=== PATIENT | male | born 1950 | race Caucasian/White ===

== ENCOUNTER 2019-10-22 13:43 | Emergency (ER) | payer OTHER ==
[2019-10-22] MEDS ORDERED: GLUCAGON 1 MG/VIAL ONE (14:46)
[2019-10-22 14:51] LABS: Basophils % 0.9 % (0-1.3); Lymphocytes % 25.3 % (15.3-44.8); MPV 7.8 fL (7.6-11.3); RBC Red Blood Cell Count 4.04 M/uL (4.33-5.43)
[2019-10-22 15:07] LABS: Potassium 3.7 mmol/L (3.5-5.1)
--- NOTE | 2019-10-22 15:36 | EDPHYS ---
Physician Documentation [facility] Name: Cristóbal aPlm Age: 69 yrs Sex: Male : 1950 Arrival Date: 10/22/2019 Time: 13:49 Bed 13 Private MD: Farrukh Lawton HPI: 14:15 This 69 yrs old Male presents to ER via Ambulatory with complaints of la1 Abdominal Pain, Difficulty Swallowing. 14:15 The patient presents with abdominal pain in the epigastric area. Onset: The la1 symptoms/episode began/occurred last night. The symptoms do not radiate. Associated signs and symptoms: none. The symptoms are described as sharp. Modifying factors: The symptoms are alleviated by nothing, the symptoms are aggravated by drinking, food. Severity of pain: At its worst the pain was moderate. The patient has experienced similar episodes in the past. 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 Every time after he eats it feels like food is getting stuck but he is usually able to get it down. Last night he ate a piece of steak and now feels like it is stuck, unable to eat food or drink water without vomiting. Historical: - Allergies: 14:08 No Known Allergies; iw 14:09 No Known Allergies; ca1 - Home Meds: 14:09 carvedilol oral oral 2 times per day [Active]; Lisinopril Oral twice a day [Active]; ca1 Metformin Oral once daily [Active]; Trazodone Oral [Active]; atorvastatin 40 mg Oral tab 1 tab once daily [Active]; loratadine oral oral [Active]; - PMHx: 14:09 High Cholesterol; Hypertension; Prostate Cancer; ca1 - PSHx: 14:09 Hernia repair; shoulder surgery; Knee surgery; ca1 - Immunization history:: Adult Immunizations up to date. - Social history:: Smoking status: Patient denies any tobacco usage or history of. ROS: 14:17 Constitutional: Negative for fever, chills, and weight loss, Eyes: Negative for injury, la1 pain, redness, and discharge, ENT: Negative for injury, pain, and discharge, Neck: Negative for injury, pain, and swelling, Cardiovascular: Negative for chest pain, palpitations, and edema, Respiratory: Negative for shortness of breath, cough, wheezing, and pleuritic chest pain. 14:17 Back: Negative for injury and pain, : Negative for injury, bleeding, discharge, and swelling, MS/Extremity: Negative for injury and deformity, Skin: Negative for injury, rash, and discoloration, Neuro: Negative for headache, weakness, numbness, tingling, and seizure. 14:17 Abdomen/GI: Positive for abdominal pain, nausea and vomiting. Exam: 14:18 Constitutional: This is a well developed, well nourished patient who is awake, alert, la1 and in no acute distress. Head/Face: Normocephalic, atraumatic. Eyes: Pupils equal round and reactive to light, extra-ocular motions intact. ENT: Mucous membranes moist. Neck: Trachea midline Chest/axilla: Normal chest wall appearance and motion. Cardiovascular: Regular rate and rhythm with a normal S1 and S2. Respiratory: Lungs have equal breath sounds bilaterally, clear to auscultation 14:18 Abdomen/GI: Inspection: obese Bowel sounds: normal, Palpation: abdomen is soft and non-tender, in all quadrants. Vital Signs: 14:05 BP 143 / 87; Pulse 73; Resp 16; Temp 98.0; Pulse Ox 97% on R/A; iw 14:55 BP 125 / 74; Pulse 74; Resp 16 S; Pulse Ox 96% on R/A; ca1 15:53 BP 136 / 75; Pulse 69; Resp 17 S; Pulse Ox 99% on R/A; ca1 16:35 BP 149 / 86; Pulse 76; Resp 17 S; Pulse Ox 99% on R/A; ca1 MDM: 14:00 Patient medically screened. la1 15:22 ED course: pt attempted to swallow fluids after glucagon IV but vomited about 30 la1 seconds after ingestion. Still feels like it is stuck there.. 14:14 Order name: CBC with Diff; Complete Time: 15:04 14:14 Order name: BMP; Complete Time: 15:08 la1 14:14 Order name: IV; Complete Time: 14:39 la1 Administered Medications: 14:46 Drug: Glucagon 1 mg Route: IVP; Site: right antecubital; ca1 16:03 Follow up: Response: No adverse reaction ca1 Disposition: 10/22/19 15:35 Transfer ordered to [facility]. Diagnosis is Esophageal obstruction. - Reason for transfer: Higher level of care. - Accepting physician is Dr. Bustos. - Condition is Stable. - Problem is new. - Symptoms have improved. Addendum: 10/23/2019 18:02 Co-signature as Attending Physician, Farrukh Cunningham MD I agree with the assessment and c diaz plan of care. Signatures: Dispatcher [employer] EDFarrukh Parada MD MD cha Williams, Irene, RN RN iw Milan Lafleur, SUPERVISOR [employer]-C SUPERVISOR [employer]-Cla1 Tika Wagner Cheryl RN RN ca1 Corrections: (The following items were deleted from the chart) 15:56 15:35 10/22/2019 15:35 Transfer ordered to [facility]. Diagnosis is eb Esophageal obstruction. Reason for transfer: Higher level of care. [facility] Condition is Stable. Problem is new. Symptoms have improved. [facility] 17:01 15:56 10/22/2019 15:35 Transfer ordered to [facility]. Diagnosis is ca1 Esophageal obstruction. Reason for transfer: Higher level of care. Accepting physician is Dr. Bustos. Condition is Stable. Problem is new. Symptoms have improved. eb
--- NOTE | 2019-10-22 15:36 | ER ---
Nurse's Notes [facility] Name: Cristóbal Palm Age: 69 yrs Sex: Male : 1950 Arrival Date: 10/22/2019 Time: 13:49 Bed 13 Private MD: Diagnosis: Esophageal obstruction Presentation: 14:05 Chief complaint: Patient states: opening to his stomach has been getting smaller, has iw had to have it stretched out in the past, is due to see GI this month, last night was eating steak and it won't pass into his stomach, has tried drinking water and ends up vomiting water back up. Coronavirus screen: The patient has NOT traveled to [place] in the past 14 days. Proceed with normal triage procedures. Ebola Screen: Patient negative for fever greater than or equal to 101.5 degrees Fahrenheit, and additional compatible Ebola Virus Disease symptoms Patient denies exposure to infectious person. Patient denies travel to an Ebola-affected area in the 21 days before illness onset. No symptoms or risks identified at this time. Initial Sepsis Screen: Does the patient meet any 2 criteria? No. Patient's initial sepsis screen is negative. Does the patient have a suspected source of infection? No. Patient's initial sepsis screen is negative. Risk Assessment: Do you want to hurt yourself or someone else? Patient reports no desire to harm self or others. Note pt sees Dr. Callum Stovall at [facility] for GI. 14:05 Method Of Arrival: Ambulatory iw 14:05 Acuity: LINDA 3 iw 14:10 Onset of symptoms was October 22, 2019. ca1 Historical: - Allergies: 14:08 No Known Allergies; iw 14:09 No Known Allergies; ca1 - Home Meds: 14:09 carvedilol oral oral 2 times per day [Active]; Lisinopril Oral twice a day [Active]; ca1 Metformin Oral once daily [Active]; Trazodone Oral [Active]; atorvastatin 40 mg Oral tab 1 tab once daily [Active]; loratadine oral oral [Active]; - PMHx: 14:09 High Cholesterol; Hypertension; Prostate Cancer; ca1 - PSHx: 14:09 Hernia repair; shoulder surgery; Knee surgery; ca1 - Immunization history:: Adult Immunizations up to date. - Social history:: Smoking status: Patient denies any tobacco usage or history of. Screenin:10 Abuse screen: Denies threats or abuse. Denies injuries from another. Nutritional ca1 screening: No deficits noted. Tuberculosis screening: No symptoms or risk factors identified. Fall Risk IV access (20 points). Assessment: 14:10 General: Appears in no apparent distress. comfortable, Behavior is calm, cooperative, ca1 appropriate for age. Pain: Complains of pain in epigastric area. Neuro: Level of Consciousness is awake, alert, obeys commands, Oriented to person, place, time, situation, Appropriate for age. Cardiovascular: Heart tones S1 S2 present Capillary refill < 3 seconds Patient's skin is warm and dry. Respiratory: Airway is patent Respiratory effort is even, unlabored, Respiratory pattern is regular, symmetrical, Breath sounds are clear bilaterally. GI: Abdomen is round non-distended, Bowel sounds present X 4 quads. Abd is soft and non tender X 4 quads. Reports vomiting. : No signs and/or symptoms were reported regarding the genitourinary system. EENT: Throat is clear. Derm: Skin is intact, is healthy with good turgor, Skin is pink, warm \T\ dry. Musculoskeletal: Circulation, motion, and sensation intact. Capillary refill < 3 seconds, Range of motion: intact in all extremities. 15:15 Reassessment: Patient appears in no apparent distress at this time. Patient and/or ca1 family updated on plan of care and expected duration. Pain level reassessed. Patient is alert, oriented x 3, equal unlabored respirations, skin warm/dry/pink. 16:00 Reassessment: Patient appears in no apparent distress at this time. Patient is alert, ca1 oriented x 3, equal unlabored respirations, skin warm/dry/pink. 16:12 Reassessment: Called report to Gume Leonardo RN at [facility] [place], [place]. ca1 16:28 Reassessment: Called for report to KARLA Rogers at [facility]. ca1 16:35 Reassessment: Patient appears in no apparent distress at this time. Patient is alert, ca1 oriented x 3, equal unlabored respirations, skin warm/dry/pink. Vital Signs: 14:05 BP 143 / 87; Pulse 73; Resp 16; Temp 98.0; Pulse Ox 97% on R/A; iw 14:55 BP 125 / 74; Pulse 74; Resp 16 S; Pulse Ox 96% on R/A; ca1 15:53 BP 136 / 75; Pulse 69; Resp 17 S; Pulse Ox 99% on R/A; ca1 16:35 BP 149 / 86; Pulse 76; Resp 17 S; Pulse Ox 99% on R/A; ca1 ED Course: 13:49 Patient arrived in ED. am2 13:57 Patricia Palmer, KARLA is Primary Nurse. ca1 14:00 Milan Lafleur FNP-C is PHCP. la1 14:00 Farrukh Cunningham MD is Attending Physician. la1 14:08 Triage completed. iw 14:08 Arm band placed on. iw 14:10 Patient has correct armband on for positive identification. Placed in gown. Bed in low ca1 position. Call light in reach. Side rails up X 1. Pulse ox on. NIBP on. Warm blanket given. 14:10 No provider procedures requiring assistance completed. ca1 14:39 Initial lab(s) drawn, by ms, sent to lab. Inserted saline lock: 20 gauge in right ca1 antecubital area, using aseptic technique. Blood collected. 14:59 Called [facility] to initiate transfer of patient to [facility]. replaced by [facility] Spoke with Ian Metcalf. 15:06 [facility] called to indicate their beds we at capacity, transfer denied. Spoke with replaced by [facility] Ian Metcalf. 15:11 Called [facility] in order to initiate transfer \T\ [address] 15:[address] Bustos the hospitalist supervisor air conditioning installer for [facility] [place] [place] with Dr. Octavio christianson for patient transfer consultation. 15:35 administrative approval given by Juana Gunn Rn / patient has been accepted to [facility] medicine floor/ report to be called to [phone]/ Dr. Bustos has accepted the patient in transfer. 16:55 Patient transferred, IV remains in place. ca1 Administered Medications: 14:46 Drug: Glucagon 1 mg Route: IVP; Site: right antecubital; ca1 16:03 Follow up: Response: No adverse reaction ca1 Outcome: 15:35 ER care complete, transfer ordered by . [place] 16:55 Transferred by ground EMS to [facility] [place], [place], Transfer form completed. X-rays sent ca1 w/ patient. 16:55 Condition: good ca1 16:55 Instructed on the need for transfer. 17:01 Patient left the ED. ca1 Signatures: Farrukh Cunningham MD MD cha Williams, Irene, RN RN iw Milan Lafleur, ASSISTANT [employer]CH [employer]PERATIONS MANAGER-C ASSISTANT [employer]ANCH OPERATIONS MANAGER-Cla1 Chika Bernard am2 Tika Wagner Cheryl, RN RN ca1 Diego Prieto 4 Corrections: (The following items were deleted from the chart) 15:12 14:10 GI: Abdomen is round non-distended, Bowel sounds present X 4 quads. Abd is soft ca1 and non tender X 4 quads. ca1 17:00 16:55 Reassessment: Patient appears in no apparent distress at this time. Patient is ca1 alert, oriented x 3, equal unlabored respirations, skin warm/dry/pink. ca1
[2019-10-22 17:12] VITALS: TEMP 98
[2019-10-22 17:15] VITALS: O2SAT 99
[2019-10-22 17:16] VITALS: BP 149/86
== END 2019-10-22 17:01 | disposition short-term general hospital (02) ==
LOC: ER 13:43
DX: K22.2 Esophageal obstruction (principal); I10 Essential (primary) hypertension; E78.00 Pure hypercholesterolemia, unspecified; Z85.46 Personal history of malignant neoplasm of prostate
CPT/HCPCS: 85025; 80048; 36415; 96374; 99285; J1610

== ENCOUNTER 2022-01-09 13:27 | Emergency (ER) | payer OTHER ==
--- OUTSIDE RECORDS SUMMARY | 2022-01-09 13:32 | XMS REPORT | Continuity of Care Document ---
:1950 Author Organization [facility] t Address [address] [place] [address] Care Team Providers Name Role Phone OHIA, OFFIONG Primary Care Physician Unavailable Robert VAUGHN Attending Clinician Unavailable KATRIN Attending Clinician Unavailable RADHA Attending Clinician Unavailable 39 Attending Clinician Unavailable Manoj YUSUF Attending Clinician Unavailable SREEKANTH Attending Clinician Unavailable RADHA Attending Clinician Unavailable MASSLUCRECIA Attending Clinician Unavailable SWAB, COVID SELF Attending Clinician Unavailable [id number] Attending Clinician Unavailable LAB47 Attending Clinician Unavailable MYKELSEYONLINE Attending Clinician Unavailable LAB61 Attending Clinician Unavailable RADIOLOGY Attending Clinician Unavailable VERÓNICA Attending Clinician Unavailable COVID-PFIZER BOOSTER Attending Clinician Unavailable LAB59 Attending Clinician Unavailable [id number] Attending Clinician Unavailable Katrin SHEARER Attending Clinician Jennifer Barba DO Attending Clinician Jennifer BARBA Attending Clinician Unavailable Sherie HASSAN Attending Clinician Unavailable RADHA Admitting Clinician Unavailable Payers Payer Name Policy Type Policy Number Effective Date Expiration Date Manoj monsivaismitali JARED [facility]ER [facility] 7 [id number] 2020 00:00:00 [employer] [id number] 2020 ADV 00:00:00 [facility] [id number] 2012 HMO 00:00:00 Problems Condition Condition Condition Status Onset Resolution Last Treating Co mments Source Name Details Category Date Date Treatment Clinician Date Coronary Coronary Disease Active Milose y artery artery 3-17 Seybold disease disease 00:00: involving involving 00 [place] coronary coronary artery of artery of [place] heart with heart with angina angina pectoris pectoris SCA SCA Disease Active Sara 10/28/21: 10/28/21: 3-17 Seybold IFR+ IFR+ 00:00: (0.85) LAD (0.85) LAD 00 lesion s/p lesion s/p PCI with PCI with PEG PEG (Synergy (Synergy XD XD 3.5x38mm), 3.5x38mm), moderate moderate Lcx dz Lcx dz (IFR 0.95) (IFR 0.95) Obesity Obesity Disease Active Sara (BMI (BMI 5-07 Seybold 30.0-34.9) 30.0-34.9) 00:00: 00 Bifascicul Bifascicul Disease Active Priyanka dove ar block ar block 6-16 Seybol d 00:00: 00 Abnormal Abnormal Disease Active Eric y EKG EKG 6-16 Seybold 00:00: 00 PVC PVC Disease Active Sara (premature (premature 6-16 Se ybold ventricula ventricula 00:00: r r 00 contractio contractio n) n) Chronic Chronic Disease Active Sara diastolic diastolic 4-09 Seyb old heart heart 00:00: failure failure 00 Essential Essential Disease Active Milo tan hypertensi hypertensi 4-09 Se ybold on, benign on, benign 00:00: 00 Anemia Anemia Disease Active Sara 5-29 Seybold 00:00: 00 CKD CKD Disease Active Sara (chronic (chronic 5-11 Seybol d kidney kidney 00:00: disease), disease), 00 stage II stage II Insomnia Insomnia Disease Active Eric y 6-05 Seybold 00:00: 00 History of History of Disease Active 2014-08 Priyanka elsey prostate prostate 0-22 Seybol d cancer cancer 00:00: 00 History of History of Disease Active Overview : Sara basal cell basal cell 1-01 Formattin Seybold cancer cancer 00:00: g of this 00 note might be different from the original. R malar cheek Mixed Mixed Disease Active Sara hyperlipid hyperlipid 2-07 Se ybold emia emia 00:00: 00 Hypertensi Hypertensi Disease Active K kirky ve heart ve heart 2-07 Seybol d and renal and renal 00:00: disease disease 00 with heart with heart failure failure GERD GERD Disease Active Sara (gastroeso (gastroeso 09-30 Se ybold phageal phageal 00:00: reflux reflux 00 disease) disease) Hearing Hearing Disease Active Sara loss loss 09-30 Seybold 00:00: 00 Allergic Allergic Disease Active Overview: Ezequiel connorey rhinitis, rhinitis, 09-30 Tktin S eybold cause cause 00:00: g of this unspecifie unspecifie 00 note d d might be different from the original. 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 multiple sites Allergies, Adverse Reactions, Alerts Allergy Allergy Status Severity Reaction(s) Onset Inactive Treating Comm ents Source Name Type Date Date Clinician NO KNOWN Allergy Active [facility] ALLERGIE S NO KNOWN Drug Active Univers ALLERGIE Class ity of S [facility] Social History Social Habit Start Date Stop Date Quantity Comments Source History SDOH Sara Thornton ld Alcohol Binge Alcohol intake 2021-11-09 2021-11-09 1 /d Sara child 00:00:00 00:00:00 Exposure to 2021-09-20 2021-10-20 Not sure Sara Seybol d SARS-CoV-2 00:00:00 13:19:00 (event) Tobacco use and 2020-09-03 2020-09-03 Never used Universit y of exposure 00:00:00 00:00:00 [facility] History SDWI 2020-02-07 2020-02-07 4 Sara Seybo ld Alcohol Frequency 00:00:00 00:00:00 History SDOH 2020-02-07 2020-02-07 1 Sara Kerryo ld Alcohol Std 00:00:00 00:00:00 Drinks Alcohol Comment 2017-10-20 2017-10-20 wine or bourbon Hien ey Seybold 00:00:00 00:00:00 and coke every evening Sex [birth year] Sara Nielson ybold 00:00:00 00:00:00 Smoking Status Start Date Stop Date Source Never smoked tobacco Sara guerrero Medications Ordered Filled Start Stop Current Ordering Indication Dosage Frequency Signature Comments Components Source Medication Medication Date Date Medication? Clinician (SIG) Name Name Multiple Yes Take by Sara Vitamins-Mi 3-19 mouth Seybold nerals 08:55: (MULTIVITAM 38 IN OR) Omeprazole Yes 20mg Take 20 mg K elsey 20 MG oral 3-19 by mouth Seybo ld Tablet 08:55: daily Delayed 38 Response Benzonatate Yes [id number] 200mg Q.[id number] Take 1 Sara 200 MG oral 3-16 [id number] capsule Seybold Capsule 00:00: 3D (200 mg 00 total) by mouth 3 times daily as needed for cough Lisinopril Yes [id number] TAKE 1 K elsey 5 MG oral 3-10 TABLET BY Seybo ld Tablet 00:00: MOUTH 00 EVERY DAY Clopidogrel 2021-0 Yes 75mg Take 75 mg Sara Bisulfate 3-07 by mouth Seybol d (Plavix) 75 00:00: daily MG oral 00 Tablet Trazodone 2020- Yes [id number] TAKE 1 K elsey HCl 50 MG 2-30 TABLET BY Seybo ld oral Tablet 00:00: MOUTH 00 EVERY EVENING Atorvastati 2020-08 Yes [id number] TAKE 1 Sara n Calcium 2-30 TABLET(40 Seybo ld 40 MG oral 00:00: MG) BY Tablet 00 MOUTH DAILY FOR CHOLESTERO L Carvedilol 2020-08 Yes [id number] TAKE 1 K elsey 6.25 MG 2-30 TABLET BY Seybold oral Tablet 00:00: MOUTH 00 TWICE DAILY Tamsulosin 2020-08 Yes [id number] TAKE 1 Sara HCl 0.4 MG 2-13 CAPSULE(0. Sey bold oral 00:00: 4 MG) BY Capsule 00 MOUTH DAILY Metformin 2020-08 Yes [id number] TAKE 1 K elsey HCl ER 500 2-07 TABLET BY Seyb old MG oral 00:00: MOUTH TABLET SR 00 EVERY DAY 24 HR WITH BREAKFAST Multiple 2020-08 Yes Take by Sara Vitamins-Mi 1-09 mouth Seybold nerals 08:58: (MULTIVITAM 05 IN OR) Omeprazole 2020-08 Yes 20mg Take 20 mg K elsey 20 MG oral 1-09 by mouth Seybo ld Tablet 08:58: daily Delayed 05 Response Tamsulosin 2020-08 Yes [id number] .4mg Take 1 Sara HCl 0.4 MG 1-09 capsule Seybol d oral 00:00: (0.4 mg Capsule 00 total) by mouth daily Trazodone 2020-08 Yes [id number] TAKE 1 K elsey HCl 50 MG 0-13 TABLET BY Seybo ld oral Tablet 00:00: MOUTH 00 EVERY EVENING Carvedilol 2020-08 Yes [id number] TAKE 1 K elsey 6.25 MG 0-12 TABLET BY Seybold oral Tablet 00:00: MOUTH 00 TWICE DAILY Multiple 2020-08 Yes Take by Sara Vitamins-Mi 0-07 mouth Seybold nerals 14:14: (MULTIVITAM 18 IN OR) Omeprazole 2020-08 Yes 20mg Take 20 mg K elsey 20 MG oral 0-07 by mouth Seybo ld Tablet 14:14: daily Delayed 18 Response Amoxicillin 2020-08 Yes [id number] 1{tbl} Take 1 Sara -Pot 0-07 tablet by Seybold Clavulanate 00:00: mouth 2 (Augmentin) 00 times 875-125 MG daily oral Tablet Benzonatate 2020-08 Yes [id number] 200mg Q.[id number] Take 1 Sara 200 MG oral 0-07 [id number] capsule Seybold Capsule 00:00: 3D (200 mg 00 total) by mouth 3 times daily as needed for cough Benzonatate 2020-08 Yes [id number] 200mg Q.[id number] Take 1 Sara 200 MG oral 0-07 [id number] capsule Seybold Capsule 00:00: 3D (200 mg 00 total) by mouth 3 times daily as needed for cough Atorvastati 2020-08 Yes [id number] TAKE 1 Sara n Calcium 0-07 TABLET(40 Seybo ld 40 MG oral 00:00: MG) BY Tablet 00 MOUTH DAILY FOR CHOLESTERO L Amoxicillin 2020-08- No [id number] 1{tbl} Take 1 Sara -Pot 0-07 11-09 tablet by Seybold Clavulanate 00:00: 00:00 mouth 2 (Augmentin) 00 :00 times 875-125 MG daily oral Tablet Lisinopril 0 Yes [id number] TAKE 1 K elsey 5 MG oral 8-25 TABLET BY Seybo ld Tablet 00:00: MOUTH 00 EVERY DAY Lisinopril 2020-0 Yes [id number] TAKE 1 K elsey 5 MG oral 8-25 TABLET BY Seybo ld Tablet 00:00: MOUTH 00 EVERY DAY Oxybutynin 0 Yes [id number] TAKE 1 Sara Chloride 10 7-26 TABLET(10 Sey bold MG oral 00:00: MG) BY TABLET SR 00 MOUTH 24 HR DAILY Trazodone 0 Yes [id number] TAKE 1 K elsey HCl 50 MG 7-26 TABLET BY Seybo ld oral Tablet 00:00: MOUTH 00 EVERY EVENING Oxybutynin 2020-0 Yes [id number] TAKE 1 Sara Chloride 10 7-26 TABLET(10 Sey bold MG oral 00:00: MG) BY TABLET SR 00 MOUTH 24 HR DAILY Carvedilol Yes [id number] TAKE 1 K elsey 6.25 MG 7-26 TABLET BY Seybold oral Tablet 00:00: MOUTH 00 TWICE DAILY Oxybutynin 0 Yes [id number] TAKE 1 Sara Chloride 10 7-26 TABLET(10 Sey bold MG oral 00:00: MG) BY TABLET SR 00 MOUTH 24 HR DAILY Atorvastati 2020- No [id number] TAKE 1 Sara n Calcium 7-16 10-07 TABLET(40 Seyb old 40 MG oral 00:00: 00:00 MG) BY Tablet 00 :00 MOUTH DAILY FOR CHOLESTERO L Metformin Yes [id number] TAKE 1 K elsey HCl ER 500 5-24 TABLET BY Seyb old MG oral 00:00: MOUTH TABLET SR 00 EVERY DAY 24 HR WITH BREAKFAST Metformin Yes [id number] TAKE 1 K elsey HCl ER 500 5-24 TABLET BY Seyb old MG oral 00:00: MOUTH TABLET SR 00 EVERY DAY 24 HR WITH BREAKFAST NaCl 0.9% 2020- No 1000mL at 999 Uni vers (NS) bolus 09-03 mL/hr, ity of infusion 11:30: 12:44 1,000 mL, Jasson as 1,000 mL 00 :00 IV Medical Infusion, Branch ONCE, [facility] 09/03/20 at 0530, FRACISCO famotidine No 20mg 20 mg, Univ ers (PEPCID 09-03 Slow IV ity of (PF)) 11:15: 10:01 Push, [place] injection 00 :00 ONCE, 1 Medical 20 mg dose, [facility] 09/03/20 at 0515, FRACISCO methylpredn No 125mg 125 mg, IV Univers isolone sod 09-03 Piggyback, i ty of succ 10:30: 09:25 ONCE, 1 [place] (SOLU-MEDRO 00 :00 dose, [facility] Med ical L) 09/03/20 at Branch injection 0430, STAT 125 mg NaCl 0.9% 2020- No 1000mL at 999 Uni vers (NS) bolus 09-03 mL/hr, ity of infusion 09:30: 11:27 1,000 mL, Jasson as 1,000 mL 00 :00 IV Medical Infusion, [place] ONCE, 1 dose, [facility] 09/03/20 at 0330, FRACISCO ondansetron Yes [id number] 4mg Take 1 Univers (ZOFRAN 1-11 tablet by ity of ODT) 4 mg 00:00: mouth [place] disintegrat 00 every 8 Medic al ing tablet (eight) Branch hours as needed for Nausea and Vomiting (N/V). predniSONE 2020- No [id number] 50mg Take 5 Univers 10 mg 09-0316 tablets by ity of tablet 00:00: 05:59 mouth [place] 00 :00 daily for Medical 4 days. Branch Trimix 2019-0 Yes [id number] .05mL Inject Milo sey Regular 7-16 0.05 mL in Seybol d Strength 00:00: the penis (Papaverine 00 as 30 directed mg/Phentola mine 1 mg/Prostagl andin 10 mcg per 1 mL) Tamsulosin Yes [id number] .4mg Take 1 Sara HCl 0.4 MG 03-08 capsule Seybol d oral Cap 00:00: (0.4 mg 00 total) by mouth daily Trimix 2019-0 Yes [id number] .05mL Inject Milo sey Regular 7-16 0.05 mL in Seybol d Strength 00:00: the penis (Papaverine 00 as 30 directed mg/Phentola mine 1 mg/Prostagl andin 10 mcg per 1 mL) Trimix 2019-0 Yes [id number] .05mL Inject Milo sey Regular 7-16 0.05 mL in Seybol d Strength 00:00: the penis (Papaverine 00 as 30 directed mg/Phentola mine 1 mg/Prostagl andin 10 mcg per 1 mL) Tamsulosin 2020- No [id number] .4mg Take 1 Sara HCl 0.4 MG 03-08 capsule Seybo ld oral Cap 00:00: 00:00 (0.4 mg 00 :00 total) by mouth daily Blood 2020-0 Yes Measure BP Sara Pressure 6-16 twice Seybold Monitoring 00:00: daily 7 AM (SPHYGMOMAN 00 and 7 PM. OMETER) does not apply Misc Blood 2020-0 Yes Measure BP Sara Pressure 6-16 twice Seybold Monitoring 00:00: daily 7 AM (SPHYGMOMAN 00 and 7 PM. OMETER) does not apply Misc Blood 2020-0 Yes Measure BP Sara Pressure 6-16 twice Seybold Monitoring 00:00: daily 7 AM (SPHYGMOMAN 00 and 7 PM. OMETER) does not apply Misc FLUTICASONE 2018-0 Yes 2 sprays Ke lsey PROPIONATE, 8-05 to each Seybo ld NASAL, 50 00:00: nostril MCG/ACT 00 daily nasal Suspension FLUTICASONE 2018- Yes 2 sprays Ke lsey PROPIONATE, 8-05 to each Seybo ld NASAL, 50 00:00: nostril MCG/ACT 00 daily nasal Suspension FLUTICASONE 2018- Yes 2 sprays Ke lsey PROPIONATE, 8-05 to each Seybo ld NASAL, 50 00:00: nostril MCG/ACT 00 daily nasal Suspension Loratadine Yes [id number] 1 tablet Sara (CLARITIN) 5-29 daily for Seyb old 10 MG oral 00:00: allergies tablet 00 Loratadine Yes [id number] 1 tablet Sara (CLARITIN) 5-29 daily for Seyb old 10 MG oral 00:00: allergies tablet 00 Loratadine Yes [id number] 1 tablet Sara (CLARITIN) 5-29 daily for Seyb old 10 MG oral 00:00: allergies tablet 00 Desoximetas Yes [id number] Apply Sara one 0.25 % 8-06 sparingly Seyb old apply 00:00: BID to externally 00 rash of Ointment arms/legs PRN flares only. Not for use on face, armpits or groin. Desoximetas Yes [id number] Apply Sara one 0.25 % 8-06 sparingly Seyb old apply 00:00: BID to externally 00 rash of Ointment arms/legs PRN flares only. Not for use on face, armpits or groin. Desoximetas Yes [id number] Apply Sara one 0.25 % 8-06 sparingly Seyb old apply 00:00: BID to externally 00 rash of Ointment arms/legs PRN flares only. Not for use on face, armpits or groin. metoprolol Yes 25mg Take 25 mg U nivers tartrate 6-21 by mouth 2 ity o f (LOPRESSOR) 13:50: (two) [place] 25 mg 10 times Medical tablet daily. Branch meloxicam Yes 15mg Take 15 mg Un anna (MOBIC) 15 6-21 by mouth ity o f mg tablet 13:43: daily. [place] [address] Medical Branch lovastatin Yes 20mg Take 20 mg U nivers (MEVACOR) 6-21 by mouth ity of 20 mg 13:43: at [place] [address] bedtime. Medical Branch MULTIVITAMI Yes Take by Un anna N 6-21 mouth. ity of W-MINERALS/ 13:43: [place] [address] Medical (CENTRUM Branch SILVER ORAL) aspirin 81 Yes 81mg Take 81 mg U nivers mg tablet 6-21 by mouth ity of 13:43: daily. [address] Branch Immunizations Ordered Immunization Filled Immunization Date Status Commen ts Source Name Name Influenza Virus 2021-07-02 Completed Sara Nielson ybold Vaccine, Quadrivalent, 00:00:00 High Dose, Age 65 And Up Covid-19 Vaccine 2021-07-02 Completed Sara noland ([employer]), Mrna-lnp, 00:00:00 Lei Protein, Pf, 30mcg/0.3ml,IM Influenza Virus 2021-07-02 Completed Sara Nielson ybold Vaccine, Quadrivalent, 00:00:00 High Dose, Age 65 And Up Covid-19 Vaccine 2021-07-02 Completed Sara noland ([employer]), Mrna-lnp, 00:00:00 Lei Protein, Pf, 30mcg/0.3ml,IM Influenza Virus 2020-05-10 Completed Sara Se ybold Vaccine, High Dose, 00:00:00 Age 65 And Up Influenza Virus 2020-05-10 Completed Sara Se ybold Vaccine, High Dose, 00:00:00 Age 65 And Up Influenza Virus 2020-05-10 Completed Sara Se ybold Vaccine, High Dose, 00:00:00 Age 65 And Up Influenza Virus 2019-05-21 Completed Sara Se ybold Vaccine, High Dose, 00:00:00 Age 65 And Up Influenza Virus 2019-05-21 Completed Sara Se ybold Vaccine, High Dose, 00:00:00 Age 65 And Up Influenza Virus 2019-05-21 Completed Sara Se ybold Vaccine, High Dose, 00:00:00 Age 65 And Up Shingles IM (Shingrix) 2019-04-02 Completed Ezequiel miller Seybold 00:00:00 Shingles IM (Shingrix) 2019-04-02 Completed Ezequiel connorey Seybold 00:00:00 Shingles IM (Shingrix) 2019-04-02 Completed Ke lsey Seybold 00:00:00 Shingles IM (Shingrix) 2019-01-19 Completed Ke lsey Seybold 00:00:00 Shingles IM (Shingrix) 2019-01-19 Completed Ke lsey Seybold 00:00:00 Shingles IM (Shingrix) 2019-01-19 Completed Ke lsey Seybold 00:00:00 Influenza Virus 2017-07-09 Completed Sara Se ybold Vaccine, High Dose, 00:00:00 Age 65 And Up Influenza Virus 2017-07-09 Completed Sara Se ybold Vaccine, High Dose, 00:00:00 Age 65 And Up Influenza Virus 2017-07-09 Completed Sara Se ybold Vaccine, High Dose, 00:00:00 Age 65 And Up Pneumococcal Vaccine, 2016-01-11 Completed Milo sey Seybold Conjugate 13 00:00:00 Tdap- (Boostrix, 2016-01-11 Completed Sara S eybold Adacel) 00:00:00 Pneumococcal Vaccine, 2016-01-11 Completed Milo sey Seybold Conjugate 13 00:00:00 Tdap- (Boostrix, 2016-01-11 Completed Sara S eybold Adacel) 00:00:00 Pneumococcal Vaccine, 2016-01-11 Completed Milo sey Seybold Conjugate 13 00:00:00 Tdap- (Boostrix, 2016-01-11 Completed Sara S eybold Adacel) 00:00:00 Pneumococcal Vaccine, 2015-01-19 Completed Milo sey Seybold Polysaccharide 00:00:00 Pneumococcal Vaccine, 2015-01-19 Completed Milo sey Seybold Polysaccharide 00:00:00 Pneumococcal Vaccine, 2015-01-19 Completed Milo sey Seybold Polysaccharide 00:00:00 Td- Tetanus & 2013-09-30 Completed Sara Seyb old Diphtheria Vaccine 00:00:00 (age 7+ years) Shingles SQ (Zostavax) 2013-09-30 Completed Ke lsey Seybold 00:00:00 Td- Tetanus & 2013-09-30 Completed Sara Seyb old Diphtheria Vaccine 00:00:00 (age 7+ years) Shingles SQ (Zostavax) 2013-09-30 Completed Ke lsey Seybold 00:00:00 Td- Tetanus & 2013-09-30 Completed Sara Payne old Diphtheria Vaccine 00:00:00 (age 7+ years) Shingles SQ (Zostavax) 2013-09-30 Completed Ezequiel connormalissa Nielsonybold 00:00:00 Vital Signs Vital Name Observation Time Observation Value Comments Source HEIGHT 2021-10-28 07:57:00 167.6 cm WEIGHT 2021-10-28 07:57:00 99.338 kg HEIGHT 2021-10-28 07:57:00 167.6 cm WEIGHT 2021-10-28 07:57:00 99.338 kg Systolic blood 2021-07-02 14:13:00 114 mm[Hg] Sara Seybold pressure Diastolic blood 2021-07-02 14:13:00 66 mm[Hg] Kelse y Seybold pressure Heart rate 2021-07-02 14:13:00 68 /min Sara leonardobold Body temperature 2021-07-02 14:13:00 36.67 Clarita Hien ey Seybold Respiratory rate 2021-07-02 14:13:00 16 /min Hien ey Seybold Body height 2021-07-02 14:13:00 167.6 cm Sara S eybold Body weight 2021-07-02 14:13:00 99.338 kg Sara Aranda eybold BMI 2021-07-02 14:13:00 35.35 kg/m2 Sara S malissabold Systolic blood 2020-09-03 12:45:00 119 mm[Hg] Univer sity of pressure [facility] Diastolic blood 2020-09-03 12:45:00 74 mm[Hg] Unive rsity of [facility] Heart rate 2020-09-03 12:45:00 70 /min [facility] Respiratory rate 2020-09-03 12:45:00 18 /min [facility] Oxygen saturation in 2020-09-03 12:45:00 98 /min [facility] Arterial blood by [facility] Pulse oximetry Branch Body temperature 2020-09-03 09:21:00 36.11 Clarita [facility] Body height 2020-09-03 09:21:[address] [facility] Body weight 2020-09-03 09:21:[address] [facility] BMI 2020-09-03 09:21:00 34.61 kg/m2 [facility] Procedures Procedure Date / Time Performed Performing Clinician Sourc e URINALYSIS NONAUTO W/O 2021-07-02 14:45:00 Ayah Wilkes SCOPE URINALYSIS 2020-09-03 09:49:00 Lilly Barba [facility] NOTICE OF PRIVACY 2020-09-03 09:39:35 Doctor Unassigned, No [facility] PRACTICES Name [facility] CONSENT/REFUSAL FOR 2020-09-03 09:39:13 Doctor Unassigned, No [facility] DIAGNOSIS AND Name [facility] TREATMENT LIPASE 2020-09-03 09:25:00 Lilly Barba [facility] TROPONIN I 2020-09-03 09:25:00 Lilly Barba [facility] HEPATIC FUNCTION PANEL 2020-09-03 09:25:00 Lilly Barba [facility] ([id number]) [facility] (ALB,T.PRO,BILI T,BU/BC,ALT,AST,ALK PHOS) BASIC METABOLIC PANEL 2020-09-03 09:25:00 Lilly Barba [facility] (NA, K, CL, CO2, Medical Branch GLUCOSE, BUN, CREATININE, CA) CBC WITH DIFF 2020-09-03 09:25:00 Lilly Barba [facility] Encounters Start End Encounter Admission Attending Care Care Encounter Source Date/Time Date/Time Type Type Clinicians Facility Department ID 2022-01-23 2022-01-23 Outpatient SARA VAUGHN [id number] Sara 09:45:00 09:45:00 YANCY butler 2022-01-23 2022-01-23 Outpatient SARA WILKES [id number] Sara 08:00:00 08:00:00 AYAH butler 2021-11-25 2021-11-25 Outpatient SARA GARCIA [id number] Sara 10:40:00 10:40:00 ALEJANDRO acevedo 2021-11-25 2021-11-25 Outpatient 39, HOLTER SARA DAVILA [id number] Sara 10:30:00 10:30:00 Seybol d 2021-11-09 2021-11-09 Telemedici LUCY YSUUF [id number] Sara 10:30:00 10:30:00 ne HINES [id number] Se ybold [id number] 2021-11-09 2021-11-09 Outpatient SARA STACK [id number] Sara 00:00:00 00:00:00 DEMARCUS Seybol d 2021-11-06 2021-11-06 Outpatient SARA WILKES [id number] Sara 00:00:00 00:00:00 AYAH Seybol d 2021-10-30 2021-10-30 Outpatient SARA WILKES [id number] Sara 00:00:00 00:00:00 AYAH Seybol d 2021-10-28 2021-10-28 Outpatient JEANETTE GARCIA, [facility] [id number] [facility] 07:44:00 18:25:00 ALEJANDRO 2021-10-28 2021-10-28 Outpatient SARA PADGETT [id number] Sara 00:00:00 00:00:00 CHRISTIN Seybol d 2021-10-24 2021-10-24 Outpatient SWAB, [facility] SARA DAVILA [id number] Sara 09:20:00 09:20:00 Seybol d 2021-10-24 2021-10-24 Outpatient [id number]-[id number] SARA DAVILA [id number] Sara 09:20:00 09:20:00 Seybol d 2021-10-18 2021-10-18 Outpatient SARA DAVILA [id number] Sara 08:00:00 08:00:00 Seybol d 2021-10-18 2021-10-18 Outpatient LAB47 SARA DAVILA [id number] Sara 07:35:00 07:35:00 Seybol d 2021-10-17 2021-10-17 Outpatient SARA DAVILA [id number] Sara 00:00:00 00:00:00 Seybol d 2021-10-16 2021-10-16 Outpatient SARA GARCIA [id number] Sara 00:00:00 00:00:00 ALEJANDRO acevedo 2021-10-15 2021-10-15 Outpatient HUONG DAVILA [id number] Sara 00:00:00 00:00:00 MD GEOVANNY Seybol d 2021-10-11 2021-10-11 Outpatient SARA DAVILA [id number] Sara 14:00:00 14:00:00 Seybol d 2021-10-11 2021-10-11 Outpatient SARA DAVILA [id number] Sara 10:00:00 10:00:00 Seybol d 2021-10-11 2021-10-11 Outpatient JAMABELENSherie DAVILA [id number] Sara 00:00:00 00:00:00 MD GEOVANNY Seybol d 2021-10-09 2021-10-09 Outpatient LAB61 SARA DAVILA [id number] Sara 07:50:00 07:50:00 Seybol d 2021-09-30 2021-09-30 Outpatient SARA GARCIA [id number] Sara 11:00:00 11:00:00 ALEJANDRO acevedo 2021-09-30 2021-09-30 Outpatient 39, HOLTER SARA DAVILA [id number] Sara 11:00:00 11:00:00 Seybol d 2021-09-30 2021-09-30 Outpatient RADIOLOGY, SARA DAVILA [id number] Sara 00:00:00 00:00:00 DEPT Seybol d 2021-09-20 2021-09-20 Outpatient VERÓNICASARA Mathew [id number] Sara 00:00:00 00:00:00 ATASU Seybol d 2021-08-21 2021-08-21 Outpatient SARA WILKES [id number] Sara 00:00:00 00:00:00 AYAH Seybol d 2021-08-03 2021-08-03 Outpatient SARA WILKES [id number] Sara 00:00:00 00:00:00 AYAH Seybol d 2021-07-30 2021-07-30 Outpatient KATRIN SARA DAVILA [id number] Sara 00:00:00 00:00:00 AYAH Seybol d 2021-07-02 2021-07-02 Outpatient COVID-PFIZE SARA DAVILA [id number] Sara 11:30:00 11:30:00 R Dominick PEOPLESNNA 2021-07-02 2021-07-02 Outpatient LAB59 SARA DAVILA [id number] Sara 09:20:00 09:20:00 Seybol d 2021-07-02 2021-07-02 Outpatient VRI91-VGG SARA DAVILA [id number] Sara 09:15:00 09:15:00 Seybol d 2021-07-02 2021-07-02 Office KatrinMELECIO parkerNNA [id number] Sara 07:33:48 07:48:48 Visit Ayah [id number] Se ybold [id number] 2021-05-30 2021-05-30 Telemedici Katrin PARAMJIT [id number] Sara 14:13:45 14:23:16 ne Ayah [id number] Se ybold [id number] 2021-05-13 2021-05-13 Outpatient HUONG DAVILA [id number] Sara 00:00:00 00:00:00 MD GEOVANNY Seybol d 2020-09-03 2020-09-03 Emergency Jameson KYROCIO [id number] Univers 03:23:00 06:47:00 Lilly Fernandez [id number] jessica [facility] [id number] [facility] [id number] [place] [address] [place] 2020-09-03 2020-09-03 Emergency X [facility] ERT [id number] [employer] 03:23:00 03:23:00 LILLY lopez [facility] 2019-10-22 2019-10-23 Emergency E SONYA, [facility] 00[facility] 19:46:00 00:35:00 LISBETH Results Test Description Test Time Test Comments Results Result Comments Source POCT-GLUCOSE METER 2021-10-28 14:10:44 Test Item Value Reference Range Interpretation Comme nts POC-GLUCOSE METER (BEAKER) 84 mg/dL 70-110 : TESTED AT [address] (test code = 1538) [facility], [address]: Poiser/Techni keshia ID = [id number] for BARBARA MOORE [id number] 13:37:51 Test Item Value Reference Range Interpretation Comments ACTIVATED CLOTTING TIME 249 sec : 74 -137 seconds, (BEAKER) (test code = Baseli ne: TESTED AT 441) [address], [facility]: Poiser/Techni keshia ID = [id number] for Do geo, Kumar [id number] 12:56:14 Test Item Value Reference Range Interpretation Comments ACTIVATED CLOTTING TIME 279 sec : 74 -137 seconds, (BEAKER) (test code = Baseli ne: TESTED AT 441) [address], [facility] 30: Poiser/Techni keshia ID = [id number] for Do geo, Kumar URINALYSIS NONAUTO W/O [id number] 14:45:00 Test Item Value Reference Range Interpretation Comments UD KETONES (test code neg 5-160 = 027066) UD GLUCOSE (test code neg 100-2000 = 373076) UD PROTEIN (test code neg Trace - 2000 mg/dL = 468279) UD LEUKOCYTES (test neg Trace - Large @ 2 code = 127419) min. UD NITRITE (test code neg Neg. - Pos. @ 60 = 328725) sec. UD UROBILINOGEN (test 0.2 mg/dL 0.2-8 code = 823704) UD PH (test code = See_Comment [Automat ed message] 846515) The system [employer] generated this result transmit natalie reference range : 5.0 - 8.5 @ 60 sec. . The reference range was not used to interpret this result as normal/abnormal . UD BLOOD (test code = neg Neg. - Large @ 60 243803) sec. UD SPECIFIC GRAVITY See_Comment [Automa natalie message] (test code = 841391) The sys tem which generated this result transmit natalie reference range : 1.000 - 1.030 @ 45 sec.. The refer ence range was not u sed to interpret th is result as normal/abnormal . UD BILIRUBIN (test neg Neg. - Large @ 45 code = 275408) sec. Sara [id number] 10:20:00 Test Item Value Reference Range Interpretation Comments APPEARANCE (test code = Clear Clear 8802170528) COLOR (test code = Yellow Yellow 0183331606) PH (test code = 4.8-8.0 0798260350) SP GRAVITY (test code = 1.003-1.030 5789014922) GLU U QUAL (test code = Normal Normal 0145765871) BLOOD (test code = Negative Negative INTERFERE NCE FROM 0849326207) ASCORBIC ACID M AY CAUSE FALSE NEG ATIVE RESULT KETONES (test code = 5 mg/dL Negative A 1539586665) PROTEIN (test code = Negative Negative 2887-8) UROBILIN (test code = Normal Normal 2453592365) BILIRUBIN (test code = Negative Negative 7643737839) NITRITE (test code = Negative Negative 5463609908) LEUK HUGO (test code = Negative Negative 6298866105) RBC/HPF (test code = See_Comment [Autom ated message] 4468660789) The system [employer] generated this result transmitted ref erence range: 0 - 3 HP F. The reference range was not used to int erpret this result as normal/abnormal . WBC/HPF (test code = See_Comment [Autom ated message] 0124749825) The system [employer] generated this result transmitted ref erence range: 0 - 5 HP F. The reference range was not used to int erpret this result as normal/abnormal . BACTERIA (test code = Few Negative A 5988764804) MUCOUS (test code = Slight Negative LPF A 9257776003) Lab Interpretation (test Abnormal code = 59434-3) [facility] [id number] 09:57:00 Test Item Value Reference Range Interpretation Comments TROPONIN I (test <0.012 See_Comment [Automated code = 4105357518) message] The system which generated this result transmitted reference range : <=0.034 ng/mL. The reference range was not used to interpr et this result as normal/abnormal . BE (test code = Equal or Less than BE) 0.034 ng/ml---Normal ?Note: Cardiac troponin begins to rise 3-4 hours after the onset of ischemia. Repeat in 4-6 hours if the sample was drawn within 3-4 hours of the onset of the symptom and found normal. Between 0.035 and 0.120 ng/mL--- Borderline. Questionable myocardial injury or necrosis ? ?Note: Serial measurement may be necessary to confirm or exclude the diagnosis of myocardial injury or necrosis; Clinical correlation (symptoms, EKGs, imaging studies, and others) required; Repeat in 4-6 hours if clinically indicated. ? Equal or Higher than 0.121 ng/mL---Abnormal. Myocardial Injury or Necrosis Likely ? Biotin has been reported to cause a negative bias, interpret results relative to patient's use of biotin. ? Lab Interpretation Normal (test code = 37918-4) [facility] (NA, K, CL, CO2, GLUCOSE, BUN, CREATININE, CA)2020-09-03 09:45:00 Test Item Value Reference Range Interpretation Comments NA (test code = 141 mmol/L 135-145 3394397843) K (test code = 4.5 mmol/L 3.5-5 2948447536) CL (test code = 112 mmol/L 98-108 H 8585062804) CO2 TOTAL (test code = 18 mmol/L 23-31 L 2930361373) AGAP (test code = 2-16 0670131499) BUN (test code = 29 mg/dL 7-23 H 1027020629) GLUCOSE (test code = 167 mg/dL 70-110 H 9934380179) CREATININE (test code = 1.10 mg/dL 0.6-1.25 3061845070) CALCIUM (test code = 8.8 mg/dL 8.6-10.6 3118948866) eGFR Calculation mL/min/1.73m2 (Non-) (test code = 5428147865) eGFR Calculation mL/min/1.73m2 () (test code = 0417441069) BE (test code = BE) Association of Glomerular Filtration Rate (GFR) and Staging of Kidney Disease* + --+ --+ ------+| GFR (mL/min/1.73 m2) ?| With Kidney Damage ?| ?Without Kidney Damage+ --------+ --------+ +| ?>90 ?| ?Stage one ?| ? Normal ?+ ---+ ---+ -------+| ?60-89 ?| ?Stage two ?| ? Decreased GFR ? + --+ --+ ------+| ?30-59 ?| ?Stage three ?| ? Stage three ? + --+ --+ ------+| ?15-29 ?| ?Stage four ? | ? Stage four ?+ ---+ ---+ -------+| ?<15 (or dialysis) ? ?| ?Stage five ? | ? Stage five ?+ ---+ ---+ -------+ *Each stage assumes the associated GFR level has been in effect for at least three months. ?Stages 1 to 5, with or without kidney disease, indicate chronic kidney disease. Notes: Determination of stages one and two (with eGFR >59mL/min/1.73 m2) requires estimation of kidney damage for at least three months as defined by structural or functional abnormalities of the kidney, manifested by either:Pathological abnormalities or Markers of kidney damage (including abnormalities in the composition of the blood or urine or abnormalities in imaging tests). Lab Interpretation Abnormal (test code = 83644-5) [facility] (ALB, T.PRO, BILI T, BU/BC, ALT, AST, ALK PHOS)2020-09-03 09:45:00 Test Item Value Reference Range Interpretation Comments TOTAL BILI (test code = 2746806753) 1.0 mg/dL 0.1-1.1 BILI UNCON (test code = 9287257760) 0.8 mg/dL 0.1-1.1 BILI CONJ (test code = 2542975923) 0.0 mg/dL 0-0.3 T PROTEIN (test code = 9630650434) 7.3 g/dL 6.3-8.2 ALBUMIN (test code = 1881071383) 4.2 g/dL 3.5-5 ALK PHOS (test code = 4793390817) 82 U/L 34-122 ALTv (test code = 1742-6) 29 U/L 5-50 AST(SGOT) (test code = 6997822799) 45 U/L 13-40 H Lab Interpretation (test code = Abnormal 67797-5) [facility] Hospital[facility] [id number] 09:45:00 Test Item Value Reference Range Interpretation Comments LIPASE (test code = 1432459472) 14 U/L 0-220 Lab Interpretation (test code = Normal 42809-8) [facility] with [id number] 09:32:00 Test Item Value Reference Range Interpretation Comments WBC (test code = See_Comment [Automated 9578-2) message] The sy stem which generated this result transmitted reference range : 4.20 - 10.70 10*3/?L. The reference range was not used to interpret this result as normal/abnormal . RBC (test code = See_Comment [Automated 243-8) message] The sy stem which generated this result transmitted reference range : 4.26 - 5.52 10*6/?L. The reference range was not used to interpret this result as normal/abnormal . HGB (test code = 14.8 g/dL 12.2-16.4 718-7) HCT (test code = 45.0 % 38.4-49.3 4544-3) MCV (test code = 93.9 fL 81.7-95.6 787-2) MCH (test code = 30.9 pg 26.1-32.7 785-6) MCHC (test code = 32.9 g/dL 31.2-35 786-4) RDW-SD (test code = 50.6 fL 38.5-51.6 39804-9) RDW-CV (test code = 14.4 % 12.1-15.4 788-0) PLT (test code = See_Comment [Automated 407-3) message] The sy stem which generated this result transmitted reference range : 150 - 328 10*3/ ?L. The reference r tran was not used to interpret this result as normal/abnormal . MPV (test code = 9.6 fL 9.8-13 L 73447-1) NRBC/100 WBC (test See_Comment [Automat ed code = 2709614995) message] The system which generated this result transmitted reference range : 0.0 - 10.0 /100 WBCs. The refer ence range was not u sed to interpret th is result as normal/abnormal . NRBC x10^3 (test code <0.01 See_Comment [Auto mated = 1730900197) message] The s ystem which generated this result transmitted reference range : 10*3/?L. The reference range was not used to interpret this result as normal/abnormal . GRAN MAT (NEUT) % 84.4 % (test code = 770-8) IMM GRAN % (test code 0.50 % = 6948405728) LYMPH % (test code = 9.9 % 736-9) MONO % (test code = 4.4 % 5905-5) EOS % (test code = 0.6 % 713-8) BASO % (test code = 0.2 % 706-2) GRAN MAT x10^3(ANC) 7.36 10*3/uL 1.99-6.95 H (test code = 2153508853) IMM GRAN x10^3 (test 0.04 10*3/uL 0-0.06 code = 4298738337) LYMPH x10^3 (test code 0.86 10*3/uL 1.09-3.23 L = 731-0) MONO x10^3 (test code 0.38 10*3/uL 0.36-1.02 = 742-7) EOS x10^3 (test code = 0.05 10*3/uL 0.06-0.53 L 711-2) BASO x10^3 (test code <0.03 0.01-0.09 = 704-7) Lab Interpretation Abnormal (test code = 99509-4) [facility]"
[2022-01-09 14:29] LABS: Urine Appearance TURBID (Clear); Urine Bilirubin Negative (Negative); Urine Blood 3+ (Negative); Urine Glucose Negative (Negative); Urine Protein 2+ (Negative); Urine Specific Gravity 1.025 (1.005-1.030)
[2022-01-09 14:36] LABS: Urine Bacteria <20 /HPF (NONE SEEN); Urine Color Dark Yellow (Yellow); Urine Microscopic Reflex ORDER UMIC; Urine RBC TNTC /HPF (NONE SEEN)
[2022-01-09 15:13] LABS: Absolute Lymphocytes (CBC) 0.9 K/uL (0.7-4.9); Lymphocytes % 20.2 % (15.3-44.8); MPV 6.8 fL (7.6-11.3); RBC Red Blood Cell Count 3.95 M/uL (4.33-5.43)
[2022-01-09 15:47] LABS: Albumin 3.5 g/dL (3.4-5.0); Bilirubin Total 0.6 mg/dL (0.2-1.0); Potassium 3.8 mmol/L (3.5-5.1); Protein, Total 7.3 g/dL (6.4-8.2)
--- NOTE | 2022-01-09 16:40 | RAD REPORT ---
EXAM DESCRIPTION: CTAbdomen Pelvis W Contrast - 01/09/2022 4:30 pm CLINICAL HISTORY: Abdominal pain. flank pain, hematuria COMPARISON: No comparisons TECHNIQUE: Biphasic CT imaging of the abdomen and pelvis was performed with 100 ml non-ionic IV cont rast. All CT scans are performed using dose optimization technique as appropriate and may include automated exposure control or mA/KV adjustment according to patient size. FINDINGS: The lung bases are clear.Moderate axial hiatal hernia. The liver, spleen, pancreas, adrenal glands and right kidney are within normal limits. 6 mm stone is present at the left UVJ resulting in moderate left hydroureter and severe left hydronephrosis. No bowel obstruction, free air, free fluid or abscess. Sigmoid diverticulosis coli is present without diverticulitis. Moderate stool retained throughout the colon. Nonvisualized appendix. No evidence o f significant lymphadenopathy. Moderate lumbosacral degenerative changes. IMPRESSION: 6 mm stone left UVJ resulting in [id number] left-sided hydronephrosis.
[2022-01-09] MEDS ORDERED: MAGNESIUM SULFATE 1 gm IVPB 1 GM/100 ML BAG IV ONE (17:38)
[2022-01-09] MEDS ORDERED: TAMSULOSIN 0.4 MG SR CAP ONE (17:38)
[2022-01-09] MEDS ORDERED: TETRACAINE HCL 0.5% 4ML OPTH ONE (17:46)
[2022-01-09] MEDS ORDERED: NA CHLORIDE 0.9% 500 ML ONE (17:49)
--- NOTE | 2022-01-09 19:04 | ER ---
Nurse's Notes [facility] Name: Cristóbal Palm Age: 71 yrs Sex: Male : 1950 Arrival Date: 01/09/2022 Time: 13:29 Bed 12 Private MD: Diagnosis: Calculus of ureter Presentation: 01/09 13:43 Chief complaint: Patient states: I woke up this morning, had no problem. At 0700 I went ld1 to the bathroom and had a stream of blood, occurred twice more after. Coronavirus screen: At this time, the client does not indicate any symptoms associated with coronavirus-19. Ebola Screen: No symptoms or risks identified at this time. Initial Sepsis Screen: Does the patient meet any 2 criteria? No. Patient's initial sepsis screen is negative. Does the patient have a suspected source of infection? No. Patient's initial sepsis screen is negative. Risk Assessment: Do you want to hurt yourself or someone else? Patient reports no desire to harm self or others. Onset of symptoms was January 09, 2022. 13:43 Method Of Arrival: Ambulatory ld1 13:43 Acuity: LINDA 3 ld1 Triage Assessment: 13:43 General: Appears in no apparent distress. comfortable, Behavior is calm, cooperative, ld1 appropriate for age. Pain: Denies pain. EENT: No signs and/or symptoms were reported regarding the EENT system. Neuro: Level of Consciousness is awake, alert, obeys commands, Oriented to person, place, time, situation. Respiratory: Airway is patent Respiratory effort is even, unlabored. : Urine is janina blood, Reports burning with urination. Historical: - Allergies: 13:43 No Known Allergies; ld1 - PMHx: 13:43 High Cholesterol; Hypertension; Prostate Cancer; ld1 - PSHx: 13:43 None; ld1 - Immunization history:: Adult Immunizations up to date, Client reports receiving the 2nd dose of the Covid vaccine. - Social history:: Smoking status: Patient denies any tobacco usage or history of. Patient/guardian denies using alcohol. Screenin:39 Abuse screen: Denies threats or abuse. Denies injuries from another. Nutritional ld1 screening: No deficits noted. Tuberculosis screening: No symptoms or risk factors identified. Fall Risk None identified. Assessment: 15:39 Reassessment: See triage assessment. ld1 18:57 Reassessment: Patient appears in no apparent distress at this time. Patient and/or iw family updated on plan of care and expected duration. Pain level reassessed. Patient is alert, oriented x 3, equal unlabored respirations, skin warm/dry/pink. Patient states feeling better. Patient states symptoms have improved. Vital Signs: 13:43 BP 127 / 87; Pulse 75; Resp 18; Temp 98.7(TE); Pulse Ox 98% on R/A; Weight 95.25 kg; ld1 Height 5 ft. 6 in. (167.64 cm); Pain 0/10; 13:43 Body Mass Index 33.89 (95.25 kg, 167.64 cm) ld1 ED Course: 13:29 Patient arrived in ED. am2 13:34 Patrick Braun PA is PHCP. dima 13:35 Farrukh Cunningham MD is Attending Physician. [facility] 13:43 Arm band placed on right wrist. ld1 13:45 Triage completed. ld1 14:27 Nessa Briones, RN is Primary Nurse. iw 15:39 Patient has correct armband on for positive identification. Placed in gown. Bed in low ld1 position. Call light in reach. Side rails up X2. Pulse ox on. NIBP on. Door closed. Noise minimized. Warm blanket given. 15:39 No provider procedures requiring assistance completed. ld1 16:32 CT Abd/Pelvis - IV Contrast Only In Process Unspecified. EDMS 18:57 IV discontinued, intact, bleeding controlled, No redness/swelling at site. Pressure iw dressing applied. 19:03 Devonte Arvizu MD is Referral Physician. [facility] Administered Medications: 17:45 Drug: Magnesium Sulfate 1 grams Route: IVPB; Infused Over: 1 hrs; Site: right iw antecubital; 18:45 Follow up: IV Status: Completed infusion iw 17:46 Drug: Flomax (tamsulosin) 0.4 mg Route: PO; iw 18:04 Follow up: Response: No adverse reaction iw 17:46 Drug: Tetracaine Drops 0.5 % 1 drops Route: Ophthalmic; Site: left eye; iw 17:49 Drug: NS 0.9% 500 ml Route: IV; Rate: bolus; Site: right antecubital; iw 18:20 Follow up: IV Status: Completed infusion iw Medication: 15:39 VIS not applicable for this client. ld1 Outcome: 19:03 Discharge ordered by . dima 19:10 Discharged to home ambulatory, with family. iw 19:10 Condition: good 19:10 Discharge instructions given to patient, Instructed on discharge instructions, follow up and referral plans. medication usage, Demonstrated understanding of instructions, follow-up care, medications, Prescriptions given X 2. 19:10 Patient left the ED. iw Signatures: Dispatcher [employer] EDMS Patrick Braun PA PA Nessa Urbano, RN RN iw Chika Bernard am2 Mahnaz Jimenez RN RN ld1
--- NOTE | 2022-01-09 19:05 | EDPHYS ---
Physician Documentation [facility] Name: Cristóbal Palm Age: 71 yrs Sex: Male : 1950 Arrival Date: 01/09/2022 Time: 13:29 Bed 12 Private MD: ED Physician Farrukh Cunningham HPI: 01/09 13:57 This 71 yrs old Male presents to ER via Ambulatory with complaints of blood in urine. jmm 13:57 The patient presents with urinary symptoms. Onset: The symptoms/episode began/occurred jmm acutely, this morning. This is a 71-year-old male with history of hyperlipidemia, hypertension, prostate cancer the presents emerged department with gross hematuria beginning earlier today. Patient states he had a couple episodes of dysuria approximately 2 days ago which had resolved. Denies vomiting, abdominal pain, flank pain.. Historical: - Allergies: 13:43 No Known Allergies; ld1 - PMHx: 13:43 High Cholesterol; Hypertension; Prostate Cancer; ld1 - PSHx: 13:43 None; ld1 - Immunization history:: Adult Immunizations up to date, Client reports receiving the 2nd dose of the Covid vaccine. - Social history:: Smoking status: Patient denies any tobacco usage or history of. Patient/guardian denies using alcohol. ROS: 13:57 Constitutional: Negative for fever, chills, and weight loss, Cardiovascular: Negative jmm for chest pain, palpitations, and edema, Respiratory: Negative for shortness of breath, cough, wheezing, and pleuritic chest pain. 13:57 : Positive for urinary symptoms. 13:57 All other systems are negative. Exam: 13:57 Constitutional: This is a well developed, well nourished patient who is awake, alert, jmm and in no acute distress. Head/Face: atraumatic. Eyes: EOMI, no conjunctival erythema appreciated ENT: Moist Mucus Membranes Neck: Trachea midline, Supple Chest/axilla: Normal chest wall appearance and motion. Cardiovascular: Regular rate and rhythm. No edema appreciated Respiratory: Normal respirations, no respiratory distress appreciated Abdomen/GI: Non distended, soft Back: Normal ROM Skin: General appearance color normal MS/ Extremity: Moves all extremities, no obvious deformities appreciated, no edema noted to the lower extremities Neuro: Awake and alert Psych: Behavior is normal, Mood is normal, Patient is cooperative and pleasant Vital Signs: 13:43 BP 127 / 87; Pulse 75; Resp 18; Temp 98.7(TE); Pulse Ox 98% on R/A; Weight 95.25 kg; ld1 Height 5 ft. 6 in. (167.64 cm); Pain 0/10; 13:43 Body Mass Index 33.89 (95.25 kg, 167.64 cm) ld1 MDM: 13:57 Patient medically screened. [facility] 19:03 Data reviewed: vital signs, nurses notes. Counseling: I had a detailed discussion with [facility] the patient and/or guardian regarding: the historical points, exam findings, and any diagnostic results supporting the discharge/admit diagnosis, lab results, radiology results, the need for outpatient follow up, to return to the emergency department if symptoms worsen or persist or if there are any questions or concerns that arise at home. 01/09 14:00 Order name: Urine Culture [facility] 01/09 14:29 Order name: Urinalysis; Complete Time: 14:53 [facility] 01/09 14:37 Order name: Urine Microscopic Only; Complete Time: 14:53 [facility] 01/09 14:54 Order name: CBC with Diff; Complete Time: 15:14 [facility] 01/09 14:00 Order name: Urine Dipstick-Ancillary (obtain specimen); Complete Time: 15:39 [facility] 01/09 14:54 Order name: CMP; Complete Time: 15:48 [facility] 01/09 14:54 Order name: Lipase; Complete Time: 15:48 [facility] 01/09 15:07 Order name: CT Abd/Pelvis - IV Contrast Only; Complete Time: 16:44 [facility] 01/09 14:54 Order name: IV Saline Lock; Complete Time: 15:06 [facility] 01/09 14:54 Order name: Labs collected and sent; Complete Time: 15:06 [facility] Administered Medications: 17:45 Drug: Magnesium Sulfate 1 grams Route: IVPB; Infused Over: 1 hrs; Site: right iw antecubital; 18:45 Follow up: IV Status: Completed infusion iw 17:46 Drug: Flomax (tamsulosin) 0.4 mg Route: PO; iw 18:04 Follow up: Response: No adverse reaction iw 17:46 Drug: Tetracaine Drops 0.5 % 1 drops Route: Ophthalmic; Site: left eye; iw 17:49 Drug: NS 0.9% 500 ml Route: IV; Rate: bolus; Site: right antecubital; iw 18:20 Follow up: IV Status: Completed infusion iw Disposition Summary: 01/09/22 19:03 Discharge Ordered Location: Home [facility] Condition: Stable [facility] Diagnosis - Calculus of ureter [facility] Followup: [facility] - With: Devonte Arvizu MD - When: 2 - 3 days - Reason: Recheck today's complaints, Continuance of care, Re-evaluation by your physician Discharge Instructions: - Discharge Summary Sheet [facility] - Kidney Stones [facility] - Dietary Guidelines to Help Prevent Kidney Stones [facility] Forms: - Medication Reconciliation Form [facility] - Thank You Letter [facility] - Antibiotic Education [facility] - Prescription Opioid Use [facility] Prescriptions: - tamsulosin 0.4 mg Oral capsule - take 1 capsule by ORAL route once daily 1/2 hour following the same meal each [facility] day; 20 capsule; Refills: 0, Product Selection Permitted - ondansetron 4 mg Oral tablet,disintegrating - take 1 tablet by ORAL route every 4-6 hours As needed; 20 tablet; Refills: 0, [facility] Product Selection Permitted Signatures: Dispatcher [employer] EDMS Patrick Braun PA PA [facility] Nessa Briones, KARLA RN iw Mahnaz Jimenez RN RN ld1 Corrections: (The following items were deleted from the chart) 14:25 14:00 UA MICROSCOPIC+U.LAB.BRZ ordered. EDMS EDMS 14:39 14:19 Urinalysis W/Microscopic ordered. EDMS EDMS
[2022-01-09 19:32] VITALS: BP 127/87; TEMP 98.7; O2SAT 98
== END 2022-01-09 19:10 | disposition home or self-care (01) ==
LOC: ER 13:27
DX: N20.1 Calculus of ureter (principal); I10 Essential (primary) hypertension; Z85.46 Personal history of malignant neoplasm of prostate
CPT/HCPCS: 96365; 87088; 85025; 87086; 36415; 83690; 80053; 74177; 99284; Q9967; J3475; J7040; 81003; 81015

== ENCOUNTER 2022-02-13 18:00 | Emergency (ER) | payer OTHER ==
--- OUTSIDE RECORDS SUMMARY | 2022-02-13 18:03 | XMS REPORT | Continuity of Care Document ---
:1950 Author Organization [facility] t Address [address] [place] [address] Care Team Providers Name Role Phone ELICIA HERRERA Primary Care Physician Unavailable KATRIN Attending Clinician Unavailable LAB45 Attending Clinician Unavailable Daniel SILVA Attending Clinician Robert Cortez MD Attending Clinician RADHA Attending Clinician Unavailable 39 Attending Clinician Unavailable Manoj YUSUF Attending Clinician Unavailable SREEKANTH Attending Clinician Unavailable RADHA Attending Clinician Unavailable MASSUMI Attending Clinician Unavailable SWAB, COVID SELF Attending Clinician Unavailable [id number] Attending Clinician Unavailable LAB47 Attending Clinician Unavailable MYKELSEYONLINE Attending Clinician Unavailable LAB61 Attending Clinician Unavailable RADIOLOGY Attending Clinician Unavailable VERÓINCA Attending Clinician Unavailable COVID-PFIZER BOOSTER Attending Clinician Unavailable LAB59 Attending Clinician Unavailable [id number] Attending Clinician Unavailable Katrin SHEARER Attending Clinician Jennifer Barba DO Attending Clinician Jennifer BARBA Attending Clinician Unavailable Sherie HASSAN Attending Clinician Unavailable RADHA Admitting Clinician Unavailable Payers Payer Name Policy Type Policy Number Effective Date Expiration Date [facility] 7 [id number] 2020 00:00:00 [employer] [id number] 2020 ADV 00:00:[address] [facility] [id number] 2012 HMO 00:00:00 Problems Condition Condition Condition Status Onset Resolution Last Treating Co mments Source Name Details Category Date Date Treatment Clinician Date Coronary Coronary Disease Active Jamey Milo y artery artery 3-17 Assessmen Seybold disease disease 00:00: t & Plan: involving involving 00 Formattin samish samish g of this coronary coronary note artery of artery of might be samish samish different heart with heart with from the angina angina original. pectoris pectoris Controlle d Continue good bp control.C ontinue medicatio ns. Followed by cardiolog y SCA SCA Disease Active Sara 10/28/21: 10/28/21: 3 Seybold IFR+ IFR+ 00:00: (0.85) LAD (0.85) LAD 00 lesion s/p lesion s/p PCI with PCI with PEG PEG (Synergy (Synergy XD XD 3.5x38mm), 3.5x38mm), moderate moderate Lcx dz Lcx dz (IFR 0.95) (IFR 0.95) Obesity Obesity Disease Active Jamey Ruiz (BMI (BMI 5-07 Assessmen Seybold 30.0-34.9) 30.0-34.9) 00:00: t & Plan: 00 Formattin g of this note might be different from the original. Controlle d. 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 Controlle d Continue medicatio ns. Followed by cardiolog y Essential Essential Disease Active Jamey tan hypertensi hypertensi 4-09 Assessmen Seybold on, benign on, benign 00:00: t & Plan: 00 Formattin g of this note might be different from the original. Controlle d Continue good bp control.C ontinue medicatio ns. Followed by cardiolog y Anemia Anemia Disease Active Jamey Ruiz 5-29 Assessmen ybold 00:00: t & Plan: 00 Formattin g of this note might be different from the original. Controlle d Continue to monitor CBC CKD CKD Disease Active Sara (chronic (chronic 01-01 Seybol d kidney kidney 00:00: disease), disease), 00 stage II stage II Insomnia Insomnia Disease Active Jamey Pedraza y 6 Assessmen Seybold 00:00: t & Plan: 00 Formattin g of this note might be different from the original. Controlle d Continue medicatio n.Do not drive, drink alcohol, or operate heavy machinery while using this medicatio n. History of History of Disease Active 2014-08 Priyanka dove prostate prostate 0- Seybol d cancer cancer 00:00: 00 History of History of Disease Active Overview : Sara basal cell basal cell 1- Formattin Seybold cancer cancer 00:00: g of this 00 note might be different from the original. R malar cheek Mixed Mixed Disease Active Jamey Riuz hyperlipid hyperlipid 2- Assessmen Seybcesar emia emia 00:00: t & Plan: 00 Formattin g of this note might be different from the original. Controlle d.Continu e statin.Ch david lipid panel Hypertensi Hypertensi Disease Active Jamey Mathew elsebeverly ve heart ve heart 2-07 Assessmen Piero bold and renal and renal 00:00: t & Plan: disease disease 00 Formattin with heart with heart g of this failure failure note might be different from the original. Controlle d. Continue good bp control.C ontinue to monitor creatinin e. Followed by cardiolog y GERD GERD Disease Active Sara (gastroeso (gastroeso 2- Se ybold phageal phageal 00:00: reflux reflux 00 disease) disease) Hearing Hearing Disease Active Sara loss loss 2 Seybold 00:00: 00 Allergic Allergic Disease Active Overview: Ezequiel lsey rhinitis, rhinitis, 2-07 Formattin S eybold cause cause 00:00: g of this unspecifie unspecifie 00 note d d might be different from the original. ICD-10Las t Assessmen t & Plan: Formattin g of this note might be different from the original. 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 Controlle d Discussed diet and exercise. 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 Controlalexis d Followed by urology Arthritis Arthritis Disease Active Overview: Sara Rivas g of this note might be different from the original. multiple sites Allergies, Adverse Reactions, Alerts Allergy Allergy Status Severity Reaction(s) Onset Inactive Treating Comm ents Source Name Type Date Date Clinician NO KNOWN Allergy Active [facility] ALLERGIE S NO KNOWN Drug Active Univers ALLERGIE Class ity of S [facility] Social History Social Habit Start Date Stop Date Quantity Comments Source History SDOK Sara acevedo Alcohol Binge Alcohol intake 2022-01-23 2022-01-23 1 /d Sara child 00:00:00 00:00:00 Exposure to 2021-09-20 2021-10-20 Not sure Sara butler SARS-CoV-2 00:00:00 13:19:00 (event) Tobacco use and 2020-09-03 2020-09-03 Never used Universit y of exposure 00:00:00 00:00:00 [facility] History SDOH 2020-02-07 2020-02-07 4 Sara Seybo ld Alcohol Frequency 00:00:00 00:00:00 History SDOH 2020-02-07 2020-02-07 1 Sara Payneo ld Alcohol Std 00:00:00 00:00:00 Drinks Alcohol Comment 2017-10-20 2017-10-20 wine or bourbon Hien leonardo Seybold 00:00:00 00:00:00 and coke every evening Sex [birth year] Sara Nielson ybcesar 00:00:00 00:00:00 Smoking Status Start Date Stop Date Source Never smoked tobacco Sara guerrero Medications Ordered Filled Start Stop Current Ordering Indication Dosage Frequency Signature Comments Components Source Medication Medication Date Date Medication? Clinician (SIG) Name Name Multiple Yes Take by Sara Vitamins-Mi 6-02 mouth Seybold nerals 14:02: (MULTIVITAM 45 IN OR) Omeprazole Yes 20mg Take 20 mg K elsey 20 MG oral 6-02 by mouth Seybo ld Tablet 14:02: daily Delayed 45 Response Multiple Yes Take by Sara Vitamins-Mi 6-02 mouth Seybold nerals 09:34: (MULTIVITAM 54 IN OR) Omeprazole Yes 20mg Take 20 mg K elsey 20 MG oral 6-02 by mouth Seybo ld Tablet 09:34: daily Delayed 54 Response Trimix Yes [id number] .05mL Inject Milo sey Regular 6-02 0.05 mL in Seybol d Strength 00:00: the penis (Papaverine 00 as 30 directed mg/Phentola mine 1 mg/Prostagl andin 10 mcg per 1 mL) Trimix Yes [id number] .05mL Inject Milo sey Regular 6-02 0.05 mL in Seybol d Strength 00:00: the penis (Papaverine 00 as 30 directed mg/Phentola mine 1 mg/Prostagl andin 10 mcg per 1 mL) Atorvastati Yes [id number] TAKE 1 Sara n Calcium 6-02 TABLET(40 Seybo ld 40 MG oral 00:00: MG) BY Tablet 00 MOUTH DAILY FOR CHOLESTERO L Trazodone Yes [id number] 100mg Take 2 Sara HCl 50 MG 6-02 tablets Seybold oral Tablet 00:00: (100 mg 00 total) by mouth every day at 5:00 PM Trimix 2021-0 2021- No [id number] .05mL Inject Ke lsey Regular 01-23 0.05 mL in Seybo ld Strength 00:00: 00:00 the penis (Papaverine 00 :00 as 30 directed mg/Phentola mine 1 mg/Prostagl andin 10 mcg per 1 mL) Carvedilol 0 Yes [id number] TAKE 1 K elsey 6.25 MG 4-09 TABLET BY Seybold oral Tablet 00:00: MOUTH 00 TWICE DAILY Carvedilol 2021-0 Yes [id number] TAKE 1 K elsey 6.25 MG 4-09 TABLET BY Seybold oral Tablet 00:00: MOUTH 00 TWICE DAILY Oxybutynin 2021-0 Yes [id number] TAKE 1 Sara Chloride 10 4-04 TABLET BY Sey bold MG oral 00:00: MOUTH TABLET SR 00 EVERY DAY 24 HR Tamsulosin 2021-0 Yes [id number] TAKE 1 Sara HCl 0.4 MG 4-04 CAPSULE BY Sey bold oral 00:00: MOUTH Capsule 00 EVERY DAY Benzonatate 2021-0 Yes [id number] 200mg Q.[id number] Take 1 Sara 200 MG oral 4-04 [id number] capsule Seybold Capsule 00:00: 3D (200 mg 00 total) by mouth 3 times daily as needed for cough Oxybutynin 2021-0 Yes [id number] TAKE 1 Sara Chloride 10 4-04 TABLET BY Sey bold MG oral 00:00: MOUTH TABLET SR 00 EVERY DAY 24 HR Tamsulosin 2021-0 Yes [id number] TAKE 1 Sara HCl 0.4 MG 4-04 CAPSULE BY Sey bold oral 00:00: MOUTH Capsule 00 EVERY DAY Benzonatate 2021-0 Yes [id number] 200mg Q.[id number] Take 1 Sara 200 MG oral 4-04 [id number] capsule Seybold Capsule 00:00: 3D (200 mg 00 total) by mouth 3 times daily as needed for cough Multiple 2021-0 Yes Take by Sara Vitamins-Mi 3-19 mouth Seybold nerals 08:55: (MULTIVITAM 38 IN OR) Omeprazole 2021-0 Yes 20mg Take 20 mg K elsey 20 MG oral 3-19 by mouth Seybo ld Tablet 08:55: daily Delayed 38 Response Benzonatate 2021-0 Yes [id number] 200mg Q.[id number] Take 1 Sara 200 MG oral 3-16 [id number] capsule Seybold Capsule 00:00: 3D (200 mg 00 total) by mouth 3 times daily as needed for cough Lisinopril 2021-0 Yes [id number] TAKE 1 K elsey 5 MG oral 3-10 TABLET BY Seybo ld Tablet 00:00: MOUTH 00 EVERY DAY Lisinopril 2021-0 Yes [id number] TAKE 1 K elsey 5 MG oral 3-10 TABLET BY Seybo ld Tablet 00:00: MOUTH 00 EVERY DAY Lisinopril 2021-0 Yes [id number] TAKE 1 K elsey 5 MG oral 3-10 TABLET BY Seybo ld Tablet 00:00: MOUTH 00 EVERY DAY Clopidogrel 2021-0 Yes 75mg Take 75 mg Sara Bisulfate 3-07 by mouth Seybol d (Plavix) 75 00:00: daily MG oral 00 Tablet Clopidogrel 2021-0 Yes 75mg Take 75 mg Sara Bisulfate 3-07 by mouth Seybol d 75 MG oral 00:00: daily Tablet 00 Clopidogrel 2021-0 Yes 75mg Take 75 mg Sara Bisulfate 3-07 by mouth Seybol d 75 MG oral 00:00: daily Tablet 00 Atorvastati 2020-08 Yes [id number] TAKE 1 Sara n Calcium 2-30 TABLET(40 Seybo ld 40 MG oral 00:00: MG) BY Tablet 00 MOUTH DAILY FOR CHOLESTERO L Carvedilol 2020-08 Yes [id number] TAKE 1 K elsey 6.25 MG 2-30 TABLET BY Seybold oral Tablet 00:00: MOUTH 00 TWICE DAILY Trazodone 2020-08 Yes [id number] TAKE 1 K elsey HCl 50 MG 2-30 TABLET BY Seybo ld oral Tablet 00:00: MOUTH 00 EVERY EVENING Atorvastati 2020-08 Yes [id number] TAKE 1 Sara n Calcium 2-30 TABLET(40 Seybo ld 40 MG oral 00:00: MG) BY Tablet 00 MOUTH DAILY FOR CHOLESTERO L Trazodone 2020-08 Yes [id number] TAKE 1 K elsey HCl 50 MG 2-30 TABLET BY Seybo ld oral Tablet 00:00: MOUTH 00 EVERY EVENING Atorvastati 2020-08- No [id number] TAKE 1 Sara n Calcium 2-30 06-02 TABLET(40 Seyb old 40 MG oral 00:00: 00:00 MG) BY Tablet 00 :00 MOUTH DAILY FOR CHOLESTERO L Trazodone 2020-08- No [id number] TAKE 1 Sara HCl 50 MG 2-30 06-02 TABLET BY Seyb old oral Tablet 00:00: 00:00 MOUTH 00 :00 EVERY EVENING Tamsulosin 2020-08 Yes [id number] TAKE 1 Sara HCl 0.4 MG 2-13 CAPSULE(0. Sey bold oral 00:00: 4 MG) BY Capsule 00 MOUTH DAILY Metformin 2020-08 Yes [id number] TAKE 1 K elsey HCl ER 500 2-07 TABLET BY Seyb old MG oral 00:00: MOUTH TABLET SR 00 EVERY DAY 24 HR WITH BREAKFAST Metformin 2020-08 Yes [id number] TAKE 1 K elsey HCl ER 500 2-07 TABLET BY Seyb old MG oral 00:00: MOUTH TABLET SR 00 EVERY DAY 24 HR WITH BREAKFAST Metformin 2020-08 Yes [id number] TAKE 1 K elsey HCl ER 500 2-07 TABLET BY Seyb old MG oral 00:00: MOUTH TABLET SR 00 EVERY DAY 24 HR WITH BREAKFAST Multiple 2020-08 Yes Take by Sara Vitamins-Mi 1-09 mouth Seybold nerals 08:58: (MULTIVITAM 05 IN OR) Omeprazole 2020-08 Yes 20mg Take 20 mg K elsey 20 MG oral -09 by mouth Seybo ld Tablet 08:58: daily Delayed 05 Response Tamsulosin 2020-08 Yes [id number] .4mg Take 1 Sara HCl 0.4 MG 1-09 capsule Seybol d oral 00:00: (0.4 mg Capsule 00 total) by mouth daily Trazodone 2020-08 Yes [id number] TAKE 1 K elsey HCl 50 MG 0-13 TABLET BY Seybo ld oral Tablet 00:00: MOUTH 00 EVERY EVENING Carvedilol 2020-08 Yes [id number] TAKE 1 K elsey 6.25 MG 0-12 TABLET BY Seybold oral Tablet 00:00: MOUTH 00 TWICE DAILY Multiple 2020-08 Yes Take by Sara Vitamins-Mi 0-07 mouth Seybold nerals 14:14: (MULTIVITAM 18 IN OR) Omeprazole 2020-08 Yes 20mg Take 20 mg K elsey 20 MG oral 0-07 by mouth Seybo ld Tablet 14:14: daily Delayed 18 Response Amoxicillin 2020-08 Yes [id number] 1{tbl} Take 1 Sara -Pot 0-07 tablet by Seybold Clavulanate 00:00: mouth 2 (Augmentin) 00 times 875-125 MG daily oral Tablet Benzonatate 2020-08 Yes [id number] 200mg Q.[id number] Take 1 Sara 200 MG oral 0-07 [id number] capsule Seybold Capsule 00:00: 3D (200 mg 00 total) by mouth 3 times daily as needed for cough Benzonatate 2020-08 Yes [id number] 200mg Q.[id number] Take 1 Sara 200 MG oral 0-07 [id number] capsule Seybold Capsule 00:00: 3D (200 mg 00 total) by mouth 3 times daily as needed for cough Atorvastati 2020-08 Yes [id number] TAKE 1 Sara n Calcium 0-07 TABLET(40 Seybo ld 40 MG oral 00:00: MG) BY Tablet 00 MOUTH DAILY FOR CHOLESTERO L Amoxicillin 2020-08- No [id number] 1{tbl} Take 1 Sara -Pot 0-07 11-09 tablet by Seybold Clavulanate 00:00: 00:00 mouth 2 (Augmentin) 00 :00 times 875-125 MG daily oral Tablet Lisinopril 0 Yes [id number] TAKE 1 K elsey 5 MG oral 8-25 TABLET BY Seybo ld Tablet 00:00: MOUTH 00 EVERY DAY Lisinopril 0 Yes [id number] TAKE 1 K elsey 5 MG oral 8-25 TABLET BY Seybo ld Tablet 00:00: MOUTH 00 EVERY DAY Oxybutynin Yes [id number] TAKE 1 Sara Chloride 10 7-26 TABLET(10 Sey bold MG oral 00:00: MG) BY TABLET SR 00 MOUTH 24 HR DAILY Trazodone 0 Yes [id number] TAKE 1 K elsey HCl 50 MG 7-26 TABLET BY Seybo ld oral Tablet 00:00: MOUTH 00 EVERY EVENING Oxybutynin Yes [id number] TAKE 1 Sara Chloride 10 7-26 TABLET(10 Sey bold MG oral 00:00: MG) BY TABLET SR 00 MOUTH 24 HR DAILY Carvedilol Yes [id number] TAKE 1 K elsey 6.25 MG 7-26 TABLET BY Seybold oral Tablet 00:00: MOUTH 00 TWICE DAILY Oxybutynin Yes [id number] TAKE 1 Sara Chloride 10 7-26 TABLET(10 Sey bold MG oral 00:00: MG) BY TABLET SR 00 MOUTH 24 HR DAILY Atorvastati 2020- No [id number] TAKE 1 Sara n Calcium 7-16 10-07 TABLET(40 Seyb old 40 MG oral 00:00: 00:00 MG) BY Tablet 00 :00 MOUTH DAILY FOR CHOLESTERO L Metformin Yes [id number] TAKE 1 K elsey HCl ER 500 5-24 TABLET BY Seyb old MG oral 00:00: MOUTH TABLET SR 00 EVERY DAY 24 HR WITH BREAKFAST Metformin Yes [id number] TAKE 1 K elsey HCl ER 500 5-24 TABLET BY Seyb old MG oral 00:00: MOUTH TABLET SR 00 EVERY DAY 24 HR WITH BREAKFAST NaCl 0.9% 2020- No 1000mL at 999 Uni vers (NS) bolus 09-03 mL/hr, ity of infusion 11:30: 12:44 1,000 mL, Jasson as 1,000 mL 00 :00 IV Medical Infusion, [place] ONCE, 1 dose, [facility] 09/03/20 at 0530, FRACISCO famotidine 2020- No 20mg 20 mg, [facility] (PEPCID 09-03 Slow IV ity of (PF)) 11:15: 10:01 Push, [place] injection 00 :00 ONCE, 1 Medical 20 mg dose, [facility] 09/03/20 at 0515, FRACISCO methylpredn 2020- No 125mg 125 mg, IV Univers isolone sod 09-03 Piggyback, i ty of succ 10:30: 09:25 ONCE, 1 [place] (SOLU-MEDRO 00 :00 dose, [facility] Med ical L) 09/03/20 at Branch injection 0430, STAT 125 mg NaCl 0.9% 2020- No 1000mL at 999 Uni vers (NS) bolus 09-03-11 mL/hr, ity of infusion 09:30: 11:27 1,000 mL, Jasson as 1,000 mL 00 :00 IV Medical Infusion, Branch ONCE, 1 dose, 09/03/20 at 0330, FRACISCO ondansetron Yes [id number] 4mg Take 1 Univers (ZOFRAN 1-11 tablet by ity of ODT) 4 mg 00:00: mouth [place] disintegrat 00 every 8 Medic al ing tablet (eight) Branch hours as needed for Nausea and Vomiting (N/V). predniSONE 2020- No [id number] 50mg Take 5 Univers 10 mg 09-03-16 tablets by ity of tablet 00:00: 05:59 mouth [place] 00 :00 daily for Medical 4 days. Branch Trimix Yes [id number] .05mL Inject Milo sey Regular 7-16 0.05 mL in Seybol d Strength 00:00: the penis (Papaverine 00 as 30 directed mg/Phentola mine 1 mg/Prostagl andin 10 mcg per 1 mL) Tamsulosin Yes [id number] .4mg Take 1 Sara HCl 0.4 MG 7-16 capsule Seybol d oral Cap 00:00: (0.4 mg 00 total) by mouth daily Trimix Yes [id number] .05mL Inject Milo sey Regular 7-16 0.05 mL in Seybol d Strength 00:00: the penis (Papaverine 00 as 30 directed mg/Phentola mine 1 mg/Prostagl andin 10 mcg per 1 mL) Trimix Yes [id number] .05mL Inject Milo sey Regular 7-16 0.05 mL in Seybol d Strength 00:00: the penis (Papaverine 00 as 30 directed mg/Phentola mine 1 mg/Prostagl andin 10 mcg per 1 mL) Trimix 2021- No [id number] .05mL Inject Ke lsey Regular 7-16 06-02 0.05 mL in Seybo ld Strength 00:00: 00:00 the penis (Papaverine 00 :00 as 30 directed mg/Phentola mine 1 mg/Prostagl andin 10 mcg per 1 mL) Tamsulosin 2019-2020- No [id number] .4mg Take 1 Sara HCl 0.4 MG [...] PM. OMETER) does not apply Misc FLUTICASONE 2018- Yes 2 sprays Ke lsey PROPIONATE, 8-05 to each Seybo ld NASAL, 50 00:00: nostril MCG/ACT 00 daily nasal Suspension FLUTICASONE Yes 2 sprays Ke lsey PROPIONATE, 8-05 to each Seybo ld NASAL, 50 00:00: nostril MCG/ACT 00 daily nasal Suspension FLUTICASONE Yes 2 sprays Ke lsey PROPIONATE, 8-05 [...] nostril MCG/ACT 00 daily nasal Suspension Loratadine 2018-0 Yes [id number] 1 tablet Sara (CLARITIN) 5-29 daily for Seyb old 10 MG oral 00:00: allergies tablet 00 Loratadine 2019-0 Yes [id number] 1 tablet Sara (CLARITIN) 5-29 daily for Seyb old 10 MG oral 00:00: allergies tablet 00 Loratadine 2019-0 Yes [id number] 1 tablet Sara (CLARITIN) 5-29 daily for Seyb old 10 MG oral 00:00: allergies tablet 00 Loratadine 2019-0 Yes [id number] 1 tablet Sara (CLARITIN) 5-29 daily for Seyb old 10 MG oral 00:00: allergies tablet 00 Loratadine 2019-0 Yes [id number] 1 tablet Sara (CLARITIN) 5-29 daily for Seyb old 10 MG oral 00:00: allergies tablet 00 Desoximetas Yes [id number] Apply Sara one 0.25 % 8-06 sparingly Seyb old apply 00:00: BID to externally 00 rash of Ointment arms/legs PRN flares only. Not for use on face, armpits or groin. Desoximetas Yes [id number] Apply Sara one 0.25 % 8-06 sparingly Seyb old apply 00:00: BID to externally 00 rash of Ointment arms/legs PRN flares only. Not for use on face, armpits or groin. Desoximetas Yes [id number] Apply Sara one 0.25 % 8-06 sparingly Seyb old apply 00:00: BID to externally 00 rash of Ointment arms/legs PRN flares only. Not for use on face, armpits or groin. Desoximetas Yes [id number] Apply Sara one 0.25 % 8-06 sparingly Seyb old apply 00:00: BID to externally 00 rash of Ointment arms/legs PRN flares only. Not for use on face, armpits or groin. Desoximetas Yes [id number] Apply Sara one 0.25 % 8-06 sparingly Seyb old apply 00:00: BID to externally 00 rash of Ointment arms/legs PRN flares only. Not for use on face, armpits or groin. metoprolol 2013-0 Yes 25mg Take 25 mg U nivers tartrate 6-21 by mouth 2 ity o f (LOPRESSOR) 13:50: (two) [place] 25 mg 10 times Medical tablet daily. Branch MULTIVITAMI Yes Take by Un anna N 6-21 mouth. ity of W-/ 13:43: [place] [id number] Medical (CENTRUM Branch SILVER ORAL) aspirin 81 Yes 81mg Take 81 mg U nivers mg tablet 6-21 by mouth ity of 13:43: daily. [address] Branch meloxicam Yes 15mg Take 15 mg Un anna (MOBIC) 15 6-21 by mouth ity o f mg tablet 13:43: daily. [address] lovastatin Yes 20mg Take 20 mg U nivers (MEVACOR) 6-21 by mouth ity of 20 mg 13:43: at [facility] 57 bedtime. [facility] Immunizations Ordered Immunization Filled Immunization Date Status Commen ts Source Name Name Influenza Virus 2021-07-02 Completed Sara herreraold Vaccine, Quadrivalent, 00:00:00 High Dose, Age 65 And Up Covid-19 Vaccine 2021-07-02 Completed Sara noland ([employer]), Mrna-lnp, 00:00:00 Lei Protein, Pf, 30mcg/0.3ml,IM Influenza Virus 2021-07-02 Completed Sara Nielson ybold Vaccine, Quadrivalent, 00:00:00 High Dose, Age 65 And Up Covid-19 Vaccine 2021-07-02 Completed Sara noland ([employer]), Mrna-lnp, 00:00:00 Lei Protein, Pf, 30mcg/0.3ml,IM Influenza Virus 2021-07-02 Completed Sara Nielson ybold Vaccine, Quadrivalent, 00:00:00 High Dose, Age 65 And Up Covid-19 Vaccine 2021-07-02 Completed Sara noland ([employer]), Mrna-lnp, 00:00:00 Lei Protein, Pf, 30mcg/0.3ml,IM Influenza Virus 2021-07-02 Completed Sara Nielson ybold Vaccine, Quadrivalent, 00:00:00 High Dose, Age 65 And Up Covid-19 Vaccine 2021-07-02 Completed Sara noland ([employer]), Mrna-lnp, 00:00:00 Lei Protein, Pf, 30mcg/0.3ml,IM Influenza [...] And Up Shingles IM (Shingrix) 2019-04-02 Completed Ke lsey Seybold 00:00:00 Shingles IM (Shingrix) 2019-04-02 Completed Ke lsey Seybold 00:00:00 Shingles IM (Shingrix) 2019-04-02 Completed Ke lsey Seybold 00:00:00 Shingles IM (Shingrix) 2019-04-02 Completed Ke lsey Seybold 00:00:00 Shingles IM (Shingrix) 2019-04-02 Completed [...] (Zostavax) 2013-09-30 Completed Ke lsey Seybold 00:00:00 Vital Signs Vital Name Observation Time Observation Value Comments Source Systolic blood 2022-01-23 18:59:00 106 mm[Hg] Sara Seybold pressure Diastolic blood 2022-01-23 18:59:00 60 mm[Hg] Kelse y Seybold pressure Heart rate 2022-01-23 18:59:00 72 /min Sara noland Body temperature 2022-01-23 18:59:00 36.78 Clarita Hien leonardo Seybcesar Respiratory rate 2022-01-23 18:59:00 18 /min Hien leonardo javiercesar Body height 2022-01-23 18:59:00 167.6 cm Sara noland Body weight 2022-01-23 18:59:00 97.523 kg Sara noland BMI 2022-01-23 18:59:00 34.70 kg/m2 Sara S eybold Systolic blood 2022-01-23 14:35:00 122 mm[Hg] Sara Seybold pressure Diastolic blood 2022-01-23 14:35:00 70 mm[Hg] Kelse y Seybold pressure Heart rate 2022-01-23 14:35:00 60 /min Sara Aranda eybold Body temperature 2022-01-23 14:35:00 36.67 Clarita Hien ey Seybold Respiratory rate 2022-01-23 14:35:00 16 /min Hien ey Seybold Body height 2022-01-23 14:35:00 167.6 cm Sara Aranda eybold Body weight 2022-01-23 14:35:00 97.523 kg Sara Aranda eybold BMI 2022-01-23 14:35:00 34.70 kg/m2 Sraa Aranda eybold HEIGHT 2021-10-28 07:57:00 167.6 cm WEIGHT 2021-10-28 07:57:00 99.338 kg HEIGHT 2021-10-28 07:57:00 167.6 cm WEIGHT 2021-10-28 07:57:00 99.338 kg Systolic blood 2021-07-02 14:13:00 114 mm[Hg] Sara Seybold pressure Diastolic blood 2021-07-02 14:13:00 66 mm[Hg] Kelse y Seybold pressure Heart rate 2021-07-02 14:13:00 68 /min Sara Aranda eybold Body temperature 2021-07-02 14:13:00 36.67 Clarita Hien ey Seybold Respiratory rate 2021-07-02 14:13:00 16 /min Hien ey Seybold Body height 2021-07-02 14:13:00 167.6 cm Sara Aranda eybold Body weight 2021-07-02 14:13:00 99.338 kg Sara Aranda eybold BMI 2021-07-02 14:13:00 35.35 kg/m2 Sara S eybold Systolic blood 2020-09-03 12:45:00 119 mm[Hg] Ranjana garcia of [facility] Diastolic blood 2020-09-03 12:45:00 74 mm[Hg] [facility] rsity of pressure [facility] Heart rate 2020-09-03 12:45:00 70 /min [facility] Respiratory rate 2020-09-03 12:45:00 18 /min [facility] Oxygen saturation in 2020-09-03 12:45:00 98 /min [facility] Arterial blood by [facility] Pulse oximetry Branch Body temperature 2020-09-03 09:21:00 36.11 [facility] Body height 2020-09-03 09:21:00 170.2 cm [facility] Body weight 2020-09-03 09:21:00 100.245 kg [facility] BMI 2020-09-03 09:21:00 34.61 kg/m2 [facility] Procedures Procedure Date / Time Performed Performing Clinician Sourc e URINALYSIS NONAUTO W/O 2021-07-02 14:45:00 Ayah Wilkes SCOPE URINALYSIS 2020-09-03 09:49:00 Lilly Barba [facility] NOTICE OF PRIVACY 2020-09-03 09:39:35 Doctor Unassigned, No [facility] PRACTICES Name [facility] CONSENT/REFUSAL FOR 2020-09-03 09:39:13 Doctor Unassigned, No [facility] DIAGNOSIS AND Name [facility] Branch TREATMENT LIPASE 2020-09-03 09:25:00 Lilly Barba [facility] TROPONIN I 2020-09-03 09:25:00 Lilly Barba [facility] HEPATIC FUNCTION PANEL 2020-09-03 09:25:00 [id number] (ALB,T.PRO,BILI T,BU/BC,ALT,AST,ALK PHOS) BASIC METABOLIC PANEL 2020-09-03 09:25:00 Lilly Barba [facility] (NA, K, CL, CO2, Medical Branch GLUCOSE, BUN, CREATININE, CA) CBC WITH DIFF 2020-09-03 09:25:00 Lilly Barba [facility] Encounters Start End Encounter Admission Attending Care Care Encounter Source Date/Time Date/Time Type Type Clinicians Facility Department ID 2022-02-13 2022-02-13 Outpatient SARA WILKES [id number] Sara 00:00:00 00:00:00 AYAH Seybol d 2022-01-25 2022-01-25 Outpatient SARA RUIZ [id number] Sara 09:35:00 09:35:00 Seybol d 2022-01-25 2022-01-25 Outpatient LAB45 SARA RUIZ [id number] Sara 09:20:00 09:20:00 Seybol d 2022-01-23 2022-01-23 Office NILSA Sanchez [id number] Sara 14:30:00 15:00:00 Visit [facility] [id number] Se ybold [id number] 2022-01-23 2022-01-23 Office NILSA Cortez [id number] Sara 09:45:00 10:00:00 Visit [facility] [id number] S eybold [id number] 2022-01-23 2022-01-23 Outpatient SARA WILKES [id number] Sara 08:00:00 08:00:00 AYAH Seybol d 2021-11-25 2021-11-25 Outpatient SARA GARCIA [id number] Sara 10:40:00 10:40:00 ALEJANDRO Seybo ld 2021-11-25 2021-11-25 Outpatient 39, HOLTER SARA RUIZ [id number] Sara 10:30:00 10:30:00 Seybol d 2021-11-09 2021-11-09 [facility] LUCY YUSUF [id number] Sara 10:30:00 10:30:00 [place] [id number] Se ybold [id number] 2021-11-09 2021-11-09 Outpatient SARA STACK [id number] Sara 00:00:00 00:00:00 DEMARCUS Seybol d 2021-11-06 2021-11-06 Outpatient SARA WILKES [id number] Sara 00:00:00 00:00:00 AYAH Seybol d 2021-10-30 2021-10-30 Outpatient SARA WILKES [id number] Sara 00:00:00 00:00:00 AYAH Seybol d 2021-10-28 2021-10-28 Outpatient JEANETTE GARCIA, SLE Surgery [id number] SLE 07:44:00 18:25:00 ALEJANDRO 2021-10-28 2021-10-28 Outpatient SARA PADGETT [id number] Sara 00:00:00 00:00:00 CHRISTIN Seybol d 2021-10-24 2021-10-24 Outpatient [facility] SARA RUIZ [id number] Sara 09:20:00 09:20:00 Seybol d 2021-10-24 2021-10-24 Outpatient [id number] SARA RUIZ [id number] Sara 09:20:00 09:20:00 Seybol d 2021-10-18 2021-10-18 Outpatient SARA RUIZ [id number] Sara 08:00:00 08:00:00 Seybol d 2021-10-18 2021-10-18 Outpatient LAB47 SARA RUIZ [id number] Sara 07:35:00 07:35:00 Seybol d 2021-10-17 2021-10-17 Outpatient SARA RUIZ [id number] Sara 00:00:00 00:00:00 Seybol d 2021-10-16 2021-10-16 Outpatient SARA GARCIA [id number] Sara 00:00:00 00:00:00 ALEJANDRO acevedo 2021-10-15 2021-10-15 Outpatient HUONG RUIZ [id number] Sara 00:00:00 00:00:00 MD GEOVANNY Seybol d 2021-10-11 2021-10-11 Outpatient SARA RUIZ [id number] Sara 14:00:00 14:00:00 Seybol d 2021-10-11 2021-10-11 Outpatient SARA RUIZ [id number] Sara 10:00:00 10:00:00 Seybol d 2021-10-11 2021-10-11 Outpatient HUONG SARA RUIZ [id number] Sara 00:00:00 00:00:00 MD GEOVANNY Seybol d 2021-10-09 2021-10-09 Outpatient LAB61 SARA RUIZ [id number] Sara 07:50:00 07:50:00 Seybol d 2021-09-30 2021-09-30 Outpatient 39, HOLTER SARA RUIZ [id number] Sara 11:00:00 11:00:00 Seybol d 2021-09-30 2021-09-30 Outpatient SARA GARCIA [id number] Sara 11:00:00 11:00:00 ALEJANDRO Payneo ld 2021-09-30 2021-09-30 Outpatient RADIOLOGY, SARA RUIZ [id number] Sara 00:00:00 00:00:00 DEPT Seybol d 2021-09-20 2021-09-20 Outpatient SARA SANCHES [id number] Sara 00:00:00 00:00:00 ATASU Seybol d 2021-08-21 2021-08-21 Outpatient SARA WILKES [id number] Sara 00:00:00 00:00:00 AYAH Seybol d 2021-08-03 2021-08-03 Outpatient SARA WILKES [id number] Sara 00:00:00 00:00:00 AYAH Seybol d 2021-07-30 2021-07-30 Outpatient SARA WILKES [id number] Sara 00:00:00 00:00:00 AYAH Seybol d 2021-07-02 2021-07-02 Outpatient COVID-PFIZE SARA RUIZ [id number] Sara 11:30:00 11:30:00 Piero QUARLES 2021-07-02 2021-07-02 Outpatient LAB59 SARA RUIZ [id number] Sara 09:20:00 09:20:00 Seybol d 2021-07-02 2021-07-02 Outpatient [id number] SARA RUIZ [id number] Sara 09:15:00 09:15:00 Seybol d 2021-07-02 2021-07-02 Office PARAMJIT Wilkes [id number] Sara 07:33:48 07:48:48 Visit Ayah [id number] Se ybold [id number] 2021-05-30 2021-05-30 Telemed[facility] PARAMJIT Wilkes [id number] Sara 14:13:45 14:23:16 ne Ayah 350.1.13.13 Se ybold 1.2.7.2.686 [id number] 2021-05-13 2021-05-13 Outpatient HUONG RUIZ [id number] Sara 00:00:00 00:00:00 MD Rashard SMALL 2020-09-03 2020-09-03 [facility] [id number] Univers 03:23:00 06:47:00 Lilly Fernandez 350.1.13.10 ity [facility] 4.2.7.2.686 [facility] [id number] [address] 2020-09-03 2020-09-03 Emergency [facility] [id number] Univers 03:23:00 03:23:00 LILLY itbeverly [facility] 2019-10-22 2019-10-23 Emergency E SONYA, [facility] [id number] [facility] 19:46:00 00:35:00 LISBETH Results Test Description Test Time Test Comments Results Result Comments Source POCT-GLUCOSE METER 2021-10-28 14:10:44 Test Item Value Reference Range Interpretation Comme nts POC-GLUCOSE METER (BEAKER) 84 mg/dL 70-110 : TESTED AT [address] (test code = 1538) [place] [address]: Armored Machine Operator/Techni keshia ID = [id number] for BARBARA MOORE [id number] 13:37:51 Test Item Value Reference Range Interpretation Comments ACTIVATED CLOTTING TIME 249 sec : 74 -137 seconds, (BEAKER) (test code = Baseli ne: TESTED AT 441) [facility] [address] [facility], [facility] 30: Armored Machine Operator/Techni keshia ID = [id number] for Do geo, Kumar [id number] 12:56:14 Test Item Value Reference Range Interpretation Comments ACTIVATED CLOTTING TIME 279 sec : 74 -137 seconds, (BEAKER) (test code = Baseli ne: TESTED AT 441) [facility] [address] [facility], [facility] 30: Armored Machine Operator/Techni keshia ID = [id number] for Do geo, Kumar URINALYSIS NONAUTO W/O [id number] 14:45:00 Test Item Value Reference Range Interpretation Comments UD KETONES (test code neg 5-160 = 150655) UD GLUCOSE (test code neg 100-2000 = 583602) UD PROTEIN (test code neg Trace - 2000 mg/dL = 462739) UD LEUKOCYTES (test neg Trace - Large @ 2 code = 749471) min. UD NITRITE (test code neg Neg. - Pos. @ 60 = 009264) sec. UD UROBILINOGEN (test 0.2 mg/dL 0.2-8 code = 895244) UD PH (test code = See_Comment [Automat ed message] 707149) The system whic h generated this result transmit natalie reference range : 5.0 - 8.5 @ 60 sec. . The reference range was not used to interpret this result as normal/abnormal . UD BLOOD (test code = neg Neg. - Large @ 60 146231) sec. UD SPECIFIC GRAVITY See_Comment [Automa ntaalie message] (test code = 925467) The sys tem which generated this result transmit natalie reference range : 1.000 - 1.030 @ 45 sec.. The refer ence range was not u sed to interpret th is result as normal/abnormal . UD BILIRUBIN (test neg Neg. - Large @ 45 code = 976482) sec. Sara [id number] 10:20:00 Test Item Value Reference Range Interpretation Comments APPEARANCE (test code = Clear Clear 2311727370) COLOR (test code = Yellow Yellow 5989821940) PH (test code = 4.8-8.0 7326370471) SP GRAVITY (test code = 1.003-1.030 7953910510) GLU U QUAL (test code = Normal Normal 0460123590) BLOOD (test code = Negative Negative INTERFERE NCE FROM 1939660398) ASCORBIC ACID M AY CAUSE FALSE NEG ATIVE RESULT KETONES (test code = 5 mg/dL Negative A 8404219348) PROTEIN (test code = Negative Negative 2887-8) UROBILIN (test code = Normal Normal 9312377575) BILIRUBIN (test code = Negative Negative 0338204906) NITRITE (test code = Negative Negative 5664832654) LEUK HUGO (test code = Negative Negative 5971725816) RBC/HPF (test code = See_Comment [Autom ated message] 5319272314) The system [employer] generated this result transmitted ref erence range: 0 - 3 HP F. The reference range was not used to int erpret this result as normal/abnormal . WBC/HPF (test code = See_Comment [Autom ated message] 7750034303) The system [employer] generated this result transmitted ref erence range: 0 - 5 HP F. The reference range was not used to int erpret this result as normal/abnormal . BACTERIA (test code = Few Negative A 8120866227) MUCOUS (test code = Slight Negative LPF A 9139173850) Lab Interpretation (test Abnormal code = 18573-7) [id number] 09:57:00 Test Item Value Reference Range Interpretation Comments TROPONIN I (test <0.012 See_Comment [Automated code = 6295074696) message] The system which generated this result [...] ? Lab Interpretation Normal (test code = 92199-1) [facility] (NA, K, CL, CO2, GLUCOSE, BUN, CREATININE, CA)2020-09-03 09:45:00 Test Item Value Reference Range Interpretation Comments NA (test code = 141 mmol/L 135-145 7463970764) K (test code = 4.5 mmol/L 3.5-5 7555351791) CL (test code = 112 mmol/L 98-108 H 4827479711) CO2 TOTAL (test code = 18 mmol/L 23-31 L 9207128312) AGAP (test code = 2-16 5438780813) BUN (test code = 29 mg/dL 7-23 H 0005956807) GLUCOSE (test code = 167 mg/dL 70-110 H 3484080017) CREATININE (test code = 1.10 mg/dL 0.6-1.25 7199193139) CALCIUM (test code = 8.8 mg/dL 8.6-10.6 2631070614) eGFR Calculation mL/min/1.73m2 (Non-) (test code = 7501425908) eGFR Calculation mL/min/1.73m2 () (test code = 1238723041) BE (test code = BE) Association of [...] tests). Lab Interpretation Abnormal (test code = 13953-6) [facility] (ALB, T.PRO, BILI T, BU/BC, ALT, AST, ALK PHOS)2020-09-03 09:45:00 Test Item Value Reference Range Interpretation Comments TOTAL BILI (test code = 9319795012) 1.0 mg/dL 0.1-1.1 BILI UNCON (test code = 9193243920) 0.8 mg/dL 0.1-1.1 BILI CONJ (test code = 0780969169) 0.0 mg/dL 0-0.3 T PROTEIN (test code = 8081959219) 7.3 g/dL 6.3-8.2 ALBUMIN (test code = 7863868082) 4.2 g/dL 3.5-5 ALK PHOS (test code = 2472571355) 82 U/L 34-122 ALTv (test code = 1742-6) 29 U/L 5-50 AST(SGOT) (test code = 0191738200) 45 U/L 13-40 H Lab Interpretation (test code = Abnormal 29985-6) [facility] [id number] 09:45:00 Test Item Value Reference Range Interpretation Comments LIPASE (test code = 4916016081) 14 U/L 0-220 Lab Interpretation (test code = Normal 00384-4) [facility] with [id number] 09:32:00 Test Item Value Reference Range Interpretation Comments WBC (test code = See_Comment [Automated 6690-2) message] The sy stem which generated this result transmitted reference range : 4.20 - 10.70 10*3/?L. The reference range was not used to interpret this result as normal/abnormal . RBC (test code = See_Comment [Automated 789-8) message] The sy stem which generated this [...] RDW-SD (test code = 50.6 fL 38.5-51.6 37931-4) RDW-CV (test code = 14.4 % 12.1-15.4 788-0) PLT (test code = See_Comment [Automated 777-3) message] The sy stem which generated this result transmitted reference range : 150 - 328 10*3/ ?L. The reference r tran was not used to interpret this result as normal/abnormal . MPV (test code = 9.6 fL 9.8-13 L 38636-9) NRBC/100 WBC (test See_Comment [Automat ed code = 1698771309) message] The system which generated this result transmitted reference range : 0.0 - 10.0 /100 WBCs. The refer ence range was not u sed to interpret th is result as normal/abnormal . NRBC x10^3 (test code <0.01 See_Comment [Auto mated = 2992901699) message] The s ystem which generated this result transmitted reference range : 10*3/?L. The reference range was not used to interpret this result as normal/abnormal . GRAN MAT (NEUT) % 84.4 % (test code = 770-8) IMM GRAN % (test code 0.50 % = 0555246551) LYMPH % (test code = 9.9 % 736-9) MONO % (test code = 4.4 % 5905-5) EOS % (test code = 0.6 % 713-8) BASO % (test code = 0.2 % 706-2) GRAN MAT x10^3(ANC) 7.36 10*3/uL 1.99-6.95 H (test code = 1404212866) IMM GRAN x10^3 (test 0.04 10*3/uL 0-0.06 code = 6742474703) LYMPH x10^3 (test code 0.86 10*3/uL 1.09-3.23 L = 731-0) MONO x10^3 (test code 0.38 10*3/uL 0.36-1.02 = 742-7) EOS x10^3 (test code = 0.05 10*3/uL 0.06-0.53 L 711-2) BASO x10^3 (test code <0.03 0.01-0.09 = 704-7) Lab Interpretation Abnormal (test code = 70163-0) [facility]"
--- NOTE | 2022-02-13 18:45 | EDPHYS ---
Physician Documentation [facility] Name: Cristóbal Palm Age: 72 yrs Sex: Male : 1950 Arrival Date: 02/13/2022 Time: 18:04 Bed 6 Private MD: ED Physician Stephan Mitchell HPI: 02/13 18:32 This 72 yrs old Male presents to ER via Ambulatory with complaints of Cough, Runny Nose.cp 18:32 The patient or guardian reports cough, that is intermittent, with productive sputum, cp nasal drainage, sneezing. Onset: The symptoms/episode began/occurred 3 day(s) ago. Severity of symptoms: in the emergency department the symptoms are unchanged, despite home interventions. Associated signs and symptoms: Pertinent positives: rhinorrhea, Pertinent negatives: diarrhea, ear ache, fever, sore throat, vomiting. Patient reports symptoms started 3 days ago and PCP prescribes steroids that help. Patient requesting oral steroids. Refuses chest xray and testing for COVID and/or influenza. Historical: - Allergies: 18:18 No Known Allergies; ss - PMHx: 18:18 High Cholesterol; Hypertension; Prostate Cancer; ss - Immunization history:: Adult Immunizations up to date, Client reports receiving the 2nd dose of the Covid vaccine. - Social history:: Smoking status: Patient denies any tobacco usage or history of. ROS: 18:34 Constitutional: Negative for body aches, chills, fever, poor PO intake. cp 18:34 ENT: Negative for drainage from ear(s), ear pain, sore throat, difficulty swallowing, difficulty handling secretions. 18:34 Respiratory: Positive for cough, Negative for shortness of breath, wheezing. 18:34 Abdomen/GI: Negative for abdominal pain, nausea, vomiting, and diarrhea. 18:34 Neuro: Negative for altered mental status, headache, weakness. 18:34 All other systems are negative. Exam: 18:37 Constitutional: The patient appears in no acute distress, alert, awake, cp non-diaphoretic, non-toxic, well developed, well nourished. 18:37 Head/Face: Normocephalic, atraumatic. cp 18:37 Eyes: Periorbital structures: appear normal, Conjunctiva: normal, no exudate, no injection, Sclera: no appreciated abnormality, Lids and lashes: appear normal, bilaterally. 18:37 ENT: External ear(s): are unremarkable, Nose: is normal, Mouth: Lips: moist, Oral mucosa: pink and intact, moist, Posterior pharynx: Airway: no evidence of obstruction, patent. 18:37 Neck: ROM/movement: is normal, is supple, without pain, no range of motions limitations. 18:37 Chest/axilla: Inspection: normal. 18:37 Cardiovascular: Rate: normal. 18:37 Respiratory: the patient does not display signs of respiratory distress, Respirations: normal, no use of accessory muscles, no retractions, labored breathing, is not present, Breath sounds: are clear throughout, no decreased breath sounds, no stridor, no wheezing. 18:37 Abdomen/GI: Exam negative for discomfort, distension, guarding, Inspection: abdomen appears normal. 18:37 Skin: cellulitis, is not appreciated, no rash present. Vital Signs: 18:14 BP 132 / 89; Pulse 72; Resp 18; Temp 98.2(O); Pulse Ox 98% on R/A; Weight 95.25 kg; ss Height 5 ft. 6 in. (167.64 cm); Pain 0/10; 18:14 Body Mass Index 33.89 (95.25 kg, 167.64 cm) ss MDM: 18:07 Patient medically screened. cp 18:45 Data reviewed: vital signs, nurses notes. cp 18:45 Differential Diagnosis: Bronchitis Influenza Pneumonia. Counseling: I had a detailed cp discussion with the patient and/or guardian regarding: the historical points, exam findings, and any diagnostic results supporting the discharge/admit diagnosis, the need for outpatient follow up, a family practitioner, to return to the emergency department if symptoms worsen or persist or if there are any questions or concerns that arise at home. Administered Medications: No medications were administered Disposition Summary: 02/13/22 18:45 Discharge Ordered Location: Home cp Problem: new cp Symptoms: are unchanged cp Condition: Stable cp Diagnosis - Cough cp Followup: cp - With: Private Physician - When: 2 - 3 days - Reason: Worsening of condition Discharge Instructions: - Discharge Summary Sheet cp - Cough, Adult cp Forms: - Medication Reconciliation Form cp - Thank You Letter cp - Antibiotic Education cp - Prescription Opioid Use cp Prescriptions: - Medrol (Michael) 4 mg Oral Tablets, Dose Pack - take 1 tablet by ORAL route as directed - follow package instructions; 1 cp packet; Refills: 0, Product Selection Permitted Addendum: 02/17/2022 19:14 Co-signature as Attending Physician, Stephan Mitchell MD I agree with the assessment and [facility] plan of care. Signatures: Stephan Mitchell MD MD [facility] Ilana Leary RN RN ss Farrukh Hale PA PA cp
--- NOTE | 2022-02-13 18:45 | ER ---
Nurse's Notes [facility] Name: Cristóbal Palm Age: 72 yrs Sex: Male : 1950 Arrival Date: 02/13/2022 Time: 18:04 Bed 6 Private MD: Diagnosis: Cough Presentation: 02/13 18:14 Chief complaint: Patient states: cough and runny nose x 3 days. Pt states he gets a URI ss twice a year and is wanting Prednisone prescription. Coronavirus screen: Client denies travel out of the [place] in the last 14 days. Client presents with at least one sign or symptom that may indicate coronavirus-19. Ebola Screen: Patient denies exposure to infectious person. Patient denies travel to an Ebola-affected area in the 21 days before illness onset. Resp Distress? No respiratory distress is noted at this time. Initial Sepsis Screen: Does the patient meet any 2 criteria? No. Patient's initial sepsis screen is negative. Does the patient have a suspected source of infection? No. Patient's initial sepsis screen is negative. Risk Assessment: Do you want to hurt yourself or someone else? Patient reports no desire to harm self or others. Onset of symptoms was February 10, 2021. 18:14 Method Of Arrival: Ambulatory ss 18:14 Acuity: LINDA 4 ss Historical: - Allergies: 18:18 No Known Allergies; ss - PMHx: 18:18 High Cholesterol; Hypertension; Prostate Cancer; ss - Immunization history:: Adult Immunizations up to date, Client reports receiving the 2nd dose of the Covid vaccine. - Social history:: Smoking status: Patient denies any tobacco usage or history of. Screenin:15 Abuse screen: Denies threats or abuse. Nutritional screening: No deficits noted. 6 Tuberculosis screening: No symptoms or risk factors identified. Fall Risk None identified. Assessment: 18:16 Respiratory: [facility] 18:16 General: Appears in no apparent distress. Behavior is calm, cooperative. Pain: Denies [facility] pain. Cardiovascular: No deficits noted. Capillary refill < 3 seconds JVD is absent Patient's skin is warm and dry. Respiratory: Reports cough that is non-productive, Breath sounds are clear. Vital Signs: 18:14 BP 132 / 89; Pulse 72; Resp 18; Temp 98.2(O); Pulse Ox 98% on R/A; Weight 95.25 kg; ss Height 5 ft. 6 in. (167.64 cm); Pain 0/10; 18:14 Body Mass Index 33.89 (95.25 kg, 167.64 cm) ED Course: 18:04 Patient arrived in ED. mr 18:05 Farrukh Hale PA is PHCP. cp 18:06 Stephan Mitchell MD is Attending Physician. cp 18:15 Qian Coe, RN is Primary Nurse. [facility] 18:15 Placed in gown. Bed in low position. Call light in reach. Side rails up X 1. [facility] 18:18 Triage completed. 18:18 Arm band placed on right wrist. Administered Medications: No medications were administered Medication: 18:29 VIS not applicable for this client. [facility] Outcome: 18:45 Discharge ordered by . cp 18:56 Patient left the ED. [email or web address] Signatures: Prema Clemens mr Ilana Leary, RN RN Farrukh Hale PA PA cp Jackson, Kandis kj1 Qian Coe, RN RN [facility]
[2022-02-13 19:15] VITALS: BP 132/89; TEMP 98.2; O2SAT 98
== END 2022-02-13 18:56 | disposition home or self-care (01) ==
LOC: ER 18:00
DX: R05.9 Cough, unspecified (principal); I10 Essential (primary) hypertension; Z85.46 Personal history of malignant neoplasm of prostate
CPT/HCPCS: 99281

== ENCOUNTER 2022-02-19 17:38 | Emergency (ER) | payer OTHER ==
--- NOTE | 2022-02-19 19:31 | RAD REPORT ---
EXAM DESCRIPTION: Satya Torres (2 Views)02/19/2022 7:22 pm CLINICAL HISTORY: Cough COMPARISON: 2017 FINDINGS: The lungs appear clear of acute infiltrate. The heart is normal size Small hiatal hernia IMPRESSION: No acute abnormalities displayed
--- NOTE | 2022-02-19 19:58 | ER ---
Nurse's Notes [facility] Name: Cristóbal Palm Age: 72 yrs Sex: Male : 1950 Arrival Date: 02/19/2022 Time: 17:41 Bed 9 Private MD: Diagnosis: Coronavirus infection, unspecified Presentation: 02/19 18:29 Chief complaint: Patient states: he tested positive for COVID this afternoon, and has a ap3 productive cough. patient states he has been taking dayquil and nyquil to no relief. Coronavirus screen: Client reports previous positive COVID test result. Ebola Screen: No symptoms or risks identified at this time. Initial Sepsis Screen: Does the patient meet any 2 criteria? No. Patient's initial sepsis screen is negative. Does the patient have a suspected source of infection? No. Patient's initial sepsis screen is negative. Risk Assessment: Do you want to hurt yourself or someone else? Patient reports no desire to harm self or others. Onset of symptoms was February 13, 2022. 18:29 Method Of Arrival: Ambulatory ap3 18:29 Acuity: LINDA 4 ap3 Triage Assessment: 18:31 General: Appears in no apparent distress. uncomfortable, Behavior is calm, cooperative, ap3 appropriate for age. Pain: Denies pain. Neuro: Level of Consciousness is awake, alert, obeys commands, Oriented to person, place, time, situation, Appropriate for age. Cardiovascular: Patient's skin is warm and dry. Respiratory: Reports cough that is productive, Airway is patent Respiratory effort is even, unlabored, Respiratory pattern is regular, symmetrical. Historical: - Allergies: 18:31 No Known Allergies; ap3 - PMHx: 18:31 High Cholesterol; Hypertension; Prostate Cancer; ap3 - Immunization history:: Client reports receiving the 2nd dose of the Covid vaccine. - Social history:: Smoking status: Patient denies any tobacco usage or history of. Screenin:32 Abuse screen: Denies threats or abuse. Nutritional screening: No deficits noted. ap3 Tuberculosis screening: No symptoms or risk factors identified. Fall Risk None identified. Assessment: 18:48 Reassessment: No changes from previously documented assessment. General: Appears in no bh1 apparent distress. Behavior is calm, cooperative, appropriate for age. Cardiovascular: No deficits noted. Respiratory: Reports cough that is pain with cough Airway is patent Trachea midline Respiratory effort is even, Respiratory pattern is regular, Sputum is thin, Breath sounds are clear bilaterally. Vital Signs: 18:29 BP 112 / 62; Pulse 75; Resp 18; Temp 97.9; Pulse Ox 98% ; Weight 95.25 kg; Height 5 ft. ap3 6 in. (167.64 cm); 19:29 BP 120 / 65; Pulse 76; Resp 18; Temp 97.7(O); Pulse Ox 99% on R/A; bh1 20:14 BP 122 / 65; Pulse 68; Resp 18; Temp 98.6(O); Pulse Ox 100% on R/A; bh1 18:29 Body Mass Index 33.89 (95.25 kg, 167.64 cm) ap3 ED Course: 17:41 Patient arrived in ED. ja2 18:31 Triage completed. ap3 18:32 Arm band placed on right wrist. ap3 18:40 Megan Trujillo FNP-C is [facility]. kb 18:40 Farrukh Cunningham MD is Attending Physician. kb 18:48 Alyssa Bobby, RN is Primary Nurse. bh1 18:48 No apparent distress. Awaiting for x-ray. bh1 18:48 Patient has correct armband on for positive identification. bh1 18:48 No provider procedures requiring assistance completed. Patient did not have IV access bh1 during this emergency room visit. 19:23 Chest Pa And Lat (2 Views) XRAY In Process Unspecified. EDMS 19:29 No apparent distress. Resting quietly. Awaiting radiology results. bh1 Administered Medications: No medications were administered Medication: 18:48 VIS not applicable for this client. 1 Outcome: 19:57 Discharge ordered by . kb 20:30 Discharged to home ambulatory. bh1 20:30 Condition: good 20:30 Discharge instructions given to patient, Instructed on discharge instructions, follow up and referral plans. medication usage, Demonstrated understanding of instructions, follow-up care, medications, Prescriptions given X 1. 20:30 Patient left the ED. 1 Signatures: Dispatcher [employer] EDMS Megan Trujillo FNP-C FNP-Ckb Prokisch, Amanda, RN RN ap3 Michelle Turner ja2 Alyssa Bobby RN RN [facility]
--- NOTE | 2022-02-19 19:58 | EDPHYS ---
Physician Documentation [facility] Name: Cristóbal Palm Age: 72 yrs Sex: Male : 1950 Arrival Date: 02/19/2022 Time: 17:41 Bed 9 Private MD: ED Physician Farrukh Cunningham HPI: 02/19 20:21 This 72 yrs old Male presents to ER via Ambulatory with complaints of Cough, Covid+. kb 20:21 The patient or guardian reports cough, that is intermittent, described as moderate. kb Onset: The symptoms/episode began/occurred today. Severity of symptoms: At their worst the symptoms were mild, moderate, in the emergency department the symptoms are unchanged. Modifying factors: The symptoms are alleviated by nothing, the symptoms are aggravated by nothing. Associated signs and symptoms: The patient has no apparent associated signs or symptoms. The patient has not experienced similar symptoms in the past. The patient has not recently seen a physician. Pt reports he has had upper respiratory symptoms for a week, tested positive for covid today via home test. Came in due to cough, has history of asthma so he was concerned. . Historical: - Allergies: 18:31 No Known Allergies; ap3 - PMHx: 18:31 High Cholesterol; Hypertension; Prostate Cancer; ap3 - Immunization history:: Client reports receiving the 2nd dose of the Covid vaccine. - Social history:: Smoking status: Patient denies any tobacco usage or history of. ROS: 20:21 Constitutional: Negative for fever, chills, and weight loss. kb 20:21 Respiratory: Positive for cough, Negative for dyspnea on exertion, hemoptysis, orthopnea, pleurisy, shortness of breath, sputum production, wheezing. 20:21 All other systems are negative. Exam: 20:21 Constitutional: This is a well developed, well nourished patient who is awake, alert, kb and in no acute distress. Head/Face: Normocephalic, atraumatic. ENT: Moist Mucous membranes Cardiovascular: Regular rate and rhythm with a normal S1 and S2. No gallops, murmurs, or rubs. No pulse deficits. Respiratory: Respirations even and unlabored. No increased work of breathing. Talking in full sentences Skin: Warm, dry with normal turgor. Normal color. MS/ Extremity: Pulses equal, no cyanosis. Neurovascular intact. Full, normal range of motion. Neuro: Awake and alert, GCS 15, oriented to person, place, time, and situation. Moves all extremities. Normal gait. Psych: Awake, alert, with orientation to person, place and time. Behavior, mood, and affect are within normal limits. Vital Signs: 18:29 BP 112 / 62; Pulse 75; Resp 18; Temp 97.9; Pulse Ox 98% ; Weight 95.25 kg; Height 5 ft. ap3 6 in. (167.64 cm); 19:29 BP 120 / 65; Pulse 76; Resp 18; Temp 97.7(O); Pulse Ox 99% on R/A; bh1 20:14 BP 122 / 65; Pulse 68; Resp 18; Temp 98.6(O); Pulse Ox 100% on R/A; bh1 18:29 Body Mass Index 33.89 (95.25 kg, 167.64 cm) ap3 MDM: 18:44 Patient medically screened. kb 19:56 Data reviewed: vital signs, nurses notes. Data interpreted: Pulse oximetry: on room air kb is 99 %. Interpretation: normal. Counseling: I had a detailed discussion with the patient and/or guardian regarding: the historical points, exam findings, and any diagnostic results supporting the discharge/admit diagnosis, radiology results, the need for outpatient follow up, a family practitioner, to return to the emergency department if symptoms worsen or persist or if there are any questions or concerns that arise at home. 02/19 18:41 Order name: Chest Pa And Lat (2 Views) XRAY; Complete Time: 19:51 kb Administered Medications: No medications were administered Disposition Summary: 02/19/22 19:57 Discharge Ordered Location: Home kb Condition: Stable kb Diagnosis - Coronavirus infection, unspecified kb Followup: kb - With: Private Physician - When: 2 - 3 days - Reason: Recheck today's complaints, Continuance of care, Re-evaluation by your physician Followup: kb - With: Emergency Department - When: As needed - Reason: Worsening of condition Discharge Instructions: - Discharge Summary Sheet kb - Viral Respiratory Infection, [id number] kb - COVID-19 kb Forms: - Medication Reconciliation Form kb - Thank You Letter kb - Antibiotic Education kb - Prescription Opioid Use kb Prescriptions: - Zithromax 500 mg Oral Tablet - take 1 tablet by ORAL route once daily for 5 days; 5 tablet; Refills: 0, kb Product Selection Permitted Signatures: Dispatcher [employer] Megan Koehler, JEFFERSON-C BELL CLERK-Chika Álvarez, RN RN ap3
[2022-02-19 20:57] VITALS: BP 122/65; TEMP 98.6; O2SAT 100
== END 2022-02-19 20:30 | disposition home or self-care (01) ==
LOC: ER 17:38
DX: U07.1 COVID-19 (principal); I10 Essential (primary) hypertension; Z85.46 Personal history of malignant neoplasm of prostate
CPT/HCPCS: 71046

== ENCOUNTER 2023-01-14 20:49 | Emergency (ER) | payer OTHER ==
--- OUTSIDE RECORDS SUMMARY | 2023-01-14 20:54 | XMS REPORT | Continuity of Care Document ---
:1950 Author Organization [facility] t Address [address] [place] [address] Care Team Providers Name Role Phone FARRUKH HERRERA Primary Care Physician Unavailable AYAH WILKES Attending Clinician Unavailable LAB59 Attending Clinician Unavailable BRYNN SANCHEZ Attending Clinician Unavailable ROMMEL WALKER Attending Clinician Unavailable RELL SHEARER Attending Clinician Unavailable SYEDA MARTINI Attending Clinician Unavailable SUNG HERNANDEZ Attending Clinician Unavailable MD BOAZ Attending Clinician Unavailable SINA LARES Attending Clinician Unavailable GUERITA STALEY Attending Clinician Unavailable LAB53 Attending Clinician Unavailable BELIA HAMMER Attending Clinician Unavailable LAB45 Attending Clinician Unavailable Brynn Mckeon Attending Clinician [phone] Alvino Cortez MD Attending Clinician ALEJANDRO GARCIA Attending Clinician Unavailable 39, HOLTER Attending Clinician Unavailable LUCY YUSUF Attending Clinician Unavailable DEMARCUS STAKC Attending Clinician Unavailable ALEJANDRO GARCIA Attending Clinician Unavailable CHRISTIN PADGETT Attending Clinician Unavailable SWAB, FBMDC COVID SELF Attending Clinician Unavailable [id number]-[id number] Attending Clinician Unavailable LAB47 Attending Clinician Unavailable LAB61 Attending Clinician Unavailable RADIOLOGY, DEPT Attending Clinician Unavailable PASCUAL SANCHES Attending Clinician Unavailable COVID-PFIZER PARAMJIT PEOPLES Attending Clinician Unavailable [id number] Attending Clinician Unavailable Ayah Wilkes MD Attending Clinician Lilly Barba DO Attending Clinician LILLY BARBA Attending Clinician Unavailable LISBETH HASSAN Attending Clinician Unavailable ALEJANDRO GARCIA Admitting Clinician Unavailable Payers Payer Name Policy Type Policy Number Effective Date Expiration Date S sacha [facility] [id number] 2022 00:00:00 [employer] [id number] 2020 ADV 00:00:00 [facility] [id number] 2012 O 00:00:00 Problems Condition Condition Condition Status Onset Resolution Last Treating Co mments Source Name Details Category Date Date Treatment Clinician Date Coronary Coronary Disease Active Last [facility] y artery artery 3-17 Assessmen Seybold disease disease 00:00: t & Plan: - involving involving 00 Formattin E xterna [place] of this l coronary coronary note artery of artery of might be [place] different heart with heart with from the angina angina original. pectoris pectoris Controlle d Continue good bp control.C ontinue medicatio ns. Followed by cardiolog y SCA SCA Disease Active Sara 10/28/21: 10/28/: -17 Seybold IFR+ IFR+ 00:00: - (0.85) LAD (0.85) LAD 00 Ex terna lesion s/p lesion s/p l PCI with PCI with PEG PEG (Synergy (Synergy XD XD 3.5x38mm), 3.5x38mm), moderate moderate Lcx dz Lcx dz (IFR 0.95) (IFR 0.95) Coronary [facility] Assessmen Seybold disease disease 00:00: t & Plan: - involving involving 00 Formattin E xterna [place] g of this l coronary coronary note artery of artery of might be [place] different heart with heart with from the angina angina original. pectoris pectoris Controlle d Continue good bp control.C ontinue medicatio ns. Followed by cardiolog y Chest pain Chest pain Disease [facility] Obesity Obesity Disease Active Jamey Ruiz (BMI (BMI 5-07 Assessmen Seybold 30.0-34.9) 30.0-34.9) 00:00: t & Plan: - 00 Formattin Externa g of this l note might be different from the original. Controlle d. 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 Controlle d Continue medicatio ns. Followed by cardiolog y Essential Essential Disease Active Jamey tan hypertensi hypertensi 4-09 Assessmen Seybold on, benign on, benign 00:00: t & Plan: - 00 Formattin Externa g of this l note might be different from the original. Controlle d Continue good bp control.C ontinue medicatio ns. Followed by cardiolog y Anemia Anemia Disease Active Jamey Ruiz 5-29 Assessmen Seybold 00:00: t & Plan: - 00 Formattin Externa g of this l note might be different from the original. Controlle d Continue to monitor CBC CKD CKD Disease Active Sara (chronic (chronic 5-11 Seybol d kidney kidney 00:00: - disease), disease), 00 Exte rna stage II stage II l Insomnia Insomnia Disease Active Last Milose y 6-05 Assessmen Seybold 00:00: t & Plan: - 00 Formattin Externa g of this l note might be different from the original. Controlle d Continue medicatio n.Do not drive, drink alcohol, or operate heavy machinery while using this medicatio n. History of History of Disease Active 2014-08 K elsey prostate prostate 0-22 Seybol d cancer cancer 00:00: - 00 Externa l History of History of Disease Active Overview : Sara basal cell basal cell 1- Formattin Seybold cancer cancer 00:00: g of this - note Externa might be l different from the original. R malar cheek Rotator Rotator Disease Active [facility] cuff [facility] (capsule[facility] (capsule) 00:00: Medi paulette sprain sprain 00 Center Rotator Rotator Disease Active [facility] cuff tear, cuff tear, 8-13 Jeanine kes right right 00:00: Medical 00 Center Mixed Mixed Disease Active Jamey Ruiz hyperlipid hyperlipid 2 Assessmen Seybcesar emia emia 00:00: t & Plan: - 00 Formattin Externa g of this l note might be different from the original. Controlle d.Continu e statin.Ch david lipid panel Hypertensi Hypertensi Disease Active Last K elsey ve heart ve heart 2- Assessmen Piero bold and renal and renal 00:00: t & Plan: disease disease 00 Formattin with heart with heart g of this failure failure note might be different from the original. Controlle d. Continue good bp control.C ontinue to monitor creatinin e. Followed by cardiolog y GERD GERD Disease Active Sara (gastroeso (gastroeso 2- Se ybold phageal phageal 00:00: - reflux reflux 00 Externa disease) disease) l Hearing Hearing Disease Active Sara loss loss 09-30 Seybold 00:00: - 00 Externa l Allergic Allergic Disease Active Overview: Ezequiel miller rhinitis, rhinitis, 2 Formattin S eybold cause cause 00:00: g of this - unspecifie unspecifie 00 note Ex terna d d might be l different from the original. ICD-10Las t Assessmen t & Plan: Formattin g of this note might be different from the original. Controlle d Continue medicatio n Hypertensi Hypertensi Disease Active Last Priyanka dove ve heart ve heart 2-07 Assessmen Piero child and renal and renal 00:00: t & Plan: - disease disease 00 Formattin Exter na with with g of this l congestive congestive note heart heart might be failure failure different from the original. Controlalexis d. Continue good bp control.C ontinue to monitor creatinin e. 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 Controlalexis d Discussed diet and exercise. Check a1C History of History of Disease Active K derrell radiation radiation Seyb old therapy therapy - Externa l Hx of Hx of Disease Active Last Sara erectile erectile Assessmen Piero child dysfunctio dysfunctio t & Plan: - n n Formattin Externa g of this l note might be different from the original. Controlalexis butler Followed by urology Arthritis Arthritis Disease Active Overview: Sara Rivas g of this - note Externa might be l different from the original. multiple sites Allergies, Adverse Reactions, Alerts Allergy Allergy Status Severity Reaction(s) Onset Inactive Treating Comm ents Source Name Type Date Date Clinician NO KNOWN Drug Active Univers ALLERGIE Class it[facility] of [facility] NO KNOWN Allergy Active [facility] ALLERGIE S Social History Social Habit Start Date Stop Date Quantity Comments Source History SDOH Sara Thornton ld Alcohol Binge - External Gender identity Sara rahman - External Sexual orientation Sara Rivas - External Tobacco use and 2022-12-25 2022-12-25 Smokeless tobacco Ke angela Rivas exposure 00:00:00 00:00:00 non-user - External Alcohol Comment 2022-06-02 2022-06-02 social Sara Nielson ybcesar 00:00:00 00:00:00 - External Alcohol intake 2021-10-30 2021-10-30 Current drinker TONEY Suh 00:00:00 00:00:00 of [facility] (finding) Exposure to 2021-09-20 2021-10-20 Not sure Sara Nielsonybol carrie SARS-CoV-2 (event) 00:00:00 13:19:00 History of Social 2020-08-04 2020-08-04 Sara Seybold function 00:00:00 00:00:00 - External History [facility] 2020-02-07 2020-02-07 4 Sara acevedo Alcohol Frequency 00:00:00 00:00:00 - Exter nal History [facility] 2020-02-07 2020-02-07 1 Sara Payneo curtis Alcohol Std Drinks 00:00:00 00:00:00 - Exte rnal Sex Ass[birth year] [facility] 00:00:00 00:00:00 [facility] Smoking Status Start Date Stop Date Source Never smoked tobacco [facility] Medications Ordered Filled Start Stop Current Ordering Indication Dosage Frequency Signature Comments Components Source Medication Medication Date Date Medication? Clinician (SIG) Name Name Multiple Yes Take by Sara Vitamins-Mi 5-04 mouth Seybold nerals 09:59: - (MULTIVITAM 03 Externa IN OR) l Aspirin 81 Yes 81mg Take 1 Kelse y MG oral 5-04 tablet (81 Seybol d Chewable 09:59: mg total) - Tablet 03 by mouth Externa daily l Atorvastati Yes [id number] TAKE 1 Sara n Calcium 5-01 TABLET(40 Seybo ld 40 MG oral 00:00: MG) BY - Tablet 00 MOUTH Externa DAILY FOR l CHOLESTERO L Carvedilol Yes [id number] 6.25mg Take 1 Sara 6.25 MG 5-01 tablet Seybold oral Tablet 00:00: (6.25 mg - 00 total) by Externa mouth 2 l times daily Lisinopril Yes [id number] 5mg Take 1 K elsey 5 MG oral 5-01 tablet (5 Seybo ld Tablet 00:00: mg total) - 00 by mouth Externa daily l Tamsulosin 0 Yes [id number] .4mg Take 1 Sara HCl 0.4 MG 5-01 capsule Seybol d oral 00:00: (0.4 mg - Capsule 00 total) by Externa mouth l daily Trazodone 2022-0 Yes [id number] 100mg Take 2 Sara HCl 50 MG 5-01 tablets Seybold oral Tablet 00:00: (100 mg - 00 total) by Externa mouth l every day at 5:00 PM Oxybutynin 2022-0 Yes [id number] 10mg Take 1 Sara Chloride 10 5-01 tablet (10 Se ybold MG oral 00:00: mg total) - TABLET SR 00 by mouth Assembly Member a 24 HR daily l Metformin Yes [id number] 500mg Take 1 Sara HCl ER 500 5-01 tablet Seybold MG oral 00:00: (500 mg - TABLET SR 00 total) by Exter na 24 HR mouth l daily (with breakfast) Methylpredn 2021-08- No [id number] 80mg Sara isolone 09-25 Seybold Acetate 19:45: 19:42 - (Depo-Medro 00 :00 Externa l) [40 l mg/mL] - Physician Administere d (J1030) Methylpredn 2021-08- No [id number] 80mg 80 mg, Sara isolone -07-25 Physician Seybol d Acetate 19:45: 19:42 Administer - (Depo-Medro 00 :00 ed, ONCE, Ext juan l) [40 1 dose, On l mg/mL] - Fri Physician 07/25/22 at Administere 1345 d (J1030) Multiple 2021-08 Yes Take by Sara Vitamins-Mi - mouth Seybold nerals 13:30: - (MULTIVITAM 57 Externa IN OR) l Aspirin 81 2021-08 Yes 81mg Take 81 mg K elsey MG oral 09-25 by mouth Seybold Chewable 13:30: daily - Tablet 57 Externa l Multiple 2021-08 Yes Take by Sraa Vitamins-Mi 2- mouth Seybold nerals 09:49: - (MULTIVITAM 33 Externa IN OR) l Aspirin 81 2021-08 Yes 81mg Take 81 mg K elsey MG oral 2-01 by mouth Seybold Chewable 09:49: daily - Tablet 33 Externa l Oxybutynin 2021-08 Yes [id number] TAKE 1 Sara Chloride 10 1-29 TABLET BY Sey bold MG oral 00:00: MOUTH - TABLET SR 00 EVERY DAY Exter na 24 HR l Oxybutynin 2021-08 Yes [id number] TAKE 1 Sara Chloride 10 1-29 TABLET BY Sey bold MG oral 00:00: MOUTH - TABLET SR 00 EVERY DAY Exter na 24 HR l Carvedilol 2021-08 Yes [id number] TAKE 1 K elsey 6.25 MG 1-28 TABLET BY Seybold oral Tablet 00:00: MOUTH 2 - 00 TIMES Externa DAILY. l Atorvastati 2021-08 Yes [id number] TAKE 1 Sara n Calcium 1-28 TABLET(40 Seybo ld 40 MG oral 00:00: MG) BY - Tablet 00 MOUTH Externa DAILY FOR l CHOLESTERO L Carvedilol 2021-08 Yes [id number] TAKE 1 K elsey 6.25 MG 1-28 TABLET BY Seybold oral Tablet 00:00: MOUTH 2 - 00 TIMES Externa DAILY. l Atorvastati 2021-08 Yes [id number] TAKE 1 Sara n Calcium 1-28 TABLET(40 Seybo ld 40 MG oral 00:00: MG) BY - Tablet 00 MOUTH Externa DAILY FOR l CHOLESTERO L Omeprazole 2021-08 Yes Take 1 Kelse y 20 MG oral 1-17 tablet (20 Sey bold Delayed 00:00: mg total) - Release 00 by mouth Externa Capsule in the l morning and 1 tablet (20 mg total) in the evening. Take before meals. Omeprazole 2021-08 Yes Take 1 Kelse y 20 MG oral 1-17 tablet (20 Sey bold Delayed 00:00: mg total) - Release 00 by mouth Externa Capsule in the l morning and 1 tablet (20 mg total) in the evening. Take before meals. Omeprazole 2021-08 Yes Take 1 Kelse y 20 MG oral 1-17 tablet (20 Sey bold Delayed 00:00: mg total) - Release 00 by mouth Externa Capsule in the l morning and 1 tablet (20 mg total) in the evening. Take before meals. Sucralfate 2021-08- No 1g Take 10 mL Sara (Carafate) -17 - (1 g Seybold 1 GM/10ML 00:00: 05:59 total) by - oral 00 :00 mouth 4 Externa Suspension times l daily for 14 days Tamsulosin 2021-08 Yes [id number] TAKE 1 Sara HCl 0.4 MG 1-01 CAPSULE BY Sey bold oral 00:00: MOUTH - Capsule 00 EVERY DAY Externa l Lisinopril 2021-08 Yes [id number] TAKE 1 K elsey 5 MG oral 1-01 TABLET BY Seybo ld Tablet 00:00: MOUTH - 00 EVERY DAY Externa l Tamsulosin 2021-08 Yes [id number] TAKE 1 Sara HCl 0.4 MG 1-01 CAPSULE BY Sey bold oral 00:00: MOUTH - Capsule 00 EVERY DAY Externa l Lisinopril 2021-08 Yes [id number] TAKE 1 K elsey 5 MG oral 1-01 TABLET BY Seybo ld Tablet 00:00: MOUTH - 00 EVERY DAY Externa l Multiple Yes Take by Sara Vitamins-Mi 9-27 mouth Seybold nerals 08:40: - (MULTIVITAM 41 Externa IN OR) l Omeprazole 0 Yes 20mg Take 20 mg K elsey 20 MG oral 9-27 by mouth Seybo ld Tablet 08:40: daily - Delayed 41 Externa Response l Metformin 0 Yes [id number] TAKE 1 K elsey HCl ER 500 9-19 TABLET BY Seyb old MG oral 00:00: MOUTH - TABLET SR 00 EVERY DAY Exter na 24 HR WITH l BREAKFAST Metformin 0 Yes [id number] TAKE 1 K elsey HCl ER 500 9-19 TABLET BY Seyb old MG oral 00:00: MOUTH - TABLET SR 00 EVERY DAY Exter na 24 HR WITH l BREAKFAST Metformin 0 Yes [id number] TAKE 1 K elsey HCl ER 500 9-19 TABLET BY Seyb old MG oral 00:00: MOUTH - TABLET SR 00 EVERY DAY Exter na 24 HR WITH l BREAKFAST Trazodone 0 Yes [id number] 100mg TAKE 2 Sara HCl 50 MG 9-09 TABLETS Seybold oral Tablet 00:00: (100 MG - 00 TOTAL) BY Externa MOUTH l EVERY DAY AT 5:00 PM Carvedilol 2021-0 Yes [id number] 6.25mg Take 1 Sara 6.25 MG 9-09 tablet Seybold oral Tablet 00:00: (6.25 mg - 00 total) by Externa mouth 2 l times daily Trazodone 2021-0 Yes [id number] 100mg TAKE 2 Sara HCl 50 MG 9-09 TABLETS Seybold oral Tablet 00:00: (100 MG - 00 TOTAL) BY Externa MOUTH l EVERY DAY AT 5:00 PM Trazodone 2021-0 Yes [id number] 100mg TAKE 2 Sara HCl 50 MG 9-09 TABLETS Seybold oral Tablet 00:00: (100 MG - 00 TOTAL) BY Externa MOUTH l EVERY DAY AT 5:00 PM Oxybutynin 2021-0 Yes [id number] TAKE 1 Sara Chloride 10 8-31 TABLET BY Sey bold MG oral 00:00: MOUTH - TABLET SR 00 EVERY DAY Exter na 24 HR l Lisinopril 0 Yes [id number] TAKE 1 K elsey 5 MG oral 8-16 TABLET BY Seybo ld Tablet 00:00: MOUTH - 00 EVERY DAY Externa l Tamsulosin 0 Yes [id number] TAKE 1 Sara HCl 0.4 MG 8-16 CAPSULE BY Sey bold oral 00:00: MOUTH - Capsule 00 EVERY DAY Externa l Multiple 2021-0 Yes Take by Sara Vitamins-Mi 6-02 mouth Seybold nerals 14:02: (MULTIVITAM 45 IN OR) Omeprazole 2021-0 Yes 20mg Take 20 mg K elsey 20 MG oral 6-02 by mouth Seybo ld Tablet 14:02: daily Delayed 45 Response Multiple 2021-0 Yes Take by Sara Vitamins-Mi 6-02 mouth Seybold nerals 09:34: (MULTIVITAM 54 IN OR) Omeprazole 2021-0 Yes 20mg Take 20 mg K elsey 20 MG oral 6-02 by mouth Seybo ld Tablet 09:34: daily Delayed 54 Response Trimix 2021-0 Yes [id number] .05mL Inject Milo sey Regular 6-02 0.05 mL in Seybol d Strength 00:00: the penis (Papaverine 00 as 30 directed mg/Phentola mine 1 mg/Prostagl andin 10 mcg per 1 mL) Trimix Yes [id number] .05mL Inject Milo sey Regular 6-02 0.05 mL in Seybol d Strength 00:00: the penis (Papaverine 00 as 30 directed mg/Phentola mine 1 mg/Prostagl andin 10 mcg per 1 mL) Atorvastati Yes [id number] TAKE 1 Sara n Calcium 6-02 TABLET(40 Seybo ld 40 MG oral 00:00: MG) BY Tablet 00 MOUTH DAILY FOR CHOLESTERO L Trazodone Yes [id number] 100mg Take 2 Sara HCl 50 MG 6-02 tablets Seybold oral Tablet 00:00: (100 mg 00 total) by mouth every day at 5:00 PM Trimix Yes [id number] .05mL Inject Milo sey Regular 6-02 0.05 mL in Seybol d Strength 00:00: the penis - (Papaverine 00 as Externa 30 directed l mg/Phentola mine 1 mg/Prostagl andin 10 mcg per 1 mL) Atorvastati Yes [id number] TAKE 1 Sara n Calcium 6-02 TABLET(40 Seybo ld 40 MG oral 00:00: MG) BY - Tablet 00 MOUTH Externa DAILY FOR l CHOLESTERO L Trimix Yes [id number] .05mL Inject Milo sey Regular 6-02 0.05 mL in Seybol d Strength 00:00: the penis - (Papaverine 00 as Externa 30 directed l mg/Phentola mine 1 mg/Prostagl andin 10 mcg per 1 mL) Trimix Yes [id number] .05mL Inject Milo sey Regular 6-02 0.05 mL in Seybol d Strength 00:00: the penis - (Papaverine 00 as Externa 30 directed l mg/Phentola mine 1 mg/Prostagl andin 10 mcg per 1 mL) Trimix Yes [id number] .05mL Inject Milo sey Regular 6-02 0.05 mL in Seybol d Strength 00:00: the penis - (Papaverine 00 as Externa 30 directed l mg/Phentola mine 1 mg/Prostagl andin 10 mcg per 1 mL) Trimix 2021-0 2021- No [id number] .05mL Inject Ke lsey Regular 01-23 06-02 0.05 mL in Seybo ld Strength 00:00: 00:00 the penis (Papaverine 00 :00 as 30 directed mg/Phentola mine 1 mg/Prostagl andin 10 mcg per 1 mL) Carvedilol 0 Yes [id number] TAKE 1 K elsey 6.25 MG 4-09 TABLET BY Seybold oral Tablet 00:00: MOUTH 00 TWICE DAILY Carvedilol 0 Yes [id number] TAKE 1 K elsey 6.25 MG 4-09 TABLET BY Seybold oral Tablet 00:00: MOUTH 00 TWICE DAILY Oxybutynin 2021-0 Yes [id number] TAKE 1 Sara Chloride 10 4-04 TABLET BY Sey bold MG oral 00:00: MOUTH TABLET SR 00 EVERY DAY 24 HR Tamsulosin 2021-0 Yes [id number] TAKE 1 Sara HCl 0.4 MG 4-04 CAPSULE BY Sey bold oral 00:00: MOUTH Capsule 00 EVERY DAY Benzonatate 2021-0 Yes [id number] 200mg Q.[id number] Take 1 Sara 200 MG oral 4-04 [id number] capsule Seybold Capsule 00:00: 3D (200 mg 00 total) by mouth 3 times daily as needed for cough Oxybutynin 2021-0 Yes [id number] TAKE 1 Sara Chloride 10 4-04 TABLET BY Sey bold MG oral 00:00: MOUTH TABLET SR 00 EVERY DAY 24 HR Tamsulosin 2021-0 Yes [id number] TAKE 1 Sara HCl 0.4 MG 4-04 CAPSULE BY Sey bold oral 00:00: MOUTH Capsule 00 EVERY DAY Benzonatate 2021-0 Yes [id number] 200mg Q.[id number] Take 1 Sara 200 MG oral 4-04 [id number] capsule Seybold Capsule 00:00: 3D (200 mg 00 total) by mouth 3 times daily as needed for cough Multiple 2021-0 Yes Take by Sara Vitamins-Mi 3-19 mouth Seybold nerals 08:55: (MULTIVITAM 38 IN OR) Omeprazole 2021-0 Yes 20mg Take 20 mg K elsey 20 MG oral 3-19 by mouth Seybo ld Tablet 08:55: daily Delayed 38 Response Benzonatate Yes [id number] 200mg Q.[id number] Take 1 Sara 200 MG oral 3-16 [id number] capsule Seybold Capsule 00:00: 3D (200 mg 00 total) by mouth 3 times daily as needed for cough Lisinopril 0 Yes [id number] TAKE 1 K elsey 5 MG oral 3-10 TABLET BY Seybo ld Tablet 00:00: MOUTH 00 EVERY DAY Lisinopril 2021-0 Yes [id number] TAKE 1 K elsey 5 MG oral 3-10 TABLET BY Seybo ld Tablet 00:00: MOUTH 00 EVERY DAY Lisinopril 2021-0 Yes [id number] TAKE 1 K elsey 5 MG oral 3-10 TABLET BY Seybo ld Tablet 00:00: MOUTH 00 EVERY DAY clopidogreL 0 2022- No 75mg QD Take [address] [facility] (PLAVIX) 75 3-08 03-08 tablet (75 L ukes mg tablet 00:00: 23:59 mg total) Me dical 00 :00 by mouth Center daily. aspirin 81 2022- No 81mg QD Take [address] [facility] MG EC 3-08 03-08 tablet (81 [facility] tablet 00:00: 23:59 mg total) Medic al 00 :00 by mouth Center daily. atorvastati Yes 40mg QD Take [address] [facility] n (LIPITOR) 3-07 by mouth Luke s 40 MG 20:18: daily. Medical tablet 24 Center multivitami Yes 1{tbl} QD Take [address] n 3-07 tablet by Angeli (MULTIVITAM 20:18: mouth Medic al IN) per 24 daily. Center tablet diphenhydra Yes 1{tbl} QD Take [address] mine-acetam 3-07 tablet by Latha es inophen 20:18: mouth Medical (TYLENOL 24 daily. Center PM) 25-500 mg Tab carvediloL Yes 6.25mg Take 6.[address] [facility] (COREG) 3-07 mg by [facility] 6.25 MG 20:18: mouth 2 Medical tablet 24 (two) Center times daily with breakfast and dinner. lisinopriL Yes 5mg QD Take [address] [facility] (PRINIVIL,Z 3-07 by mouth Luke s ESTRIL) 5 20:18: daily. Medica l MG tablet 24 Center metFORMIN 0 Yes 500mg Take [address] [facility] (GLUMETZA) 3-07 mg by [facility] 500 MG 20:18: mouth Medical (MOD) 24 hr 24 daily with Ce nter tablet breakfast. benzonatate Yes 200mg Take [address] (TESSALON) 3-07 mg by [facility] 200 MG 20:18: mouth 3 Medical capsule 24 (three) Center times daily as needed for Cough. loratadine Yes 10mg QD Take [address] (CLARITIN) 3-07 by mouth [facility] 10 mg 20:18: daily. Medical tablet 24 Center Clopidogrel Yes 75mg Take 75 mg Sara Bisulfate [...] Seybol d 75 MG oral 00:00: daily - Tablet 00 Externa l Clopidogrel 2021-0 Yes 75mg Take 75 mg Sara Bisulfate 3-07 by mouth Seybol d 75 MG oral 00:00: daily - Tablet 00 Externa l Clopidogrel 2021-0 Yes 75mg Take 75 mg Sara Bisulfate 3-07 by mouth Seybol d 75 MG oral 00:00: daily - Tablet 00 Externa l Clopidogrel 2021-0 Yes 75mg Take 1 Hien ey Bisulfate 3-07 tablet (75 Seyb old 75 MG oral 00:00: mg total) - Tablet 00 by mouth Externa daily l Atorvastati 2020-08 Yes [id number] TAKE 1 Sara n Calcium 2-30 TABLET(40 Seybo ld 40 MG oral 00:00: MG) BY Tablet 00 MOUTH DAILY FOR CHOLESTERO L Carvedilol 2020-08 Yes [id number] TAKE 1 K elsey 6.25 MG 2-30 TABLET BY Seybold oral Tablet 00:00: MOUTH 00 TWICE DAILY Trazodone 2020-08 Yes [id number] TAKE 1 K elsey HCl 50 MG 2-30 TABLET BY Seybo ld oral Tablet 00:00: MOUTH 00 EVERY EVENING Atorvastati 2020-08 Yes [id number] TAKE 1 Sara n Calcium 2-30 TABLET(40 Seybo ld 40 MG oral 00:00: MG) BY Tablet 00 MOUTH DAILY FOR CHOLESTERO L Trazodone 2020-08 Yes [id number] TAKE 1 K elsey HCl 50 MG 2-30 TABLET BY Seybo ld oral Tablet 00:00: MOUTH 00 EVERY EVENING Atorvastati 2020-08- No [id number] TAKE 1 Sara n Calcium 2-30 06-02 TABLET(40 Seyb old 40 MG oral 00:00: 00:00 MG) BY Tablet 00 :00 MOUTH DAILY FOR CHOLESTERO L Trazodone 2020-08- No [id number] TAKE 1 Sara HCl 50 MG 2-30 06-02 TABLET BY Seyb old oral Tablet 00:00: 00:00 MOUTH 00 :00 EVERY EVENING Tamsulosin 2020-08 Yes [id number] TAKE 1 Sara HCl 0.4 MG 2-13 CAPSULE(0. Sey bold oral 00:00: 4 MG) BY Capsule 00 MOUTH DAILY Metformin 2020-08 Yes [id number] TAKE 1 K elsey HCl ER 500 2-07 TABLET BY Seyb old MG oral 00:00: MOUTH TABLET SR 00 EVERY DAY 24 HR WITH BREAKFAST Metformin 2020-08 Yes [id number] TAKE 1 K elsey HCl ER 500 2-07 TABLET BY Seyb old MG oral 00:00: MOUTH TABLET SR 00 EVERY DAY 24 HR WITH BREAKFAST Metformin 2020-08 Yes [id number] TAKE 1 K elsey HCl ER 500 2-07 TABLET BY Seyb old MG oral 00:00: MOUTH TABLET SR 00 EVERY DAY 24 HR WITH BREAKFAST Multiple 2020-08 Yes Take by Sara Vitamins-Mi 09-01 mouth Seybold nerals 08:58: (MULTIVITAM 05 IN OR) Omeprazole 2020-08 Yes 20mg Take 20 mg K elsey 20 MG oral 09-01 by mouth Seybo ld Tablet 08:58: daily Delayed 05 Response Tamsulosin 2020-08 Yes [id number] .4mg Take 1 Sara HCl 0.4 MG 1-09 capsule Seybol d oral 00:00: (0.4 mg Capsule 00 total) by mouth daily Trazodone 2020-08 Yes [id number] TAKE 1 K elsey HCl 50 MG 0-13 TABLET BY Seybo ld oral Tablet 00:00: MOUTH 00 EVERY EVENING Carvedilol 2020-08 Yes [id number] TAKE 1 K elsey 6.25 MG 0-12 TABLET BY Seybold oral Tablet 00:00: MOUTH 00 TWICE DAILY Multiple 2020-08 Yes Take by Sara Vitamins-Mi 0-07 mouth Seybold nerals 14:14: (MULTIVITAM 18 IN OR) Omeprazole 2020-08 Yes 20mg Take 20 mg K elsey 20 MG oral 0-07 by mouth Seybo ld Tablet 14:14: daily Delayed 18 Response Amoxicillin 2020-08 Yes [id number] 1{tbl} Take 1 Sara -Pot 0-07 tablet by Seybold Clavulanate 00:00: mouth 2 (Augmentin) 00 times 875-125 MG daily oral Tablet Benzonatate 2020-08 Yes [id number] 200mg Q.[id number] Take 1 Sara 200 MG oral 0-07 [id number] capsule Seybold Capsule 00:00: 3D (200 mg 00 total) by mouth 3 times daily as needed for cough Benzonatate 2020-08 Yes [id number] 200mg Q.[id number] Take 1 Sara 200 MG oral 0-07 [id number] capsule Seybold Capsule 00:00: 3D (200 mg 00 total) by mouth 3 times daily as needed for cough Atorvastati 2020-08 Yes [id number] TAKE 1 Sara n Calcium 0-07 TABLET(40 Seybo ld 40 MG oral 00:00: MG) BY Tablet 00 MOUTH DAILY FOR CHOLESTERO L Amoxicillin 2020-08- No [id number] 1{tbl} Take 1 Sara -Pot 0-07 11-09 tablet by Seybold Clavulanate 00:00: 00:00 mouth 2 (Augmentin) 00 :00 times 875-125 MG daily oral Tablet Lisinopril Yes [id number] TAKE 1 K elsey 5 MG oral 8-25 TABLET BY Seybo ld Tablet 00:00: MOUTH 00 EVERY DAY Lisinopril Yes [id number] TAKE 1 K elsey 5 MG oral 8-25 TABLET BY Seybo ld Tablet 00:00: MOUTH 00 EVERY DAY Oxybutynin 0 Yes [id number] TAKE 1 Sara Chloride 10 7-26 TABLET(10 Sey bold MG oral 00:00: MG) BY TABLET SR 00 MOUTH 24 HR DAILY Trazodone Yes [id number] TAKE 1 K elsey HCl 50 MG 7-26 TABLET BY Seybo ld oral Tablet 00:00: MOUTH 00 EVERY EVENING Oxybutynin Yes [id number] TAKE 1 Sara Chloride 10 7-26 TABLET(10 Sey bold MG oral 00:00: MG) BY TABLET SR 00 MOUTH 24 HR DAILY Carvedilol Yes [id number] TAKE 1 K elsey 6.25 MG 7-26 TABLET BY Seybold oral Tablet 00:00: MOUTH 00 TWICE DAILY Oxybutynin Yes [id number] TAKE 1 Sara Chloride 10 7-26 TABLET(10 Sey bold MG oral 00:00: MG) BY TABLET SR 00 MOUTH 24 HR DAILY Atorvastati 2020- No [id number] TAKE 1 Sara n Calcium 7-16 10-07 TABLET(40 Seyb old 40 MG oral 00:00: 00:00 MG) BY Tablet 00 :00 MOUTH DAILY FOR CHOLESTERO L Metformin Yes [id number] TAKE 1 K elsey HCl ER 500 5-24 TABLET BY Seyb old MG oral 00:00: MOUTH TABLET SR 00 EVERY DAY 24 HR WITH BREAKFAST Metformin Yes [id number] TAKE 1 K elsey HCl ER 500 5-24 TABLET BY Seyb old MG oral 00:00: MOUTH TABLET SR 00 EVERY DAY 24 HR WITH BREAKFAST NaCl 0.9% 2020- No 1000mL at 999 Uni vers (NS) bolus 09-03 mL/hr, ity of infusion 11:30: 12:44 1,000 mL, Jasson as 1,000 mL 00 :00 IV Medical Infusion, Branch ONCE, 1 dose, 09/03/20 at 0530, FRACISCO famotidine 2020- No 20mg 20 mg, Univ ers (PEPCID 09-03 Slow IV ity of (PF)) 11:15: 10:01 Push, [place] injection 00 :00 ONCE, 1 Medical 20 mg dose, Mon Branch 09/03/20 at 0515, FRACISCO methylpredn 2020- No 125mg 125 mg, IV Univers isolone sod 09-03 Piggyback, i ty of succ 10:30: 09:25 ONCE, 1 [place] (SOLU-MEDRO 00 :00 dose, [facility] Med ical L) 09/03/20 at Branch injection 0430, STAT 125 mg NaCl 0.9% 2020- No 1000mL at 999 Uni vers (NS) bolus 09-03 mL/hr, ity of infusion 09:30: 11:27 1,000 mL, Jasson as 1,000 mL 00 :00 IV Medical Infusion, [place] ONCE, 1 dose, [facility] 09/03/20 at 0330, FRACISCO ondansetron Yes [id number] 4mg Take 1 Univers (ZOFRAN -11 tablet by ity of ODT) 4 mg 00:00: mouth [place] disintegrat 00 every 8 Medic al ing tablet (eight) [facility] as needed for Nausea and Vomiting (N/V). predniSONE No [id number] 50mg Take 5 Univers 10 mg 09-03 tablets by ity of tablet 00:00: 05:59 mouth [place] 00 :00 daily for Medical 4 days. [place] Trimix Yes [id number] .05mL Inject Milo sey Regular 7-16 0.05 mL in Seybol d Strength 00:00: the penis (Papaverine 00 as 30 directed mg/Phentola mine 1 mg/Prostagl andin 10 mcg per 1 mL) Tamsulosin Yes [id number] .4mg Take 1 Sara HCl 0.4 MG 7-16 capsule Seybol d oral Cap 00:00: (0.4 mg 00 total) by mouth daily Trimix Yes [id number] .05mL Inject Milo sey Regular 7-16 0.05 mL in Seybol d Strength 00:00: the penis (Papaverine 00 as 30 directed mg/Phentola mine 1 mg/Prostagl andin 10 mcg per 1 mL) Trimix Yes [id number] .05mL Inject Milo sey Regular 03-08 0.05 mL in Seybol d Strength 00:00: the penis (Papaverine 00 as 30 directed mg/Phentola mine 1 mg/Prostagl andin 10 mcg per 1 mL) Trimix 2021- No [id number] .05mL Inject Ke lsey Regular 03-0802 0.05 mL in Seybo ld Strength 00:00: 00:00 the penis (Papaverine 00 :00 as 30 directed mg/Phentola mine 1 mg/Prostagl andin 10 mcg per 1 mL) Tamsulosin 2020- No [id number] .4mg Take 1 Saar HCl 0.4 MG 03-08 capsule Seybo ld [...] twice Seybold Monitoring 00:00: daily 7 AM - (SPHYGMOMAN 00 and 7 PM. Ext juan OMETER) l does not apply Misc Blood 2020-0 Yes Measure BP Sara Pressure 6-16 twice Seybold Monitoring 00:00: daily 7 AM - (SPHYGMOMAN 00 and 7 PM. Ext juan OMETER) l does not apply Misc Blood 2020-0 Yes Measure BP Sara Pressure 6-16 twice Seybold Monitoring 00:00: daily 7 AM - (SPHYGMOMAN 00 and 7 PM. Ext juan OMETER) l does not apply Misc Blood 2020-0 Yes Measure BP Sara Pressure 6-16 twice Seybold Monitoring 00:00: daily 7 AM - (SPHYGMOMAN 00 and 7 PM. Ext juan OMETER) l does not apply Misc Blood 2020-0 Yes Measure BP Sara Pressure 6-16 twice Seybold Monitoring 00:00: daily 7 AM (SPHYGMOMAN 00 and 7 PM. OMETER) does not apply Misc Blood 2020-0 Yes Measure BP Sara Pressure 6-16 twice Seybold Monitoring 00:00: daily 7 AM (SPHYGMOMAN 00 and 7 PM. OMETER) does not apply Misc FLUTICASONE 2019-0 Yes 2 sprays Ke lsey PROPIONATE, 8-05 to each Seybo ld NASAL, 50 00:00: nostril MCG/ACT 00 daily nasal Suspension FLUTICASONE 2019-0 Yes 2 sprays Ke lsey PROPIONATE, 8-05 to each Seybo ld NASAL, 50 00:00: nostril MCG/ACT 00 daily nasal Suspension FLUTICASONE 2019-0 Yes 2 sprays Ke lsey PROPIONATE, 8-05 to each Seybo ld NASAL, 50 00:00: nostril MCG/ACT 00 daily nasal Suspension FLUTICASONE 2019-0 Yes 2 sprays Ke lsey PROPIONATE, 8-05 to each Seybo ld NASAL, 50 00:00: nostril - MCG/ACT 00 daily Externa nasal l Suspension FLUTICASONE 2019-0 Yes 2 sprays Ke lsey PROPIONATE, 8-05 to each Seybo ld NASAL, 50 00:00: nostril - MCG/ACT 00 daily Externa nasal l Suspension FLUTICASONE 2019-0 Yes 2 sprays Ke lsey PROPIONATE, 8-05 to each Seybo ld NASAL, 50 00:00: nostril - MCG/ACT 00 daily Externa nasal l Suspension FLUTICASONE 2019-0 Yes 2 sprays Ke lsey PROPIONATE, 8-05 to each Seybo ld NASAL, 50 00:00: nostril MCG/ACT 00 daily nasal Suspension FLUTICASONE 2019-0 Yes 2 sprays Ke lsey PROPIONATE, 8-05 to each Seybo ld NASAL, 50 00:00: nostril - MCG/ACT 00 daily Externa nasal l Suspension FLUTICASONE 2019-0 Yes 2 sprays Ke lsey PROPIONATE, 8-05 to each Seybo ld NASAL, 50 00:00: nostril MCG/ACT 00 daily nasal Suspension Loratadine 2019-0 Yes [id number] 1 tablet Sara (CLARITIN) 5-29 daily for Seyb old 10 MG oral 00:00: allergies tablet 00 Loratadine 2019-0 Yes [id number] 1 tablet Sara (CLARITIN) 5-29 daily for Seyb old 10 MG oral 00:00: allergies tablet 00 Loratadine 2019-0 Yes [id number] 1 tablet Sara (CLARITIN) 5-29 daily for Seyb old 10 MG oral 00:00: allergies tablet 00 Loratadine 2019-0 Yes [id number] 1 tablet Sara (CLARITIN) 5-29 daily for Seyb old 10 MG oral 00:00: allergies - tablet 00 Externa l Loratadine 2019-0 Yes [id number] 1 tablet Sara (CLARITIN) 5-29 daily for Seyb old 10 MG oral 00:00: allergies - tablet 00 Externa l Loratadine 2019-0 Yes [id number] 1 tablet Sara (CLARITIN) 5-29 daily for Seyb old 10 MG oral 00:00: allergies - tablet 00 Externa l Loratadine 2019-0 Yes [id number] 1 tablet Sara (CLARITIN) 5-29 daily for Seyb old 10 MG oral 00:00: allergies tablet 00 Loratadine 2019-0 Yes [id number] 1 tablet Sara (CLARITIN) 5-29 daily for Seyb old 10 MG oral 00:00: allergies - tablet 00 Externa l Loratadine 2019-0 Yes [id number] 1 tablet Sara (CLARITIN) 5-29 daily for Seyb old 10 MG oral 00:00: allergies tablet 00 Desoximetas 0 Yes [id number] Apply Sara one 0.25 % 8-06 sparingly Seyb old apply 00:00: BID to externally 00 rash of Ointment arms/legs PRN flares only. Not for use on face, armpits or groin. Desoximetas 0 Yes [id number] Apply Sara one 0.25 % 8-06 sparingly Seyb old apply 00:00: BID to externally 00 rash of Ointment arms/legs PRN flares only. Not for use on face, armpits or groin. Desoximetas Yes [id number] Apply Sara one 0.25 % 8-06 sparingly Seyb old apply 00:00: BID to externally 00 rash of Ointment arms/legs PRN flares only. Not for use on face, armpits or groin. Desoximetas Yes [id number] Apply Sara one 0.25 % 8-06 sparingly Seyb old apply 00:00: BID to - externally 00 rash of Assembly Member a Ointment arms/legs l PRN flares only. Not for use on face, armpits or groin. Desoximetas Yes [id number] Apply Sara one 0.25 % 8-06 sparingly Seyb old apply 00:00: BID to - externally 00 rash of Assembly Member a Ointment arms/legs l PRN flares only. Not for use on face, armpits or groin. Desoximetas Yes [id number] Apply Sara one 0.25 % 8-06 sparingly Seyb old apply 00:00: BID to - externally 00 rash of Assembly Member a Ointment arms/legs l PRN flares only. Not for use on face, armpits or groin. Desoximetas Yes [id number] Apply Sara one 0.25 % 8-06 sparingly Seyb old apply 00:00: BID to externally 00 rash of Ointment arms/legs PRN flares only. Not for use on face, armpits or groin. Desoximetas Yes [id number] Apply Sara one 0.25 % 8-06 sparingly Seyb old apply 00:00: BID to - externally 00 rash of Assembly Member a Ointment arms/legs l PRN flares only. Not for use on face, armpits or groin. Desoximetas Yes [id number] Apply Sara one 0.25 % 8-06 sparingly Seyb old apply 00:00: BID to externally 00 rash of Ointment arms/legs PRN flares only. Not for use on face, armpits or groin. metoprolol Yes 25mg Take 25 mg U nivers tartrate 6-21 by mouth 2 ity o f (LOPRESSOR) 13:50: (two) [place] 25 mg 10 times Medical tablet daily. Branch MULTIVITAMI Yes Take by Uni vers N 6-21 mouth. ity of W-MINERALS/ 13:43: [place] [address] Medical (CENTRUM Branch SILVER ORAL) aspirin 81 Yes 81mg Take 81 mg U nivers mg tablet 6-21 by mouth ity of 13:43: daily. [address] Branch meloxicam Yes 15mg Take 15 mg Un anna (MOBIC) 15 6-21 by mouth ity o f mg tablet 13:43: daily. [address] lovastatin Yes 20mg Take 20 mg U nivers (MEVACOR) 6-21 by mouth ity of 20 mg 13:43: at [place] [address] bedtime. [facility] Immunizations Ordered Immunization Filled Immunization Date Status Commen ts Source Name Name Influenza Virus 2022-05-09 Completed Sara Se ybold Vaccine, High Dose, 00:00:00 - Ext ernal Age 65 And Up Influenza Virus 2022-05-09 Completed Sara Se ybold Vaccine, High Dose, 00:00:00 - Ext ernal Age 65 And Up Influenza Virus 2022-05-09 Completed Sara Se ybold Vaccine, High Dose, 00:00:00 - Ext ernal Age 65 And Up Influenza Virus 2021-07-02 Completed Sara Se ybold Vaccine, 00:00:00 Quadrivalent, High Dose, Age 65 And Up Covid-19 Vaccine 2021-07-02 Completed Sara leonardobold (Newsy), Mrna-lnp, 00:00:00 Lei Protein, Pf, 30mcg/0.3ml,IM Influenza Virus 2021-07-02 Completed Sara Se ybold Vaccine, 00:00:00 Quadrivalent, High Dose, Age 65 And Up Covid-19 Vaccine 2021-07-02 Completed Sara leonardobold (Newsy), Mrna-lnp, 00:00:00 Lei Protein, Pf, 30mcg/0.3ml,IM Influenza Virus 2021-07-02 Completed Sara Se ybold Vaccine, 00:00:00 Quadrivalent, High Dose, Age 65 And Up Covid-19 Vaccine 2021-07-02 Completed Sara S eybold (Newsy), Mrna-lnp, 00:00:00 Lei Protein, Pf, 30mcg/0.3ml,IM Influenza Virus 2021-07-02 Completed Sara Se ybold Vaccine, 00:00:00 - External Quadrivalent, High Dose, Age 65 And Up Covid-19 Vaccine 2021-07-02 Completed Sara S malissabold (Newsy), Mrna-lnp, 00:00:00 - Ext ernal Lei Protein, Pf, 30mcg/0.3ml,IM Influenza Virus 2021-07-02 Completed Sara Se ybold Vaccine, 00:00:00 - External Quadrivalent, High Dose, Age 65 And Up Covid-19 Vaccine 2021-07-02 Completed Sara S eybold (Newsy), Mrna-lnp, 00:00:00 - Ext ernal Lei Protein, Pf, 30mcg/0.3ml,IM Influenza Virus 2021-07-02 Completed Sara Se ybold Vaccine, 00:00:00 - External Quadrivalent, High Dose, Age 65 And Up Covid-19 Vaccine 2021-07-02 Completed Sara S eybold (Newsy), Mrna-lnp, 00:00:00 - Ext ernal Lei Protein, Pf, 30mcg/0.3ml,IM Influenza Virus 2021-07-02 Completed Sara Se ybold Vaccine, 00:00:00 - External Quadrivalent, High Dose, Age 65 And Up Covid-19 Vaccine 2021-07-02 Completed Sara S malissabold (Newsy), Mrna-lnp, 00:00:00 - Ext ernal Lei Protein, Pf, 30mcg/0.3ml,IM Influenza Virus 2021-07-02 Completed Sara Se ybold Vaccine, 00:00:00 Quadrivalent, High Dose, Age 65 And Up Covid-19 Vaccine 2021-07-02 Completed Sara S eybold (Newsy), Mrna-lnp, 00:00:00 Lei Protein, Pf, 30mcg/0.3ml,IM Influenza Virus 2020-05-10 Completed Sara Se ybold Vaccine, High Dose, 00:00:00 Age 65 And Up Influenza Virus 2020-05-10 Completed Sara Se ybold Vaccine, High Dose, 00:00:00 Age 65 And Up Influenza Virus 2020-05-10 Completed Sara Se ybold Vaccine, High Dose, 00:00:00 Age 65 And Up Influenza Virus 2020-05-10 Completed Sara Se ybold Vaccine, High Dose, 00:00:00 - Ext ernal Age 65 And Up Influenza Virus 2020-05-10 Completed Sara Se ybold Vaccine, High Dose, 00:00:00 - Ext ernal Age 65 And Up Influenza Virus 2020-05-10 Completed Sara Se ybold Vaccine, High Dose, 00:00:00 - Ext ernal Age 65 And Up Influenza Virus 2020-05-10 Completed Sara Se ybold Vaccine, High Dose, 00:00:00 - Ext ernal Age 65 And Up Influenza Virus 2020-05-10 [...] Sara Se ybold Vaccine, High Dose, 00:00:00 - Ext ernal Age 65 And Up Influenza Virus 2019-05-21 Completed Sara Se ybold Vaccine, High Dose, 00:00:00 - Ext ernal Age 65 And Up Influenza Virus 2019-05-21 Completed Sara Se ybold Vaccine, High Dose, 00:00:00 - Ext ernal Age 65 And Up Influenza Virus 2019-05-21 Completed Sara Se ybold Vaccine, High Dose, 00:00:00 - Ext ernal Age 65 And Up Influenza Virus 2019-05-21 Completed Sara Se ybold Vaccine, High Dose, 00:00:00 Age 65 And Up Influenza Virus 2019-05-21 Completed Sara Se ybold Vaccine, High Dose, 00:00:00 Age 65 And Up Shingles IM 2019-04-02 Completed Sara Seybol d (Shingrix) 00:00:00 Shingles IM 2019-04-02 Completed Sara Seybol d (Shingrix) 00:00:00 Shingles IM 2019-04-02 Completed Sara Seybol d (Shingrix) 00:00:00 Shingles IM 2019-04-02 Completed Sara Seybol d (Shingrix) 00:00:00 - External Shingles IM 2019-04-02 Completed Sara Seybol d (Shingrix) 00:00:00 - External Shingles IM 2019-04-02 Completed Sara Seybol d (Shingrix) 00:00:00 - External Shingles IM 2019-04-02 Completed Sara Seybol d (Shingrix) 00:00:00 - External Shingles IM 2019-04-02 Completed Sara Seybol d (Shingrix) 00:00:00 Shingles IM 2019-04-02 Completed Sara Seybol d (Shingrix) 00:00:00 Shingles IM 2019-01-19 Completed Sara Seybol d (Shingrix) 00:00:00 Shingles IM 2019-01-19 Completed Sara Seybol d (Shingrix) 00:00:00 Shingles IM 2019-01-19 Completed Sara Seybol d (Shingrix) 00:00:00 Shingles IM 2019-01-19 Completed Sara Seybol d (Shingrix) 00:00:00 - External Shingles IM 2019-01-19 Completed Sara Seybol d (Shingrix) 00:00:00 - External Shingles IM 2019-01-19 Completed Sara Seybol d (Shingrix) 00:00:00 - External Shingles IM 2019-01-19 Completed Sara Seybol d (Shingrix) 00:00:00 - External Shingles IM 2019-01-19 Completed Sara Seybol d (Shingrix) 00:00:00 Shingles IM 2019-01-19 Completed Sara Seybol d (Shingrix) 00:00:00 Influenza Virus 2017-07-09 Completed Sara Se ybold Vaccine, High Dose, 00:00:00 Age 65 And Up Influenza Virus 2017-07-09 Completed Sara Se ybold Vaccine, High Dose, 00:00:00 Age 65 And Up Influenza Virus 2017-07-09 Completed Sara Se ybold Vaccine, High Dose, 00:00:00 Age 65 And Up Influenza Virus 2017-07-09 Completed Sara Se ybold Vaccine, High Dose, 00:00:00 - Ext ernal Age 65 And Up Influenza Virus 2017-07-09 Completed Sara Se ybold Vaccine, High Dose, 00:00:00 - Ext ernal Age 65 And Up Influenza Virus 2017-07-09 Completed Sara Se ybold Vaccine, High Dose, 00:00:00 - Ext ernal Age 65 And Up Influenza Virus 2017-07-09 Completed Sara Se ybold Vaccine, High Dose, 00:00:00 - Ext ernal Age 65 And Up Influenza Virus 2017-07-09 [...] Completed Milo sey Seybold Conjugate 13 00:00:00 - External Tdap- (Boostrix, 2016-01-11 Completed Sara S eybold Adacel) 00:00:00 - External Pneumococcal Vaccine, 2016-01-11 Completed Milo sey Seybold Conjugate 13 00:00:00 - External Tdap- (Boostrix, 2016-01-11 Completed Sara S eybold Adacel) 00:00:00 - External Pneumococcal Vaccine, 2016-01-11 Completed Milo sey Seybold Conjugate 13 00:00:00 - External Tdap- (Boostrix, 2016-01-11 Completed Sara S eybold Adacel) 00:00:00 - External Pneumococcal Vaccine, 2016-01-11 Completed Milo sey Seybold Conjugate 13 00:00:00 - External Tdap- (Boostrix, 2016-01-11 Completed Sara S eybold Adacel) 00:00:00 - External Pneumococcal Vaccine, 2016-01-11 Completed Milo sey Seybold [...] 2015-01-19 Completed Milo sey Seybold Polysaccharide 00:00:00 - External Pneumococcal Vaccine, 2015-01-19 Completed Milo sey Seybold Polysaccharide 00:00:00 - External Pneumococcal Vaccine, 2015-01-19 Completed Milo sey Seybold Polysaccharide 00:00:00 - External Pneumococcal Vaccine, 2015-01-19 Completed Milo sey Seybold Polysaccharide 00:00:00 - External Pneumococcal Vaccine, 2015-01-19 Completed Milo sey Seybold Polysaccharide 00:00:00 Pneumococcal Vaccine, 2015-01-19 Completed Milo sey Seybold Polysaccharide 00:00:00 Td- Tetanus & 2013-09-30 Completed Sara Seyb old Diphtheria Vaccine 00:00:00 (age 7+ years) Shingles SQ 2013-09-30 Completed Sara Seybol d (Zostavax) 00:00:00 Td- Tetanus & 2013-09-30 Completed Sara Seyb old Diphtheria Vaccine 00:00:00 (age 7+ years) Shingles SQ 2013-09-30 Completed Sara Seybol d (Zostavax) 00:00:00 Td- Tetanus & 2013-09-30 Completed Sara Seyb old Diphtheria Vaccine 00:00:00 (age 7+ years) Shingles SQ 2013-09-30 Completed Sara Seybol d (Zostavax) 00:00:00 Td- Tetanus & 2013-09-30 Completed Sara Nielsonyb old Diphtheria Vaccine 00:00:00 - Exte rnal (age 7+ years) Shingles SQ 2013-09-30 Completed Sara Seybol d (Zostavax) 00:00:00 - External Td- Tetanus & 2013-09-30 Completed Sara Seyb old Diphtheria Vaccine 00:00:00 - Exte rnal (age 7+ years) Shingles SQ 2013-09-30 Completed Sara Seybol d (Zostavax) 00:00:00 - External Td- Tetanus & 2013-09-30 Completed Sara Seyb old Diphtheria Vaccine 00:00:00 - Exte rnal (age 7+ years) Shingles 2013-09-30 Completed Sara Seybol d (Zostavax) 00:00:00 - External Td- Tetanus & 2013-09-30 Completed Sara Nielsonyb old Diphtheria Vaccine 00:00:00 - Exte rnal (age 7+ years) Shingles 2013-09-30 Completed Sara Nielsonybol d (Zostavax) 00:00:00 - External Td- Tetanus & 2013-09-30 Completed Sara Nielsonyb old Diphtheria Vaccine 00:00:00 (age 7+ years) Shingles 2013-09-30 Completed Sara Seybol d (Zostavax) 00:00:00 Td- Tetanus & 2013-09-30 Completed Sara Seyb old Diphtheria Vaccine 00:00:00 (age 7+ years) Shingles 2013-09-30 Completed Sara Nielsonybol d (Zostavax) 00:00:00 Vital Signs Vital Name Observation Time Observation Value Comments Source Systolic blood 2022-12-25 15:02:00 104 mm[Hg] Sara Nielsonybold - pressure External Diastolic blood 2022-12-25 15:02:00 62 mm[Hg] Eric paul Seybold - pressure External Heart rate 2022-12-25 15:02:00 76 /min Sara Aranda eybold - External Body temperature 2022-12-25 15:02:00 36.67 Clarita Hien ey Seybold - External Respiratory rate 2022-12-25 15:02:00 14 /min Hien ey Seybold - External Body height 2022-12-25 15:02:00 167.6 cm Sara Aranda eybold - External Body weight 2022-12-25 15:02:00 96.616 kg Sara S eybold - External BMI 2022-12-25 15:02:00 34.38 kg/m2 Sara S eybold - External Body weight 2022-07-25 19:30:00 97.07 kg Sara S eybold - External BMI 2022-07-25 19:30:00 34.54 kg/m2 Sara S eybold - External Body height 2022-07-24 15:48:00 167.6 cm Sara S eybold - External Body weight 2022-07-24 15:48:00 97.07 kg Sara Aranda eybold - External BMI 2022-07-24 15:48:00 34.54 kg/m2 Sara Aranda eybold - External Systolic blood 2022-05-20 13:45:00 126 mm[Hg] Sara Seybold - pressure External Diastolic blood 2022-05-20 13:45:00 72 mm[Hg] Milose y Seybold - pressure External Heart rate 2022-05-20 13:45:00 71 /min Sara Aranda eybold - External Body temperature 2022-05-20 13:45:00 36.44 Clarita Hien ey Seybold - External Respiratory rate 2022-05-20 13:45:00 20 /min Hien ey Seybold - External Body height 2022-05-20 13:45:00 167.6 cm Sara Aranda eybold - External Body weight 2022-05-20 13:45:00 97.07 kg Sara S eybold - External BMI 2022-05-20 13:45:00 34.54 kg/m2 Sara Aranda eybold - External Oxygen saturation in 2022-05-20 13:45:00 96 /min Sara Rob - Arterial blood by External Pulse oximetry Systolic blood 2022-01-23 18:59:00 106 mm[Hg] Sara Seybold pressure Diastolic blood 2022-01-23 18:59:00 60 mm[Hg] Kelse y Seybold pressure Heart rate 2022-01-23 18:59:00 72 /min Sara S eybold Body temperature 2022-01-23 18:59:00 36.78 Clarita Hien ey Seybold Respiratory rate 2022-01-23 18:59:00 18 /min Hien ey Seybold Body height 2022-01-23 18:59:00 167.6 cm Sara S eybold Body weight 2022-01-23 18:59:00 97.523 kg Sara S eybold BMI 2022-01-23 18:59:00 34.70 kg/m2 Sara S eybold Systolic blood 2022-01-23 14:35:00 122 mm[Hg] Sara Seybold pressure Diastolic blood 2022-01-23 14:35:00 70 mm[Hg] Kelse y Seybold pressure Heart rate 2022-01-23 14:35:00 60 /min Sara Aranda eybold Body temperature 2022-01-23 14:35:00 36.67 Clarita Hien ey Seybold Respiratory rate 2022-01-23 14:35:00 16 /min Hien ey Seybold Body height 2022-01-23 14:35:00 167.6 cm Sraa Aranda eybold Body weight 2022-01-23 14:35:00 97.523 kg Sara Aranda eybold BMI 2022-01-23 14:35:00 34.70 kg/m2 Sara S eybold HEIGHT 2021-10-28 07:57:00 167.6 cm WEIGHT 2021-10-28 07:57:00 99.338 kg HEIGHT 2021-10-28 07:57:00 167.6 cm WEIGHT 2021-10-28 07:57:00 99.338 kg Systolic blood 2021-07-02 14:13:00 114 mm[Hg] Sara Seybold pressure Diastolic blood 2021-07-02 14:13:00 66 mm[Hg] Kelse y Seybold pressure Heart rate 2021-07-02 14:13:00 68 /min Sara S eybold Body temperature 2021-07-02 14:13:00 36.67 Clarita Hien ey Seybold Respiratory rate 2021-07-02 14:13:00 16 /min Hien ey Seybold Body height 2021-07-02 14:13:00 167.6 cm Sara noland Body weight 2021-07-02 14:13:00 99.338 kg Sara onland BMI 2021-07-02 14:13:00 35.35 kg/m2 Sara noland Systolic blood 2020-09-03 12:45:00 119 mm[Hg] Univer sity of pressure [facility] Diastolic blood 2020-09-03 12:45:00 74 mm[Hg] Unive rsity of pressure [facility] Heart rate 2020-09-03 12:45:00 70 /min [facility] Respiratory rate 2020-09-03 12:45:00 18 /min [facility] Oxygen saturation in 2020-09-03 12:45:00 98 /min [facility] Arterial blood by [facility] Pulse oximetry Branch Body temperature 2020-09-03 09:21:00 36.11 Clarita [facility] Body height 2020-09-03 09:21:00 170.2 cm [facility] Body weight 2020-09-03 09:21:00 100.245 kg [facility] BMI 2020-09-03 09:21:00 34.61 kg/m2 [facility] Procedures Procedure Date / Time Performed Performing Clinician Aleksey DEAL 2022-12-25 15:12:14 Ayah Wilkes ld - External URINALYSIS NONAUTO W/O 2021-07-02 14:45:00 Ayah Wilkes SCOPE URINALYSIS 2020-09-03 09:49:[address] [facility] NOTICE OF PRIVACY 2020-09-03 09:39:35 Doctor Unassigned, No [facility] PRACTICES Name [facility] CONSENT/REFUSAL FOR 2020-09-03 09:39:13 Doctor Unassigned, No [facility] DIAGNOSIS AND Name [facility] TREATMENT LIPASE 2020-09-03 09:25:[address] [facility] TROPONIN I 2020-09-03 09:25:[address] [facility] HEPATIC FUNCTION PANEL 2020-09-03 09:25:00 Lilly Barba [facility] ([id number]) Medical Branch (ALB,T.PRO,BILI T,BU/BC,ALT,AST,ALK PHOS) BASIC METABOLIC PANEL 2020-09-03 09:25:00 Lilly [facility] (NA, K, CL, CO2, Medical Branch GLUCOSE, BUN, CREATININE, CA) CBC WITH DIFF 2020-09-03 09:25:00 Lilly Barba [facility] Plan of Care Planned Activity Planned Date Details Comments Source Future Scheduled 2026-01-10 DTAP/TDAP/TD VACCINES [facility] 00:00:00 (2 - Td or Tdap) [code Medic al Center = DTAP/TDAP/TD VACCINES (2 - Td or Tdap)] Future Scheduled 2023-04-[address] [facility] 00:00:00 (Season Ended) [code = Medic al Center INFLUENZA VACCINE (Season Ended)] Future Scheduled 2022-10-[address] [facility] 00:00:00 Counseling and Medical Cente r Screening (12+) [code = Tobacco Cessation Counseling and Screening (12+)] Future Scheduled 2022-08-[address] [facility] 00:00:00 (12+) [code = Medical Center DEPRESSION SCREENING (12+)] Future Scheduled 2022-08-24 FALLS RISK SCREENING [facility] 00:00:00 [code = FALLS RISK Medical C enter SCREENING] Future Scheduled 2021-08-[address] [facility] 00:00:00 WELLNESS (YEAR 2 or Medical Center FIRST YEAR if no IPPE) [code = MEDICARE ANNUAL WELLNESS (YEAR 2 or FIRST YEAR if no IPPE)] Future Scheduled 2021-07-23 COVID-19 VACCINE (2 - [facility] 00:00:00 Pfizer series) [code = Medic al Center COVID-19 VACCINE (2 - Pfizer series)] Future Scheduled 2013-11-25 SHINGLES VACCINES ([address] [facility] 00:00:00 3) [code = SHINGLES Medical Center VACCINES (2 of 3)] Future Scheduled 1968-01-17 HEPATITIS C SCREENING [facility] 00:00:00 [code = HEPATITIS C Medical Center SCREENING] Future Scheduled 1950 CT Colonography (combo) [facility] 00:00:00 [code = CT Colonography [facility] Center (combo)] Future Scheduled 1950 Screening for malignant [facility] 00:00:00 neoplasm of colon Medical Ce nter (procedure) [code = 727782055] Future Scheduled 1950 Screening for malignant [facility] 00:00:00 neoplasm of colon Medical Ce nter (procedure) [code = 316292643] Future Scheduled 1950 Screening for malignant [facility] 00:00:00 neoplasm of colon Medical Ce nter (procedure) [code = 521009180] Future Scheduled 1950 Screening for malignant [facility] 00:00:00 neoplasm of colon Medical Ce nter (procedure) [code = 967835657] Future Scheduled 1950 Sigmoidoscopy [code = [facility] 00:[facility]:00 Sigmoidoscopy] Medical [facility] Encounters Start End Encounter Admission Attending Care Care Encounter Source Date/Time Date/Time Type Type Clinicians Facility Department ID 2022-12-29 2022-12-29 Outpatient SARA WILKES [id number] Sara 00:00:00 00:00:00 AYAH Seybol d 2022-12-25 2022-12-25 Outpatient LAB59 SARA RUIZ [id number] Sara 11:30:00 11:30:00 Seybol d 2022-12-25 2022-12-25 Outpatient SARA WILKES [id number] Sara 10:30:00 10:30:00 AYAH Seybol d 2022-12-22 2022-12-22 Outpatient SARA WILKES [id number] Sara 00:00:00 00:00:00 AYAH Seybol d 2022-12-21 2022-12-21 Outpatient SARA WILKES [id number] Sara 00:00:00 00:00:00 AYAH Seybol d 2022-09-26 2022-09-26 Outpatient SARA SANCHEZ [id number] Sara 00:00:00 00:00:00 BRYNN Seybol d 2022-09-25 2022-09-25 Outpatient KATRIN SARA RUIZ [id number] Sara 00:00:00 00:00:00 AYAH Seybol d 2022-09-23 2022-09-23 Outpatient ANDRESSA SARA RUIZ [id number] Sara 00:00:00 00:00:00 BRYNN Seybol d 2022-09-19 2022-09-19 Outpatient KATRIN SARA RUIZ [id number] Sara 00:00:00 00:00:00 AYAH Seybol d 2022-08-08 2022-08-08 Outpatient KATRIN SARA RUIZ [id number] Sara 00:00:00 00:00:00 AYAH Seybol d 2022-07-25 2022-07-25 Outpatient AARONSARA [id number] Sara 13:40:00 13:40:00 ROMMEL Seybol d 2022-07-25 2022-07-25 Outpatient SARA RUIZ [id number] Sara 12:40:00 12:40:00 Seybol d 2022-07-25 2022-07-25 Outpatient AARONSARA [id number] Sara 00:00:00 00:00:00 ROMMEL Seybol d 2022-07-24 2022-07-24 Outpatient SHEARERSARA [id number] Sara 10:30:00 10:30:00 RELL Seybo ld 2022-07-10 2022-07-10 Outpatient SYEDA MARTINI [id number] Sara 06:30:00 06:30:00 Seybol d 2022-07-10 2022-07-10 Outpatient SUNG HERNANDEZ [id number] Sara 00:00:00 00:00:00 Seybol d 2022-07-01 2022-07-01 Outpatient SYEDA MARTINI [id number] Sara 00:00:00 00:00:00 Seybol d 2022-06-11 2022-06-11 Outpatient HUONG RUIZ [id number] Sara 00:00:00 00:00:00 INE, MD Seybol d 2022-06-10 2022-06-10 Outpatient LUDA SARA RUIZ [id number] Sara 10:00:00 10:00:00 SINA Seybol d 2022-06-05 2022-06-05 Outpatient VINIDEBORAH MoralesGerman RUIZ [id number] Sara 09:00:00 09:00:00 Seybol d 2022-06-05 2022-06-05 Outpatient LUÍSSARA [id number] Sara 00:00:00 00:00:00 GUERITA Seybol d 2022-05-20 2022-05-20 Outpatient LAB53 SARA RUIZ [id number] Sara 09:35:00 09:35:00 Seybol d 2022-05-20 2022-05-20 Outpatient VINIDEBORAH MoralesGerman RUIZ [id number] Sara 09:00:00 09:00:00 Seybol d 2022-05-20 2022-05-20 Outpatient VINI, SYEDAGerman RUIZ [id number] Sara 00:00:00 00:00:00 Seybol d 2022-05-19 2022-05-19 Outpatient VINI, SYEDA RUIZ [id number] Sara 00:00:00 00:00:00 Seybol d 2022-05-19 2022-05-19 Outpatient HUONG SARA RUIZ [id number] Sara 00:00:00 00:00:00 MD GEOVANNY Seybol d 2022-02-19 2022-02-19 Telemedici PARAMJIT HAMMER [id number] Sara 16:30:00 16:30:00 ne BELIA [id number] Se ybold 1.2.7.2.686 [id number] 2022-02-18 2022-02-18 Outpatient SARA WILKES [id number] Sara 00:00:00 00:00:00 AYAH Seybol d 2022-02-13 2022-02-13 Outpatient SARA WILKES [id number] Sara 00:00:00 00:00:00 AYAH Seybol d 2022-01-25 2022-01-25 Outpatient SARA RUIZ [id number] Sara 09:35:00 09:35:00 Seybol d 2022-01-25 2022-01-25 Outpatient LAB45 SARA RUIZ [id number] Sara 09:20:00 09:20:00 Seybol d 2022-01-23 2022-01-23 Office NILSA Sanchez [id number] Sara 14:30:00 15:00:00 Visit [facility] [id number] Se ybold [id number] [id number] 2022-01-23 2022-01-23 Office NILSA Cortez [id number] Sara 09:45:00 10:00:00 Visit [facility] 350.1.13.13 S eybold 1.2.7.2.686 [id number] 2022-01-23 2022-01-23 Outpatient SARA WILKES [id number] Sara 08:00:00 08:00:00 AYAH Seybol d 2021-11-25 2021-11-25 Outpatient SARA GARCIA [id number] Sara 10:40:00 10:40:00 ALEJANDRO Payneo ld 2021-11-25 2021-11-25 Outpatient 39, HOLTER SARA RUIZ [id number] Sara 10:30:00 10:30:00 Seybol d 2021-11-09 2021-11-09 Telemedici LUCY YUSUF [id number] Sara 10:30:00 10:30:[address] [facility] 350.1.13.13 Se ybold 1.2.7.2.686 [id number] 2021-11-09 2021-11-09 Outpatient SARA STACK [id number] Sara 00:00:00 00:00:00 DEMARCUS Seybol d 2021-11-06 2021-11-06 Outpatient SARA WILKES [id number] Sara 00:00:00 00:00:00 AYAH Seybol d 2021-10-30 2021-10-30 Outpatient SARA WILKES [id number] Sara 00:00:00 00:00:00 AYAH Seybol d 2021-10-28 2021-10-28 Outpatient JEANETTE GARCIA, SLE Surgery [id number] [facility] 07:44:00 18:25:00 ALEJANDRO 2021-10-28 2021-10-28 Outpatient SARA PADGETT [id number] Sara 00:00:00 00:00:00 CHRISTIN Seybol d 2021-10-24 2021-10-24 Outpatient SWAB, [facility] SARA RUIZ [id number] Sara 09:20:00 09:20:00 Seybol d 2021-10-24 2021-10-24 Outpatient FUS06-VGA SARA RUIZ [id number] Sara 09:20:00 09:20:00 Seybol d 2021-10-18 2021-10-18 Outpatient SARA RUIZ [id number] Sara 08:00:00 08:00:00 Seybol d 2021-10-18 2021-10-18 Outpatient LAB47 SARA RUIZ [id number] Sara 07:35:00 07:35:00 Seybol d 2021-10-17 2021-10-17 Outpatient SARA RUIZ [id number] Sara 00:00:00 00:00:00 Seybol d 2021-10-16 2021-10-16 Outpatient SARA GARCIA [id number] Sara 00:00:00 00:00:00 ALEJANDRO Seybo ld 2021-10-15 2021-10-15 Outpatient HUONG RUIZ [id number] Sara 00:00:00 00:00:00 MD GEOVANNY Seybol d 2021-10-11 2021-10-11 Outpatient SARA RUIZ [id number] Sara 14:00:00 14:00:00 Seybol d 2021-10-11 2021-10-11 Outpatient SARA RUIZ [id number] Sara 10:00:00 10:00:00 Seybol d 2021-10-11 2021-10-11 Outpatient HUONG SARA RUIZ [id number] Sara 00:00:00 00:00:00 MD GEOVANNY Seybol d 2021-10-09 2021-10-09 Outpatient LAB61 SARA RUIZ [id number] Sara 07:50:00 07:50:00 Seybol d 2021-09-30 2021-09-30 Outpatient SARA GARCIA [id number] Sara 11:00:00 11:00:00 ALEJANDRO Seybo ld 2021-09-30 2021-09-30 Outpatient 39, HOLTER SARA RUIZ [id number] Sara 11:00:00 11:00:00 Seybol d 2021-09-30 2021-09-30 Outpatient RADIOLOGY, SARA RUIZ [id number] Sara 00:00:00 00:00:00 DEPT Seybol d 2021-09-20 2021-09-20 Outpatient SARA SANCHES [id number] Sara 00:00:00 00:00:00 ATASU Seybol d 2021-08-21 2021-08-21 Outpatient KATRINSARA GOODMAN [id number] Sara 00:00:00 00:00:00 AYAH Seybol d 2021-08-03 2021-08-03 Outpatient SARA WILKES [id number] Sara 00:00:00 00:00:00 AYAH Seybol d 2021-07-30 2021-07-30 Outpatient SARA WILKES [id number] Sara 00:00:00 00:00:00 AYAH Seybol d 2021-07-02 2021-07-02 Outpatient COVID-PFIZE SARA RUIZ [id number] Sara 11:30:00 11:30:00 Piero QUARLES 2021-07-02 2021-07-02 Outpatient LAB59 SARA RUIZ [id number] Sara 09:20:00 09:20:00 Seybol d 2021-07-02 2021-07-02 Outpatient MRB40-UFA SARA RUIZ [id number] Sara 09:15:00 09:15:00 Seybol d 2021-07-02 2021-07-02 Office PARAMJIT Wilkes 1.2.840.114 [id number] Sara 07:33:48 07:48:48 Visit Ayah 350.1.13.13 Se ybold 1.2.7.2.686 [id number] 2021-05-30 2021-05-30 Telemedici PARAMJIT Wilkes 1.2.840.114 [id number] Sara 14:13:45 14:23:16 ne Ayah 350.1.13.13 Se ybold 1.2.7.2.686 [id number] 2021-05-13 2021-05-13 Outpatient HUONG RUIZ [id number] Sara 00:00:00 00:00:00 MD Rashard SMALL 2020-09-03 2020-09-03 Emergency [facility] 1.2.840.114 [id number] [facility] 03:23:00 06:47:00 [facility] [id number] [place] [id number] [address] 2020-09-03 2020-09-03 Emergency X [facility] E[facility] [id number] Univers 03:23:00 03:23:00 LILLY lopez [facility] 2019-10-22 2019-10-23 Emergency E SONYA, [facility] [address] 19:46:00 00:35:00 LISBETH Results Test Description Test Time Test Comments Results Result Comments Source [employer] 2022-12-25 15:14:01 Test Item Value Reference Range Interpretation Comme nts [employer] left side (test 1.34 See_Comment [ Automated message] The system which code = 89595-6P) generated t his result transmitted reference range : 1.40 - 0.90 NA. The reference range was not used to interpret this result as normal/abnormal . [employer] right side (test 1.36 See_Comment P resentation Factors: code = 60454-5Y) Hyperlipide miaExercise Modality: At Restrestest x2 right hand for movement, left foot x4 du e to cool feet, test completedNormal - 1.40 - 1.00Borderline - 0.99 - 0.90Mi ld - 0.89 - 0.60Moderate - 0.59 - 0.30Se jamel - 0.29 - 0.00 [Automated mess age] The system which generated this result transmitted reference range : 1.40 - 0.90 NA. The reference range was not used to interpret this result as normal/abnormal . Sara Rivas - ExternalPOCT-GLUCOSE [id number] 14:10:44 Test Item Value Reference Range Interpretation Comments POC-GLUCOSE METER 84 mg/dL 70-110 : TESTED A T [facility] 67 ([facility]) (test code = [facility], 1538) [address]: Flow Manager/Techni keshia ID = [id number] for BARBARA BUSTOS [id number] 13:37:51 Test Item Value Reference Range Interpretation Comments ACTIVATED CLOTTING TIME 249 sec : 74 -137 seconds, (BEAKER) (test code = Baseli ne: TESTED AT 441) [facility] [address] [facility], 770 30: Flow Manager/Techni keshia ID = [id number] for Do geo, Kumar [id number] 12:56:14 Test Item Value Reference Range Interpretation Comments ACTIVATED CLOTTING TIME 279 sec : 74 -137 seconds, (BEAKER) (test code = Baseli ne: TESTED AT 441) [place] [id number] [facility], 770 30: Flow Manager/Techni keshia ID = [id number] for Do geo, Kumar URINALYSIS NONAUTO W/O [id number] 14:45:00 Test Item Value Reference Range Interpretation Comments UD KETONES (test code neg 5-160 = 635294) UD GLUCOSE (test code neg 100-2000 = 482709) UD PROTEIN (test code neg Trace - 2000 mg/dL = 599115) UD LEUKOCYTES (test neg Trace - Large @ 2 code = 599272) min. UD NITRITE (test code neg Neg. - Pos. @ 60 = 295526) sec. UD UROBILINOGEN (test 0.2 mg/dL 0.2-8 code = 750266) UD PH (test code = See_Comment [Automat ed message] 078564) The system [address] generated this result transmit natalie reference range : 5.0 - 8.5 @ 60 sec. . The reference range was not used to interpret this result as normal/abnormal . UD BLOOD (test code = neg Neg. - Large @ 60 567406) sec. UD SPECIFIC GRAVITY See_Comment [Automa natalie message] (test code = 067692) The sys tem which generated this result transmit natalie reference range : 1.000 - 1.030 @ 45 sec.. The refer ence range was not u sed to interpret th is result as normal/abnormal . UD BILIRUBIN (test neg Neg. - Large @ 45 code = 712248) sec. Sara [id number] 10:20:00 Test Item Value Reference Range Interpretation Comments APPEARANCE (test code = Clear Clear 0845300694) COLOR (test code = Yellow Yellow 7512813594) PH (test code = 4.8-8.0 3954106420) SP GRAVITY (test code = 1.003-1.030 1908732660) GLU U QUAL (test code = Normal Normal 8227053134) BLOOD (test code = Negative Negative INTERFERE NCE FROM 1656264184) ASCORBIC ACID M AY CAUSE FALSE NEG ATIVE RESULT KETONES (test code = 5 mg/dL Negative A 8119922263) PROTEIN (test code = Negative Negative 2887-8) UROBILIN (test code = Normal Normal 8771425408) BILIRUBIN (test code = Negative Negative 8953896551) NITRITE (test code = Negative Negative 0827093952) LEUK HUGO (test code = Negative Negative 0084617591) RBC/HPF (test code = See_Comment [Autom ated message] 3457146320) The system [employer] [address] generated this result transmitted ref erence range: 0 - 3 HP F. The reference range was not used to int erpret this result as normal/abnormal . WBC/HPF (test code = See_Comment [Autom ated message] 5064104969) The system [address] generated this result transmitted ref erence range: 0 - 5 HP F. The reference range was not used to int erpret this result as normal/abnormal . BACTERIA (test code = Few Negative A 8900371167) MUCOUS (test code = Slight Negative LPF A 8015139863) Lab Interpretation (test Abnormal code = 81281-4) [facility] [id number] 09:57:00 Test Item Value Reference Range Interpretation Comments TROPONIN I (test <0.012 See_Comment [Automated code = 4919548953) message] The system which generated this result [...] ? Lab Interpretation Normal (test code = 31520-9) [facility] (NA, K, CL, CO2, GLUCOSE, BUN, CREATININE, CA)2020-09-03 09:45:00 Test Item Value Reference Range Interpretation Comments NA (test code = 141 mmol/L 135-145 5335763095) K (test code = 4.5 mmol/L 3.5-5 8866737964) CL (test code = 112 mmol/L 98-108 H 6942446640) CO2 TOTAL (test code = 18 mmol/L 23-31 L 7553651717) AGAP (test code = 2-16 9160932998) BUN (test code = 29 mg/dL 7-23 H 0565023869) GLUCOSE (test code = 167 mg/dL 70-110 H 0831569215) CREATININE (test code = 1.10 mg/dL 0.6-1.25 8263300744) CALCIUM (test code = 8.8 mg/dL 8.6-10.6 1679484606) eGFR Calculation mL/min/1.73m2 (Non-) (test code = 9338568406) eGFR Calculation mL/min/1.73m2 () (test code = 2032150655) BE (test code = BE) Association of [...] tests). Lab Interpretation Abnormal (test code = 41150-0) [facility] (ALB, T.PRO, BILI T, BU/BC, ALT, AST, ALK PHOS)2020-09-03 09:45:00 Test Item Value Reference Range Interpretation Comments TOTAL BILI (test code = 9344259690) 1.0 mg/dL 0.1-1.1 BILI UNCON (test code = 4875826546) 0.8 mg/dL 0.1-1.1 BILI CONJ (test code = 9905159492) 0.0 mg/dL 0-0.3 T PROTEIN (test code = 8130611377) 7.3 g/dL 6.3-8.2 ALBUMIN (test code = 7044760146) 4.2 g/dL 3.5-5 ALK PHOS (test code = 3899749985) 82 U/L 34-122 ALTv (test code = 1742-6) 29 U/L 5-50 AST(SGOT) (test code = 6544514797) 45 U/L 13-40 H Lab Interpretation (test code = Abnormal 35216-5) [facility] Center[facility] [id number] 09:45:00 Test Item Value Reference Range Interpretation Comments LIPASE (test code = 2613550093) 14 U/L 0-220 Lab Interpretation (test code = Normal 44324-6) [facility] Center[facility] with [id number] 09:32:00 Test Item Value Reference Range Interpretation Comments WBC (test code = See_Comment [Automated 0170-2) message] The sy stem which generated this result transmitted reference range : 4.20 - 10.70 10*3/?L. The reference range was not used to interpret this result as normal/abnormal . RBC (test code = See_Comment [Automated 105-8) message] The sy stem which generated this [...] RDW-SD (test code = 50.6 fL 38.5-51.6 87849-0) RDW-CV (test code = 14.4 % 12.1-15.4 788-0) PLT (test code = See_Comment [Automated 777-3) message] The sy stem which generated this result transmitted reference range : 150 - 328 10*3/ ?L. The reference r tran was not used to interpret this result as normal/abnormal . MPV (test code = 9.6 fL 9.8-13 L 82779-2) NRBC/100 WBC (test See_Comment [Automat ed code = 6769715236) message] The system which generated this result transmitted reference range : 0.0 - 10.0 /100 WBCs. The refer ence range was not u sed to interpret th is result as normal/abnormal . NRBC x10^3 (test code <0.01 See_Comment [Auto mated = 9578796491) message] The s ystem which generated this result transmitted reference range : 10*3/?L. The reference range was not used to interpret this result as normal/abnormal . GRAN MAT (NEUT) % 84.4 % (test code = 770-8) IMM GRAN % (test code 0.50 % = 4759427099) LYMPH % (test code = 9.9 % 736-9) MONO % (test code = 4.4 % 5905-5) EOS % (test code = 0.6 % 713-8) BASO % (test code = 0.2 % 706-2) GRAN MAT x10^3(ANC) 7.36 10*3/uL 1.99-6.95 H (test code = 2858087907) IMM GRAN x10^3 (test 0.04 10*3/uL 0-0.06 code = 3520690753) LYMPH x10^3 (test code 0.86 10*3/uL 1.09-3.23 L = 731-0) MONO x10^3 (test code 0.38 10*3/uL 0.36-1.02 = 742-7) EOS x10^3 (test code = 0.05 10*3/uL 0.06-0.53 L 711-2) BASO x10^3 (test code <0.03 0.01-0.09 = 704-7) Lab Interpretation Abnormal (test code = 61967-4) [facility]"
[2023-01-14] MEDS ORDERED: TETRACAINE HCL 0.5% 4ML OPTH ONE (21:54)
[2023-01-14] MEDS ORDERED: NA CHLORIDE 0.9% 500 ML ONE (21:54)
--- NOTE | 2023-01-14 21:54 | ER ---
Nurse's Notes [facility] Name: Cristóbal Palm Age: 72 yrs Sex: Male : 1950 Arrival Date: 01/14/2023 Time: 20:49 Bed 8 Private MD: Diagnosis: Corneal abrasion, foreign body sensation left eye Presentation: 01/14 21:25 Chief complaint: Patient states: "I noticed that I got something in my left eye. I keep mb9 putting drops in my eyes thinking it was allergies but its not helping". Coronavirus screen: Vaccine status: Patient reports receiving the 2nd dose of the covid vaccine. Ebola Screen: No symptoms or risks identified at this time. Initial Sepsis Screen: Does the patient meet any 2 criteria? No. Patient's initial sepsis screen is negative. Does the patient have a suspected source of infection? No. Patient's initial sepsis screen is negative. Risk Assessment: Do you want to hurt yourself or someone else? Patient reports no desire to harm self or others. Onset of symptoms was January 14, 2023. 21:25 Method Of Arrival: Ambulatory mb9 21:25 Acuity: LINDA 4 mb9 Triage Assessment: 21:28 General: Appears in no apparent distress. Behavior is cooperative. Pain: Complains of mb9 pain in left eye. EENT:. EENT: left eye reddened . Neuro: Level of Consciousness is awake, alert, obeys commands. Derm: Skin is pink, warm \\T\\ dry. Musculoskeletal: Range of motion: intact in all extremities. Historical: - Allergies: 21:27 No Known Allergies; mb9 - Home Meds: 21:27 Metformin Oral [Active]; atorvastatin oral [Active]; Lisinopril Oral [Active]; mb9 - PMHx: 21:27 High Cholesterol; Hypertension; Prostate Cancer; mb9 - Immunization history:: Adult Immunizations up to date. - Social history:: Smoking status: Patient denies any tobacco usage or history of. Screenin:33 [facility] ED Fall Risk Assessment (Adult) History of falling in the last 3 months, kd3 including since admission No falls in past 3 months (0 pts). Abuse screen: Denies threats or abuse. Denies injuries from another. Nutritional screening: No deficits noted. Tuberculosis screening: No symptoms or risk factors identified. Vital Signs: 21:25 BP 112 / 78; Pulse 66; Resp 16; Temp 98(O); Pulse Ox 100% ; Weight 92.99 kg; Height 5 mb9 ft. 6 in. ; 21:25 Body Mass Index 33.09 (92.99 kg, 167.64 cm) 9 ED Course: 20:52 Patient arrived in ED. kj1 20:53 Dinh Bustos MD is Attending Physician. sp3 21:25 Arm band placed on. mb9 21:27 Triage completed. mb9 21:43 Deirdre Engel RN is Primary Nurse. vc1 21:53 Jerri Villa MD is Referral Physician. sp3 22:33 Patient has correct armband on for positive identification. kd3 22:33 No provider procedures requiring assistance completed. Patient did not have IV access kd3 during this emergency room visit. Administered Medications: 21:50 Drug: Tetracaine Ophthalmic Drops 0.5 % 3 drops Route: Ophthalmic; Site: left eye; vc1 Medication: 22:33 VIS not applicable for this client. kd3 Outcome: 21:54 Discharge ordered by . sp3 22:33 Discharged to home ambulatory. kd3 22:33 Condition: stable 22:33 Discharge instructions given to patient, Instructed on discharge instructions, follow up and referral plans. Demonstrated understanding of instructions, follow-up care. 22:33 Patient left the ED. kd3 Signatures: Ijeoma Trujillo kj1 Dinh Bustos MD MD sp3 Shira Oneil RN RN kd3 Deirdre Engel RN RN 1 Prema Sutherland RN RN mb9
--- NOTE | 2023-01-14 21:55 | EDPHYS ---
Physician Documentation [facility] Name: Cristóbal Palm Age: 72 yrs Sex: Male : 1950 Arrival Date: 01/14/2023 Time: 20:49 Bed 8 Private MD: ED Physician Dinh Bustos HPI: 01/14 21:49 This 72 yrs old Male presents to ER via Ambulatory with complaints of Eye Problem. 3 21:49 72-year-old male with hyperlipidemia, hypertension, prostate cancer now presents to the [facility] ED with chief complaint foreign body sensation in the left eye that started earlier today. Patient states that he "may have gotten something in it" and has placed "allergy drops" in his left eye which have not helped. No other symptoms noted. Vision has not been impaired. Patient denies headache, neck pain, fever, chest pain, back pain, shortness of breath, facial pain, syncope, near syncope, focal neurodeficit, or any other signs or symptoms on ROS at this time.. Historical: - Allergies: 21:27 No Known Allergies; mb9 - Home Meds: 21:27 Metformin Oral [Active]; atorvastatin oral [Active]; Lisinopril Oral [Active]; mb9 - PMHx: 21:27 High Cholesterol; Hypertension; Prostate Cancer; mb9 - Immunization history:: Adult Immunizations up to date. - Social history:: Smoking status: Patient denies any tobacco usage or history of. ROS: 21:49 Constitutional: Negative for fever, chills, and weight loss, ENT: Negative for injury, sp3 pain, and discharge, Neck: Negative for injury, pain, and swelling, Cardiovascular: Negative for chest pain, palpitations, and edema, Respiratory: Negative for shortness of breath, cough, wheezing, and pleuritic chest pain, Abdomen/GI: Negative for abdominal pain, nausea, vomiting, diarrhea, and constipation, Back: Negative for injury and pain, MS/Extremity: Negative for injury and deformity, Skin: Negative for injury, rash, and discoloration, Neuro: Negative for headache, weakness, numbness, tingling, and seizure, Psych: Negative for depression, anxiety, suicide ideation, homicidal ideation, and hallucinations, Allergy/Immunology: Negative for hives, rash, and allergies, Endocrine: Negative for neck swelling, polydipsia, polyuria, polyphagia, and marked weight changes. 21:49 All other systems are negative. Exam: 21:51 Visual Acuity: Visual acuity is within normal limits. sp3 21:51 Constitutional: This is a well developed, well nourished patient who is awake, alert, and in no acute distress. Head/Face: Normocephalic, atraumatic. ENT: Nares patent. No nasal discharge, no septal abnormalities noted. External auditory canals are clear. Oropharynx with no redness, swelling, or masses, exudates, or evidence of obstruction, uvula midline. Mucous membranes moist. Neck: Trachea midline, no thyromegaly or masses palpated, and no cervical lymphadenopathy. Supple, full range of motion without nuchal rigidity, or vertebral point tenderness. No Meningismus. Chest/axilla: Normal chest wall appearance and motion. Nontender with no deformity. No lesions are appreciated. Cardiovascular: Regular rate and rhythm with a normal S1 and S2. No gallops, murmurs, or rubs. Normal PMI, no JVD. No pulse deficits. Respiratory: Lungs have equal breath sounds bilaterally, clear to auscultation and percussion. No rales, rhonchi or wheezes noted. No increased work of breathing, no retractions or nasal flaring. Skin: Warm, dry with normal turgor. Normal color with no rashes, no lesions, and no evidence of cellulitis. MS/ Extremity: Pulses equal, no cyanosis. Neurovascular intact. Full, normal range of motion. Neuro: Awake and alert, GCS 15, oriented to person, place, time, and situation. Cranial nerves II-XII grossly intact. Motor strength 5/5 in all extremities. Sensory grossly intact. Cerebellar exam normal. Normal gait. Psych: Awake, alert, with orientation to person, place and time. Behavior, mood, and affect are within normal limits. 21:51 Eyes: Slit-lamp not available. Grossly no foreign body visualized. Anterior chambers clear. Pupils equal round reactive to light.. Vital Signs: 21:25 BP 112 / 78; Pulse 66; Resp 16; Temp 98(O); Pulse Ox 100% ; Weight 92.99 kg; Height 5 mb9 ft. 6 in. ; 21:25 Body Mass Index 33.09 (92.99 kg, 167.64 cm) mb9 MDM: 21:41 Patient medically screened. sp3 21:52 Data reviewed: vital signs, nurses notes. ED course: Slit lamp not available here. We sp3 will irrigate his eyes with Johnathan lens and 500 mL of normal saline. 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 01/14 21:43 Order name: Pedro. Order: Johnathan Lens irrigation left eye with 500 mL NS; Complete Time: sp3 22:02 Administered Medications: 21:50 Drug: Tetracaine Ophthalmic Drops 0.5 % 3 drops Route: Ophthalmic; Site: left eye; vc1 Disposition Summary: 01/14/23 21:54 Discharge Ordered Location: Home sp3 Condition: Stable sp3 Diagnosis - Corneal abrasion, foreign body sensation left eye sp3 Followup: sp3 - With: Jerri Villa MD - When: Tomorrow - Reason: Continuance of care Discharge Instructions: - Discharge Summary Sheet sp3 - Corneal Abrasion sp3 Forms: - Medication Reconciliation Form sp3 - Thank You Letter sp3 - Antibiotic Education sp3 - Prescription Opioid Use sp3 Prescriptions: - Vigamox 0.5 % Ophthalmic Drops - instill 1 drop by OPHTHALMIC route every 8 hours for 7 days; 5 milliliter; sp3 Refills: 0, Product Selection Permitted Signatures: Dinh Bustos MD MD sp3 Deirdre Engel RN RN vc1 Prema Sutherland RN RN mb9
[2023-01-14 23:23] VITALS: BP 112/78; TEMP 98; O2SAT 100
== END 2023-01-14 22:33 | disposition home or self-care (01) ==
LOC: ER 20:49
DX: S05.02XA Injury of conjunctiva and corneal abrasion without foreign body, left eye, initial encounter (principal); I10 Essential (primary) hypertension; E78.00 Pure hypercholesterolemia, unspecified; Z85.46 Personal history of malignant neoplasm of prostate
CPT/HCPCS: J7040

== ENCOUNTER 2023-04-04 09:43 | Emergency (ER) | payer OTHER ==
--- OUTSIDE RECORDS SUMMARY | 2023-04-04 09:52 | XMS REPORT | Continuity of Care Document ---
:1950 Author Organization [facility] t Address [address] [facility]. [address] [place] [address] Care Team Providers Name Role Phone FARRUKH HERRERA Primary Care Physician Unavailable Christin Cole MD Attending Clinician Unavailable CHRISTIN COLE Attending Clinician Unavailable KELSEY YI Attending Clinician Unavailable CHRISTIN COLE Attending Clinician Unavailable LAB47 Attending Clinician Unavailable AYAH WILKES Attending Clinician Unavailable ALEJANDRO GARCIA Attending Clinician Unavailable MD BOAZ Attending Clinician Unavailable JOSUÉ TATE Attending Clinician Unavailable MELISSA LEYVA Attending Clinician Unavailable 39, HOLTER Attending Clinician Unavailable HARISH RODRIGUEZ Attending Clinician Unavailable LAB59 Attending Clinician Unavailable BRYNN SANCHEZ Attending Clinician Unavailable ROMMEL WALKER Attending Clinician Unavailable RELL SHEARER Attending Clinician Unavailable SYEDA MARTINI Attending Clinician Unavailable SUNG HERNANDEZ Attending Clinician Unavailable SINA LARES Attending Clinician Unavailable GUERITA STALEY Attending Clinician Unavailable LAB53 Attending Clinician Unavailable BELIA HAMMER Attending Clinician Unavailable LAB45 Attending Clinician Unavailable Brynn Mckeon Attending Clinician [phone] Alvino Millard MD Attending Clinician LUCY YUSUF Attending Clinician Unavailable DEMARCUS STACK Attending Clinician Unavailable ALEJANDRO GARCIA Attending Clinician Unavailable SWAB, FBMD COVID SELF Attending Clinician Unavailable [id number] Attending Clinician Unavailable LAB61 Attending Clinician Unavailable RADIOLOGY, DEPT Attending Clinician Unavailable VERÓNICA PASCUAL Attending Clinician Unavailable COVID-PFIZER BOOSTER, PARAMJIT Attending Clinician Unavailable [id number] Attending Clinician Unavailable Ayah Wilkes MD Attending Clinician Lilly Barba DO Attending Clinician LILLY BARBA Attending Clinician Unavailable LISBETH HASSAN Attending Clinician Unavailable CHRISTIN COLE Admitting Clinician Unavailable ALEJANDRO GARCIA Admitting Clinician Unavailable Payers Payer Name Policy Type Policy Number Effective Date Expiration Date Manoj goncalves KCA NIKOLSKI O 7 [id number] 2022 00:00:00 [facility] [id number] 2012 O 00:00:00 Problems Condition Condition Condition Status Onset Resolution Last Treating Co mments Source Name Details Category Date Date Treatment Clinician Date CAD CAD Disease Active [facility] ([facility] (coronary 7 Luke s artery artery 00:00: Medical disease) disease) 00 Center Coronary Coronary Disease Active Jamey paul artery artery 3-17 Assessmen Seybold disease disease 00:00: t & Plan: - involving involving 00 Formattin E xterna kaw kaw g of this l coronary coronary note artery of artery of might be kaw kaw different heart with heart with from the angina angina original. pectoris pectoris Controlle d Continue good bp control.C ontinue medicatio ns. Followed by cardiolog y SCA SCA Disease Active Sara 10/28/21: 10/28/: 3-17 Seybold IFR+ IFR+ 00:00: - (0.85) LAD (0.85) LAD 00 Ex terna lesion s/p lesion s/p l PCI with PCI with PEG PEG (Synergy (Synergy XD XD 3.5x38mm), 3.5x38mm), moderate moderate Lcx dz Lcx dz (IFR 0.95) (IFR 0.95) Coronary Coronary Disease Active Last Kelse y artery artery 3-17 Assessmen Seybold disease disease 00:00: t & Plan: - involving involving 00 Formattin E xterna kaw kaw g of this l coronary coronary note artery of artery of might be kaw kaw different heart with heart with from the [...] l n) n) Abnormal Abnormal Disease Active Eric y EKG EKG 6-16 Seybold 00:00: - 00 Externa l PVC [...] (chronic 01-01 Seybol d kidney kidney 00:00: - disease), disease), 00 Exte rna stage II stage II l Insomnia Insomnia Disease Active Last Milose y 6 Assesselizabeth Rivas 00:00: t & Plan: - 00 Formattin Externa g of this l note might be different from the original. Controlle d Continue medicatio n.Do not drive, drink alcohol, or operate heavy machinery while using this medicatio n. History of History of Disease Active 2014-08 K kirkbeverly prostate prostate 0 Seybol d cancer cancer 00:00: - 00 Externa l History of History of Disease Active Overview : Sara basal cell basal cell 1- Formattin Seybold cancer cancer 00:00: g of this - note Externa might be l different from the original. R malar cheek Rotator Rotator Disease Active [facility] cuff cuff [facility] (capsule) 00:00: [facility] paulette sprain sprain 00 Center Rotator Rotator Disease Active [facility] cuff tear, cuff tear, 8-13 Jeanine kes right right 00:00: Medical 00 Center Mixed Mixed Disease Active Jamey Ruiz hyperlipid hyperlipid 2 Assessmen ybcesar emia emia 00:00: t & Plan: - 00 Formattin Externa g of this l note might be different from the original. Controlle d.Continu e statin.Ch david lipid panel Hypertensi Hypertensi Disease Active Jamey Mathew elsebeverly ve heart ve heart 2- Assessmen Piero [...] Externa l Allergic Allergic Disease Active Overview: Ke lsey rhinitis, rhinitis, 09-30 Formattin S eybold cause cause 00:00: g of this - unspecifie unspecifie 00 note Ex sophie d d might be l different from the original. ICD-10Las t Assessmen t & Plan: Formattin g of this note might be different from the original. Controlle d Continue medicatio n Hypertensi Hypertensi Disease Active Last K elsey ve heart ve heart 09-30 Assessmen Piero child and renal and renal 00:00: t & Plan: - disease disease 00 Formattin Exter na with with g of this l congestive congestive note heart heart might be failure failure different from the original. Controlle d. Continue good bp control.C ontinue to monitor creatinin e. 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 Miguel butler Followed by urology Arthritis Arthritis Disease Active Overview: Sara Jackson Seybold g of this - note Externa might be l different from the original. multiple sites Allergies, Adverse Reactions, Alerts Allergy Allergy Status Severity Reaction(s) Onset Inactive Treating Comm ents Source Name Type Date Date Clinician NO KNOWN Drug Active Univers ALLERGIE Class ity of [facility] NO KNOWN Allergy Active SLE ALLERGIE S Social History Social Habit Start Date Stop Date Quantity Comments Source History SDOH Sara Seybo ld Alcohol Binge - External Gender identity Sarapiero rahman - External Sexual orientation Sara Rivas - External Alcohol intake 2023-03-30 2023-03-30 [facility] Alcohol Comment 2022-06-02 2022-06-02 social Sara josiah 00:00:00 00:00:00 - External Exposure to 2021-09-20 2021-10-20 Not sure Sara butler SARS-CoV-2 (event) 00:00:00 13:19:00 History of Social 2020-08-04 2020-08-04 Sara Rob function 00:00:00 00:00:00 - External History [facility] 2020-02-07 2020-02-07 4 Sara acevedo Alcohol Frequency 00:00:00 00:00:00 - Exter nal History [facility] 2020-02-07 2020-02-07 1 Sara acevedo Alcohol Std Drinks 00:00:00 00:00:00 - Exte rnal Tobacco use and 2014-04-05 2014-04-05 Sm[address] [facility] exposure 00[facility]00[facility]00 [facility]user [facility] Sex Assigned At [address] [facility] Jeanine kes 00:00:00 00:00:00 [facility] Smoking Status Start Date Stop Date Source Never smoked tobacco [facility] Medications Ordered Filled Start Stop Current Ordering Indication Dosage Frequency Signature Comments Components Source Medication Medication Date Date Medication? Clinician (SIG) Name Name atorvastati Yes 40mg QD Take [address] [facility] n (LIPITOR) 7-27 tablet (40 Jeanine kes 40 MG 18:33: mg total) Medical tablet 01 by mouth Center daily. multivitami Yes 1{tbl} QD Take [address] [facility] per 7-27 tablet by [facility] tablet 18:33: mouth Medical 01 daily. [place] diphenhydra Yes 1{tbl} QD Take [address] mine-acetam 7-27 tablet by Latha es inophen 18:33: mouth Medical (TYLENOL 01 daily. Center PM) 25-500 mg Tab carvediloL 2023-0 Yes 6.25mg Take [address] [facility] (COREG) 7-27 tablet [facility] 6.25 MG 18:33: (6.25 mg Medica l tablet 01 total) by Center mouth 2 (two) times daily with breakfast and dinner. lisinopriL 2023-0 Yes 5mg QD Take 1 [facility] (PRINIVIL,Z 7-27 tablet (5 Latha es ESTRIL) 5 18:33: mg total) Med ical MG tablet 01 by mouth Center daily. benzonatate 2023-0 Yes 200mg Take [address] (TESSALON) 7-27 mg by [facility] 200 MG 18:33: mouth 3 Medical capsule 01 (three) Center times daily as needed for Cough. loratadine 3-0 Yes 10mg Take 1 [facility] (CLARITIN) 7-27 tablet (10 Latha es 10 mg 18:33: mg total) Medical tablet 01 by mouth Center as needed. aspirin 81 3-0 Yes 81mg QD Take 1 [facility] MG chewable 7-27 tablet (81 Jeanine kes tablet 18:33: mg total) Medica l 01 by mouth Center daily. metFORMIN 3-0 2023- No 500mg Take [address] [facility] (GLUMETZA) 7-27 07-27 tablet [facility] 500 MG 14:38: 00:00 (500 mg Medical (MOD) 24 hr 08 :00 total) by [facility] ter tablet mouth daily with breakfast. oxybutynin 2023-0 Yes 10mg QD Take 1 [facility] (DITROPAN-X 7-24 tablet (10 Jeanine kes L) 10 MG 24 00:00: mg total) M edical hr tablet 00 by mouth Center daily. tamsulosin 2023-0 Yes .4mg QD Take 1 [facility] (FLOMAX) 7-24 capsule [facility] 0.4 mg Cap 00:00: (0.4 mg Medi paulette 24 hr 00 total) by Center capsule mouth daily. metFORMIN 2023-0 Yes 500mg QD Take 1 [facility] (GLUCOPHAGE 7-24 tablet [facility] -XR) 500 MG 00:00: (500 mg Med ical 24 hr 00 total) by Center tablet mouth daily. clopidogreL 2023-0 Yes 75mg QD Take [address] [facility] (PLAVIX) 75 7-22 tablet (75 Jeanine kes mg tablet 00:00: mg total) Med ical 00 by mouth Center daily. triamcinolo Yes 15g Q.5D Apply [address] ne 6-18 topically [facility] (KENALOG) 00:00: 2 (two) Medic al 0.1 % 00 times Center topical daily. cream Triamcinolo 2022- Yes [id number] Apply a Sara ne - 07-17 thin layer Seybold Acetonide 00:00: 04:59 up to two - 0.1 % apply 00 :00 times a Exter na externally day to the l Cream affected area TRIMETHOPRI 2022- Yes [id number] 1{tbl} Take 1 Sara M-SULFAMETH 02-08- tablet by Se rahman OXAZOLE 00:00: 04:59 mouth 2 - (BACTRIM 00 :00 times Externa DS) 800-160 daily for l MG oral 7 days Tablet Multiple Yes Take by Sara Vitamins-Mi 6-02 mouth Seybold nerals 13:16: - (MULTIVITAM 00 Externa IN OR) l Aspirin 81 Yes 81mg Take 1 Kelse y MG oral 6-02 tablet (81 Seybol d Chewable 13:16: mg total) - Tablet 00 by mouth Externa daily l Clopidogrel Yes 75mg Take 1 Hien ey Bisulfate 6-02 tablet (75 Seyb old (PLAVIX) 75 00:00: mg total) - MG oral 00 by mouth Externa Tablet daily l Multiple Yes Take by Sara Vitamins-Mi 5-25 mouth Seybold nerals 14:38: - (MULTIVITAM 13 Externa IN OR) l Aspirin 81 Yes 81mg Take 1 Kelse y MG oral 5-25 tablet (81 Seybol d Chewable 14:38: mg total) - Tablet 13 by mouth Externa daily l traZODone Yes 100mg QD Take 2 [facility] (DESYREL) 5-21 tablets [facility] 50 MG 00:00: (100 mg Medical tablet 00 total) by Center mouth nightly. Multiple Yes Take by Sara Vitamins-Mi 5-04 mouth Seybold nerals 09:59: - (MULTIVITAM 03 Externa IN OR) l Aspirin 81 2022-0 Yes 81mg Take 1 Kelse y MG oral 5-04 tablet (81 Seybol d Chewable 09:59: mg total) - Tablet 03 by mouth Externa daily l Atorvastati 2022-0 Yes [id number] TAKE 1 Sara n Calcium 5-01 TABLET(40 Seybo ld 40 MG oral 00:00: MG) BY - Tablet 00 MOUTH Externa DAILY FOR l CHOLESTERO L Carvedilol 2022-0 Yes [id number] 6.25mg Take 1 Sara 6.25 MG 5-01 tablet Seybold oral Tablet 00:00: (6.25 mg - 00 total) by Externa mouth 2 l times daily Lisinopril 2022-0 Yes [id number] 5mg Take 1 K elsey 5 MG oral 5-01 tablet (5 Seybo ld Tablet 00:00: mg total) - 00 by mouth Externa daily l Tamsulosin 2022-0 Yes [id number] .4mg Take 1 Sara HCl 0.4 MG 5-01 capsule Seybol d oral 00:00: (0.4 mg - Capsule 00 total) by Externa mouth l daily Trazodone 2022-0 Yes [id number] 100mg Take 2 Sara HCl 50 MG 5-01 tablets Seybold oral Tablet 00:00: (100 mg - 00 total) by Externa mouth l every day at 5:00 PM Oxybutynin 2022-0 Yes [id number] 10mg Take 1 Sara Chloride 10 5-01 tablet (10 Se ybold MG oral 00:00: mg total) - TABLET SR 00 by mouth Dock[employer] a 24 HR daily l Metformin 2022-0 Yes [id number] 500mg Take 1 Sara HCl ER 500 5-01 tablet Seybold MG oral 00:00: (500 mg - TABLET SR 00 total) by Exter na 24 HR mouth l daily (with breakfast) Atorvastati 2022-0 Yes [id number] TAKE 1 Sara n Calcium 5-01 TABLET(40 Seybo ld 40 MG oral 00:00: MG) BY - Tablet 00 MOUTH Externa DAILY FOR l CHOLESTERO L Carvedilol 2022-0 Yes [id number] 6.25mg Take 1 Sara 6.25 MG 5-01 tablet Seybold oral Tablet 00:00: (6.25 mg - 00 total) by Externa mouth 2 l times daily Lisinopril 2022-0 Yes [id number] 5mg Take 1 K elsey 5 MG oral 5-01 tablet (5 Seybo ld Tablet 00:00: mg total) - 00 by mouth Externa daily l Tamsulosin 2022-0 Yes [id number] .4mg Take 1 Sara HCl 0.4 MG 5-01 capsule Seybol d oral 00:00: (0.4 mg - Capsule 00 total) by Externa mouth l daily Trazodone 2022-0 Yes [id number] 100mg Take 2 Sara HCl 50 MG 5-01 tablets Seybold oral Tablet 00:00: (100 mg - 00 total) by Externa mouth l every day at 5:00 PM Oxybutynin 2022-0 Yes [id number] 10mg Take 1 Sara Chloride 10 5-01 tablet (10 Se ybold MG oral 00:00: mg total) - TABLET SR 00 by mouth Dock[employer] a 24 HR daily l Metformin 2022-0 Yes [id number] 500mg Take 1 Sara HCl ER 500 5-01 tablet Seybold MG oral 00:00: (500 mg - TABLET SR 00 total) by Exter na 24 HR mouth l daily (with breakfast) Atorvastati 2022-0 Yes [id number] TAKE 1 Sara n Calcium 5-01 TABLET(40 Seybo ld 40 MG oral 00:00: MG) BY - Tablet 00 MOUTH Externa DAILY FOR l CHOLESTERO L Carvedilol 2022-0 Yes [id number] 6.25mg Take 1 Sara 6.25 MG 5-01 tablet Seybold oral Tablet 00:00: (6.25 mg - 00 total) by Externa mouth 2 l times daily Lisinopril 2022-0 Yes [id number] 5mg Take 1 K elsey 5 MG oral 5-01 tablet (5 Seybo ld Tablet 00:00: mg total) - 00 by mouth Externa daily l Tamsulosin 2022-0 Yes [id number] .4mg Take 1 Sara HCl 0.4 MG 5-01 capsule Seybol d oral 00:00: (0.4 mg - Capsule 00 total) by Externa mouth l daily Trazodone 2022-0 Yes [id number] 100mg Take 2 Sara HCl 50 MG 5-01 tablets Seybold oral Tablet 00:00: (100 mg - 00 total) by Externa mouth l every day at 5:00 PM Oxybutynin Yes [id number] 10mg Take 1 Sara Chloride 10 5-01 tablet (10 Se ybold MG oral 00:00: mg total) - TABLET SR 00 by mouth [employer] a 24 HR daily l Metformin Yes [id number] 500mg Take 1 Sara HCl ER 500 5-01 tablet Seybold MG oral 00:00: (500 mg - TABLET SR 00 total) by Exter na 24 HR mouth l daily (with breakfast) Methylpredn 2021-08- No [id number] 80mg Sara isolone -07-25 Seybold Acetate 19:45: 19:42 - (Depo-Medro 00 :00 Externa l) [40 l mg/mL] - Physician Administere d (J1030) Methylpredn 2021-08- No [id number] 80mg 80 mg, Sara isolone 09-25 Physician Seybol d Acetate 19:45: 19:42 Administer - (Depo-Medro 00 :00 ed, ONCE, Ext juan l) [40 1 dose, On l mg/mL] - Formerly [facility] Physician 07/25/22 at Administere 1345 d (J1030) Multiple 2021-08 Yes Take by Sara Vitamins-Mi - mouth Seybold nerals 13:30: - (MULTIVITAM 57 Externa IN OR) l Aspirin 81 2021-08 Yes 81mg Take 81 mg K elsey MG oral -02 by mouth Seybold Chewable 13:30: daily - Tablet 57 Externa l Multiple 2021-08 Yes Take by Sara Vitamins-Mi 2- mouth Seybold nerals 09:49: - (MULTIVITAM 33 Externa IN OR) l Aspirin 81 2021-08 Yes 81mg Take 81 mg K elsey MG oral 2-01 by mouth Seybold Chewable 09:49: daily - Tablet 33 Externa l Oxybutynin 2021-08 Yes [id number] TAKE 1 Sara Chloride 10 1-29 TABLET BY Sey bold MG oral 00:00: MOUTH - TABLET SR 00 EVERY DAY Exter na 24 HR l Oxybutynin 2021-08 Yes [id number] TAKE 1 Sara Chloride 10 1-29 TABLET BY Sey bold MG oral 00:00: MOUTH - TABLET SR 00 EVERY DAY Exter na 24 HR l Carvedilol 2021-08 Yes [id number] TAKE 1 K elsey 6.25 MG 1-28 TABLET BY Seybold oral Tablet 00:00: MOUTH 2 - 00 TIMES Externa DAILY. l Atorvastati 2021-08 Yes [id number] TAKE 1 Sara n Calcium 1-28 TABLET(40 Seybo ld 40 MG oral 00:00: MG) BY - Tablet 00 MOUTH Externa DAILY FOR l CHOLESTERO L Carvedilol 2021-08 Yes [id number] TAKE 1 K elsey 6.25 MG 1-28 TABLET BY Seybold oral Tablet 00:00: MOUTH 2 - 00 TIMES Externa DAILY. l Atorvastati 2021-08 Yes [id number] TAKE 1 Sara n Calcium 1-28 TABLET(40 [...] No 1g Take 10 mL Sara (Carafate) 1-17 07-25 (1 g Seybold 1 GM/10ML 00:00: 05:59 total) by - oral 00 :00 mouth 4 Externa Suspension times l daily for 14 days Tamsulosin 2021-08 Yes [id number] TAKE 1 Sara HCl 0.4 MG 1-01 CAPSULE BY Sey bold oral 00:00: MOUTH - Capsule 00 EVERY DAY Externa l Lisinopril 2021-08 Yes [id number] TAKE 1 K elsey 5 MG oral 1-01 TABLET BY Seybo ld Tablet 00:00: MOUTH - 00 EVERY DAY Externa l Tamsulosin 2021-08 Yes [id number] TAKE 1 Sara HCl 0.4 MG 1-01 CAPSULE BY Sey bold oral 00:00: MOUTH - Capsule 00 EVERY DAY Externa l Lisinopril 2021-08 Yes [id number] TAKE 1 K elsey 5 MG oral 1-01 TABLET BY Seybo ld Tablet 00:00: MOUTH - 00 EVERY DAY Externa l Multiple Yes Take by Sara Vitamins-Mi 9-27 mouth Seybold nerals 08:40: - (MULTIVITAM 41 Externa IN OR) l Omeprazole Yes 20mg Take 20 mg K elsey 20 MG oral 9-27 by mouth Seybo ld Tablet 08:40: daily - Delayed 41 Externa Response l Metformin Yes [id number] TAKE 1 K elsey HCl ER 500 9-19 TABLET BY Seyb old MG oral 00:00: MOUTH - TABLET SR 00 EVERY DAY Exter na 24 HR WITH l BREAKFAST Metformin Yes [id number] TAKE 1 K elsey HCl ER 500 9-19 TABLET BY Seyb old MG oral 00:00: MOUTH - TABLET SR 00 EVERY DAY Exter na 24 HR WITH l BREAKFAST Metformin 0 Yes [id number] TAKE 1 K elsey HCl ER 500 9-19 TABLET BY Seyb old MG oral 00:00: MOUTH - TABLET SR 00 EVERY DAY Exter na 24 HR WITH l BREAKFAST Trazodone Yes [id number] 100mg TAKE 2 Sara HCl 50 MG 9-09 TABLETS Seybold oral Tablet 00:00: (100 MG - 00 TOTAL) BY Externa MOUTH l EVERY DAY AT 5:00 PM Carvedilol Yes [id number] 6.25mg Take 1 Sara 6.25 MG 9-09 tablet Seybold oral Tablet 00:00: (6.25 mg - 00 total) by Externa mouth 2 l times daily Trazodone Yes [id number] 100mg TAKE 2 Sara HCl 50 MG 9-09 TABLETS Seybold oral Tablet 00:00: (100 MG - 00 TOTAL) BY Externa MOUTH l EVERY DAY AT 5:00 PM Trazodone Yes [id number] 100mg TAKE 2 Sara HCl 50 MG 9-09 TABLETS Seybold oral Tablet 00:00: (100 MG - 00 TOTAL) BY Externa MOUTH l EVERY DAY AT 5:00 PM Oxybutynin Yes [id number] TAKE 1 Sara Chloride 10 8-31 TABLET BY Sey bold MG oral 00:00: MOUTH - TABLET SR 00 EVERY DAY Exter na 24 HR l Lisinopril Yes [id number] TAKE 1 K elsey 5 MG oral 8-16 TABLET BY Seybo ld Tablet 00:00: MOUTH - 00 EVERY DAY Externa l Tamsulosin Yes [id number] TAKE 1 Sara HCl 0.4 MG 8-16 CAPSULE BY Sey bold oral 00:00: MOUTH - Capsule 00 EVERY DAY Externa l Multiple Yes Take by Sara Vitamins-Mi 6-02 [...] 09:34: daily Delayed 54 Response Trimix Yes [id number] .05mL Inject Milo sey Regular 6-02 0.05 mL in Seybol d Strength 00:00: the penis (Papaverine 00 as 30 directed mg/Phentola mine 1 mg/Prostagl andin 10 mcg per 1 mL) Trimix Yes [id number] .05mL Inject Milo sey Regular 6-02 0.05 mL in Seybol d Strength 00:00: the penis (Papaverine 00 as 30 directed mg/Phentola mine 1 mg/Prostagl andin 10 mcg per 1 mL) Atorvastati Yes [id number] TAKE 1 Sara n Calcium 6-02 TABLET(40 Seybo ld 40 MG oral 00:00: MG) BY Tablet 00 MOUTH DAILY FOR CHOLESTERO L Trazodone Yes [id number] 100mg Take 2 Sara HCl 50 MG 6-02 tablets Seybold oral Tablet 00:00: (100 mg 00 total) by mouth every day at 5:00 PM Trimix Yes [id number] .05mL Inject Milo sey Regular 6-02 0.05 mL in Seybol d Strength 00:00: the penis - (Papaverine 00 as Externa 30 directed l mg/Phentola mine 1 mg/Prostagl andin 10 mcg per 1 mL) Atorvastati Yes [id number] TAKE 1 Sara n Calcium 6-02 TABLET(40 Seybo ld 40 MG oral 00:00: MG) BY - Tablet 00 MOUTH Externa DAILY FOR l CHOLESTERO L Trimix Yes [id number] .05mL Inject Milo sey Regular 6-02 0.05 mL in Seybol d Strength 00:00: the penis - (Papaverine 00 as Externa 30 directed l mg/Phentola mine 1 mg/Prostagl andin 10 mcg per 1 mL) Trimix Yes [id number] .05mL Inject Milo sey Regular 6-02 0.05 mL in Seybol d Strength 00:00: the penis - (Papaverine 00 as Externa 30 directed l mg/Phentola mine 1 mg/Prostagl andin 10 mcg per 1 mL) Trimix Yes [id number] .05mL Inject Milo sey Regular 6-02 0.05 mL in Seybol d Strength 00:00: the penis - (Papaverine 00 as Externa 30 directed l mg/Phentola mine 1 mg/Prostagl andin 10 mcg per 1 mL) Trimix 0 Yes [id number] .05mL Inject Milo sey Regular 6-02 0.05 mL in Seybol d Strength 00:00: the penis - (Papaverine 00 as Externa 30 directed l mg/Phentola mine 1 mg/Prostagl andin 10 mcg per 1 mL) Trimix 0 Yes [id number] .05mL Inject Milo sey Regular 6-02 0.05 mL in Seybol d Strength 00:00: the penis - (Papaverine 00 as Externa 30 directed l mg/Phentola mine 1 mg/Prostagl andin 10 mcg per 1 mL) Trimix 2021- No [id number] .05mL Inject Ke geetaey Regular 6-02 06-02 0.05 mL in Seybo ld Strength 00:00: 00:00 the penis (Papaverine 00 :00 as 30 directed mg/Phentola mine 1 mg/Prostagl andin 10 mcg per 1 mL) Carvedilol 2021-0 Yes [id number] TAKE 1 K elsey 6.25 MG 4-09 TABLET BY Seybold oral Tablet 00:00: MOUTH 00 TWICE DAILY Carvedilol 2021-0 Yes [id number] TAKE 1 K elsey 6.25 MG 4-09 TABLET BY Seybold oral Tablet 00:00: MOUTH 00 TWICE DAILY Oxybutynin 2021-0 Yes [id number] TAKE 1 Sara Chloride 10 4-04 TABLET BY Sey bold MG oral 00:00: MOUTH TABLET SR 00 EVERY DAY 24 HR Tamsulosin 2021-0 Yes [id number] TAKE 1 Sara HCl 0.4 MG 4-04 CAPSULE BY Sey bold oral 00:00: MOUTH Capsule 00 EVERY DAY Benzonatate 2021-0 Yes [id number] 200mg Q.[id number] Take 1 Sara 200 MG oral 4-04 [id number] capsule Seybold Capsule 00:00: 3D (200 mg 00 total) by mouth 3 times daily as needed for cough Oxybutynin 2021-0 Yes [id number] TAKE 1 Sara Chloride 10 4-04 TABLET BY Sey bold MG oral 00:00: MOUTH TABLET SR 00 EVERY DAY 24 HR Tamsulosin 0 Yes [id number] TAKE 1 Sara HCl 0.4 MG 4-04 CAPSULE BY Sey bold oral 00:00: MOUTH Capsule 00 EVERY DAY Benzonatate 2021-0 Yes [id number] 200mg Q.[id number] Take 1 Sara 200 MG oral 4-04 [id number] capsule Seybold Capsule 00:00: 3D (200 mg 00 total) by mouth 3 times daily as needed for cough Multiple 2021-0 Yes Take by Sara Vitamins-Mi 3-19 mouth Seybold nerals 08:55: (MULTIVITAM 38 IN OR) Omeprazole Yes 20mg Take 20 mg K elsey 20 MG oral 3-19 by mouth Seybo ld Tablet 08:55: daily Delayed 38 Response Benzonatate 0 Yes [id number] 200mg Q.[id number] Take 1 Sara 200 MG oral 3-16 [id number] capsule Seybold Capsule 00:00: 3D (200 mg 00 total) by mouth 3 times daily as needed for cough Lisinopril 2021-0 Yes [id number] TAKE 1 K elsey 5 MG oral 3-10 TABLET BY Seybo ld Tablet 00:00: MOUTH 00 EVERY DAY Lisinopril 2021-0 Yes [id number] TAKE 1 K elsey 5 MG oral 3-10 TABLET BY Seybo ld Tablet 00:00: MOUTH 00 EVERY DAY Lisinopril 2021-0 Yes [id number] TAKE 1 K elsey 5 MG oral 3-10 TABLET BY Seybo ld Tablet 00:00: MOUTH 00 EVERY DAY clopidogreL 2021-0 2022- No 75mg QD Take [address] [facility] (PLAVIX) 75 10-29-08 tablet (75 L ukes mg tablet 00:00: 23:59 mg total) Me dical 00 :00 by mouth Center daily. aspirin 81 2021-2022- No 81mg QD Take [address] [facility] MG EC -03 26-08 tablet (81 [facility] tablet 00:00: 23:59 mg total) Medic al 00 :00 by mouth Center daily. clopidogreL 2021-0 2022- No 75mg QD Take [address] [facility] (PLAVIX) 75 10-29-08 tablet (75 L ukes mg tablet 00:00: 23:59 mg total) Me dical 00 :00 by mouth Center daily. aspirin 81 0 3- No 81mg QD Take [address] [facility] MG EC 3-08 03-08 tablet (81 [facility] tablet 00:00: 23:59 mg total) Medic al 00 :00 by mouth Center daily. atorvastati 0 Yes 40mg QD Take [address] n (LIPITOR) 3-07 by mouth Luke s 40 MG 20:18: daily. Medical tablet 24 [place] multivitami 0 Yes 1{tbl} QD Take [address] n 3-07 tablet by [facility] (MULTIVITAM 20:18: mouth Medic al [place]) per [...] times daily with breakfast and dinner. lisinopriL 0 Yes 5mg QD Take [address] (PRINIVIL,Z 3-07 by mouth Luke s ESTRIL) 5 20:18: daily. Medica l MG tablet 24 Center metFORMIN 0 Yes 500mg Take [address] [facility] (GLUMETZA) 3-07 mg by [facility] MG 20:18: mouth Medical (MOD) 24 hr 24 daily with Ce nter tablet breakfast. benzonatate 0 Yes 200mg Take [address] (TESSALON) 3-07 mg by [facility] 200 MG 20:18: mouth 3 Medical capsule 24 (three) Center times daily as needed for Cough. loratadine 0 Yes 10mg QD Take [address] (CLARITIN) 3-07 by mouth [facility] 10 mg 20:18: daily. Medical tablet 24 [place] Clopidogrel 0 Yes 75mg Take 75 mg Sara Bisulfate 3-07 by mouth Seybol d (Plavix) 75 00:00: daily MG oral 00 Tablet Clopidogrel 0 Yes 75mg Take 75 mg Sara Bisulfate [...] Tablet 00 by mouth Externa daily l Clopidogrel 2021-0 Yes 75mg Take 1 Hien ey Bisulfate 3-07 tablet (75 Seyb old 75 MG oral 00:00: mg total) - Tablet 00 by mouth Externa daily l Atorvastati 2020-08 Yes [id number] TAKE 1 Sara n Calcium 2-30 TABLET(40 Seybo ld 40 MG oral 00:00: MG) BY Tablet 00 MOUTH DAILY FOR CHOLESTERO L Carvedilol 2020-08 Yes [id number] TAKE 1 K elsey 6.25 MG 2-30 TABLET BY Seybold oral Tablet 00:00: MOUTH 00 TWICE DAILY Trazodone 2020-08 Yes [id number] TAKE 1 K elsey HCl 50 MG 2-30 TABLET BY Seybo ld oral Tablet 00:00: MOUTH 00 EVERY EVENING Atorvastati 2020-08 Yes [id number] TAKE 1 Sara n Calcium 2-30 TABLET(40 Seybo ld 40 MG oral 00:00: MG) BY Tablet 00 MOUTH DAILY FOR CHOLESTERO L Trazodone 2020-08 Yes [id number] TAKE 1 K elsey HCl 50 MG 2-30 TABLET BY Seybo ld oral Tablet 00:00: MOUTH 00 EVERY EVENING Atorvastati 2020-08- No [id number] TAKE 1 Sara n Calcium 2-30 06-02 TABLET(40 Seyb old 40 MG oral 00:00: 00:00 MG) BY Tablet 00 :00 MOUTH DAILY FOR CHOLESTERO L Trazodone 2020-082- No [id number] TAKE 1 Sara HCl 50 MG 2-30 06-02 TABLET BY Seyb old oral Tablet 00:00: 00:00 MOUTH 00 :00 EVERY EVENING Tamsulosin 2020-08 Yes [id number] TAKE 1 Sara HCl 0.4 MG 2-13 CAPSULE(0. Sey bold oral 00:00: 4 MG) BY Capsule 00 MOUTH DAILY Metformin 2020-08 Yes [id number] TAKE 1 K elsey HCl ER 500 2-07 TABLET BY Seyb old MG oral 00:00: MOUTH TABLET SR 00 EVERY DAY 24 HR WITH BREAKFAST Metformin 2020-08 Yes [id number] TAKE 1 K elsey HCl ER 500 2-07 TABLET BY Seyb old MG oral 00:00: MOUTH TABLET SR 00 EVERY DAY 24 HR WITH BREAKFAST Metformin 2020-08 Yes [id number] TAKE 1 K elsey HCl ER 500 [...] daily Delayed 05 Response Tamsulosin 2020-08 Yes [id number] .4mg Take 1 Sara HCl 0.4 MG 1-09 capsule Seybol d oral 00:00: (0.4 mg Capsule 00 total) by mouth daily Trazodone 2020-08 Yes [id number] TAKE 1 K elsey HCl 50 MG 0-13 TABLET BY Seybo ld oral Tablet 00:00: MOUTH 00 EVERY EVENING Carvedilol 2020-08 Yes [id number] TAKE 1 K elsey 6.25 MG 0-12 TABLET BY Seybold oral Tablet 00:00: MOUTH 00 TWICE DAILY Multiple 2020-08 Yes Take by Sara Vitamins-Mi 0-07 mouth Seybold nerals 14:14: (MULTIVITAM 18 IN OR) Omeprazole 2020-08 Yes 20mg Take 20 mg K elsey 20 MG oral 0-07 by mouth Seybo ld Tablet 14:14: daily Delayed 18 Response Amoxicillin 2020-08 Yes [id number] 1{tbl} Take 1 Sara -Pot 0-07 tablet by Seybold Clavulanate 00:00: mouth 2 (Augmentin) 00 times 875-125 MG daily oral Tablet Benzonatate 2020-08 Yes [id number] 200mg Q.[id number] Take 1 Sara 200 MG oral 0-07 [id number] capsule Seybold Capsule 00:00: 3D (200 mg 00 total) by mouth 3 times daily as needed for cough Benzonatate 2020-08 Yes [id number] 200mg Q.[id number] Take 1 Sara 200 MG oral 0-07 [id number] capsule Seybold Capsule 00:00: 3D (200 mg 00 total) by mouth 3 times daily as needed for cough Atorvastati 2020-08 Yes [id number] TAKE 1 Sara n Calcium 0-07 TABLET(40 Seybo ld 40 MG oral 00:00: MG) BY Tablet 00 MOUTH DAILY FOR CHOLESTERO L Amoxicillin 2020-08- No [id number] 1{tbl} Take 1 Sara -Pot 0-07 11-09 tablet by Seybold Clavulanate 00:00: 00:00 mouth 2 (Augmentin) 00 :00 times 875-125 MG daily oral Tablet Lisinopril Yes [id number] TAKE 1 K elsey 5 MG oral 8-25 TABLET BY Seybo ld Tablet 00:00: MOUTH 00 EVERY DAY Lisinopril 2020-0 Yes [id number] TAKE 1 K elsey 5 MG oral 8-25 TABLET BY Seybo ld Tablet 00:00: MOUTH 00 EVERY DAY Oxybutynin 2020-0 Yes [id number] TAKE 1 Sara Chloride 10 7-26 TABLET(10 Sey bold MG oral 00:00: MG) BY TABLET SR 00 MOUTH 24 HR DAILY Trazodone 2020-0 Yes [id number] TAKE 1 K elsey HCl 50 MG 7-26 TABLET BY Seybo ld oral Tablet 00:00: MOUTH 00 EVERY EVENING Oxybutynin 2020-0 Yes [id number] TAKE 1 Sara Chloride 10 7-26 TABLET(10 Sey bold MG oral 00:00: MG) BY TABLET SR 00 MOUTH 24 HR DAILY Carvedilol Yes [id number] TAKE 1 K elsey 6.25 MG 7-26 TABLET BY Seybold oral Tablet 00:00: MOUTH 00 TWICE DAILY Oxybutynin Yes [id number] TAKE 1 Sara Chloride 10 7-26 TABLET(10 Sey bold MG oral 00:00: MG) BY TABLET SR 00 MOUTH 24 HR DAILY Atorvastati 2020- No [id number] TAKE 1 Sara n Calcium 7-16 10-07 TABLET(40 Seyb old 40 MG oral 00:00: 00:00 MG) BY Tablet 00 :00 MOUTH DAILY FOR CHOLESTERO L Metformin Yes [id number] TAKE 1 K elsey HCl ER 500 5-24 TABLET BY Seyb old MG oral 00:00: MOUTH TABLET SR 00 EVERY DAY 24 HR WITH BREAKFAST Metformin Yes [id number] TAKE 1 K elsey HCl ER 500 5-24 TABLET BY Seyb old MG oral 00:00: MOUTH TABLET SR 00 EVERY DAY 24 HR WITH BREAKFAST NaCl 0.9% 2020- No 1000mL at 999 Uni vers (NS) bolus 09-03 mL/hr, ity of infusion 11:30: 12:44 1,000 mL, Jasson as 1,000 mL 00 :00 IV Medical Infusion, [place] ONCE, 1 dose, [facility] 09/03/20 at 0530, FRACISCO famotidine 2020- No 20mg 20 mg, [facility] (PEPCID 09-03 Slow IV ity of (PF)) 11:15: 10:01 Push, [place] injection 00 :00 ONCE, 1 Medical 20 mg dose, [facility] 09/03/20 at 0515, FRACISCO methylpredn 2020- No 125mg 125 mg, IV Univers isolone sod 09-03 Piggyback, i ty of succ 10:30: 09:25 ONCE, 1 [place] (SOLU-MEDRO 00 :00 dose, [facility] Med ical L) 09/03/20 at [place] injection 0430, STAT 125 mg NaCl 0.9% 2020- No 1000mL at 999 Uni vers (NS) bolus 09-03 mL/hr, ity of infusion 09:30: 11:27 1,000 mL, Jasson as 1,000 mL 00 :00 IV Medical Infusion, Branch ONCE, 1 dose, 09/03/20 at 0330, FRACISCO ondansetron Yes [id number] 4mg Take 1 Univers (ZOFRAN 1-11 tablet by ity of ODT) 4 mg 00:00: mouth [place] disintegrat 00 every 8 Medic al ing tablet (eight) Branch hours as needed for Nausea and Vomiting (N/V). predniSONE 2020- No [id number] 50mg Take 5 Univers 10 mg 1-06 24-16 tablets by ity of tablet 00:00: 05:59 mouth [place] 00 :00 daily for Medical 4 days. Branch Trimix Yes [id number] .05mL Inject Milo sey Regular 7-16 0.05 mL in Seybol d Strength 00:00: the penis (Papaverine 00 as 30 directed mg/Phentola mine 1 mg/Prostagl andin 10 mcg per 1 mL) Tamsulosin Yes [id number] .4mg Take 1 Sara HCl 0.4 MG 03-08 capsule Seybol d oral Cap 00:00: (0.4 mg 00 total) by mouth daily Trimix Yes [id number] .05mL Inject Milo sey Regular 7-16 0.05 mL in Seybol d Strength 00:00: the penis (Papaverine 00 as 30 directed mg/Phentola mine 1 mg/Prostagl andin 10 mcg per 1 mL) Trimix Yes [id number] .05mL Inject Milo sey Regular 7-16 0.05 mL in Seybol d Strength 00:00: the penis (Papaverine 00 as 30 directed mg/Phentola mine 1 mg/Prostagl andin 10 mcg per 1 mL) Trimix 2021- No [id number] .05mL Inject Ke lsey Regular 7-16 06-02 0.05 mL in Seybo ld Strength 00:00: 00:00 the penis (Papaverine 00 :00 as 30 directed mg/Phentola mine 1 mg/Prostagl andin 10 mcg per 1 mL) Tamsulosin 2020- No [id number] .4mg Take 1 Sara HCl 0.4 MG -16 11-09 capsule Seybo ld oral Cap 00:00: 00:00 [...] 00 daily nasal Suspension Loratadine 2019-0 Yes [id number] 1 tablet Sara (CLARITIN) 5-29 daily for Seyb old 10 MG oral 00:00: allergies tablet 00 Loratadine 2019-0 Yes [id number] 1 tablet Sara (CLARITIN) 5-29 daily for Seyb old 10 MG oral 00:00: allergies tablet 00 Loratadine 2019-0 Yes [id number] 1 tablet Sara (CLARITIN) 5-29 daily for Seyb old 10 MG oral 00:00: allergies tablet 00 Loratadine 2019-0 Yes [id number] 1 tablet Sara (CLARITIN) 5-29 daily for Seyb old 10 MG oral 00:00: allergies - tablet 00 Externa l Loratadine 2019-0 Yes [id number] 1 tablet Sara (CLARITIN) 5-29 daily for Seyb old 10 MG oral 00:00: allergies - tablet 00 Externa l Loratadine 2019-0 Yes [id number] 1 tablet Sara (CLARITIN) 5-29 daily for Seyb old 10 MG oral 00:00: allergies - tablet 00 Externa l Loratadine 2019-0 Yes [id number] 1 tablet Sara (CLARITIN) 5-29 daily for Seyb old 10 MG oral 00:00: allergies tablet 00 Loratadine 2019-0 Yes [id number] 1 tablet Sara (CLARITIN) 5-29 daily for Seyb old 10 MG oral 00:00: allergies - tablet 00 Externa l Loratadine 2019-0 Yes [id number] 1 tablet Sara (CLARITIN) 5-29 daily for Seyb old 10 MG oral 00:00: allergies - tablet 00 Externa l Loratadine 2019-0 Yes [id number] 1 tablet Sara (CLARITIN) 5-29 daily for Seyb old 10 MG oral 00:00: allergies - tablet 00 Externa l Loratadine 2019-0 Yes [id number] 1 tablet Sara (CLARITIN) 5-29 daily for Seyb old 10 MG oral 00:00: allergies tablet 00 Desoximetas 2018-0 Yes [id number] Apply Sara one 0.25 % 8-06 sparingly Seyb old apply 00:00: BID to externally 00 rash of Ointment arms/legs PRN flares only. Not for use on face, armpits or groin. Desoximetas Yes [id number] Apply Sara one 0.25 % 8-06 sparingly Seyb old apply 00:00: BID to externally 00 rash of Ointment arms/legs PRN flares only. Not for use on face, armpits or groin. Desoximetas Yes [id number] Apply Sara one 0.25 % 8-06 sparingly Seyb old apply 00:00: BID to externally 00 rash of Ointment arms/legs PRN flares only. Not for use on face, armpits or groin. Desoximetas Yes [id number] Apply Sara one 0.25 % 8-06 sparingly Seyb old apply 00:00: BID to - externally 00 rash of [employer] a Ointment arms/legs l PRN flares only. Not for use on face, armpits or groin. Desoximetas Yes [id number] Apply Sara one 0.25 % 8-06 sparingly Seyb old apply 00:00: BID to - externally 00 rash of [employer] a Ointment arms/legs l PRN flares only. Not for use on face, armpits or groin. Desoximetas Yes [id number] Apply Sara one 0.25 % 8-06 sparingly Seyb old apply 00:00: BID to - externally 00 rash of [employer] a Ointment arms/legs l PRN flares only. Not for use on face, armpits or groin. Desoximetas Yes [id number] Apply Sara one 0.25 % 8-06 sparingly Seyb old apply 00:00: BID to externally 00 rash of Ointment arms/legs PRN flares only. Not for use on face, armpits or groin. Desoximetas Yes [id number] Apply Sara one 0.25 % 8-06 sparingly Seyb old apply 00:00: BID to - externally 00 rash of [employer] a Ointment arms/legs l PRN flares only. Not for use on face, armpits or groin. Desoximetas Yes [id number] Apply Sara one 0.25 % 8-06 sparingly Seyb old apply 00:00: BID to - externally 00 rash of [employer] a Ointment arms/legs l PRN flares only. Not for use on face, armpits or groin. Desoximetas Yes [id number] Apply Sara one 0.25 % 8-06 sparingly Seyb old apply 00:00: BID to - externally 00 rash of [employer] a Ointment arms/legs l PRN flares only. Not for use on face, armpits or groin. Desoximetas Yes [id number] Apply Sara one 0.25 % 8-06 sparingly [...] N 6-21 mouth. ity of W-MINERALS/ 13:43: [place] [id number] Medical (CENTRUM Branch SILVER ORAL) aspirin 81 Yes 81mg Take 81 mg U nivers mg tablet 6-21 by mouth ity of 13:43: daily. [address] Branch meloxicam Yes 15mg Take 15 mg Un anna (MOBIC) 15 6-21 by mouth ity o f mg tablet 13:43: daily. [address] lovastatin Yes 20mg Take 20 mg U nivers (MEVACOR) 6-21 by mouth ity of 20 mg 13:43: at [place] tablet 57 [address] [facility] Immunizations Ordered Immunization Filled Immunization Date Status Commen ts Source Name Name Influenza Virus 2022-05-09 Completed Sara rahman Vaccine, High Dose, 00:00:00 - Ext ernal Age 65 And Up Influenza Virus 2022-05-09 Completed Sara rahman Vaccine, High Dose, 00:00:00 - Ext ernal Age 65 And Up Influenza Virus 2022-05-09 Completed Sara rahman Vaccine, High Dose, 00:00:00 - Ext ernal [...] Covid-19 Vaccine 2021-07-02 Completed Sara S eybold (Boticca), Mrna-lnp, 00:00:00 Lei Protein, Pf, 30mcg/0.3ml,IM Influenza Virus 2021-07-02 Completed Sara Se ybold Vaccine, 00:00:00 Quadrivalent, High Dose, Age 65 And Up Covid-19 Vaccine 2021-07-02 Completed Sara S eybold (Boticca), Mrna-lnp, 00:00:00 Lei Protein, Pf, 30mcg/0.3ml,IM Influenza Virus 2021-07-02 Completed Sara Se ybold Vaccine, 00:00:00 Quadrivalent, High Dose, Age 65 And Up Covid-19 Vaccine 2021-07-02 Completed Sara S eybold (Boticca), Mrna-lnp, 00:00:00 Lei Protein, Pf, 30mcg/0.3ml,IM Influenza Virus 2021-07-02 Completed Sara Se ybold Vaccine, 00:00:00 - External Quadrivalent, High Dose, Age 65 And Up Covid-19 Vaccine 2021-07-02 Completed Sara S eybold (Boticca), Mrna-lnp, 00:00:00 - Ext ernal Lei Protein, Pf, 30mcg/0.3ml,IM Influenza Virus 2021-07-02 Completed Sara Se ybold Vaccine, 00:00:00 - External Quadrivalent, High Dose, Age 65 And Up Covid-19 Vaccine 2021-07-02 Completed Sara S eybold (Boticca), Mrna-lnp, 00:00:00 - Ext ernal Lei Protein, Pf, 30mcg/0.3ml,IM Influenza Virus 2021-07-02 Completed Sara Se ybold Vaccine, 00:00:00 - External Quadrivalent, High Dose, Age 65 And Up Covid-19 Vaccine 2021-07-02 Completed Sara S eybold (Boticca), Mrna-lnp, 00:00:00 - Ext ernal Lei Protein, Pf, 30mcg/0.3ml,IM Influenza Virus 2021-07-02 Completed Sara Se ybold Vaccine, 00:00:00 - External Quadrivalent, High Dose, Age 65 And Up Covid-19 Vaccine 2021-07-02 Completed Sara S eybold (Boticca), Mrna-lnp, 00:00:00 - Ext ernal Lei Protein, Pf, 30mcg/0.3ml,IM Influenza Virus 2021-07-02 Completed Sara Se ybold Vaccine, 00:00:00 - External Quadrivalent, High Dose, Age 65 And Up Covid-19 Vaccine 2021-07-02 Completed Sara S eybold (Boticca), Mrna-lnp, 00:00:00 - Ext ernal Lei Protein, Pf, 30mcg/0.3ml,IM Influenza Virus 2021-07-02 Completed Sara Se ybold Vaccine, 00:00:00 - External Quadrivalent, High Dose, Age 65 And Up Covid-19 Vaccine 2021-07-02 Completed Sara S eybold (Boticca), Mrna-lnp, 00:00:00 - Ext ernal Lei Protein, Pf, 30mcg/0.3ml,IM Influenza Virus 2021-07-02 Completed Sara Se ybold Vaccine, 00:00:00 Quadrivalent, High Dose, Age 65 And Up Covid-19 Vaccine 2021-07-02 Completed Sara S eybold (Boticca), Mrna-lnp, 00:00:00 Lei Protein, Pf, 30mcg/0.3ml,IM Influenza [...] And Up Pneumococcal Vaccine, 2016-01-11 Completed Milo shoemakery Seybold Conjugate 13 00:00:00 Tdap- (Boostrix, 2016-01-11 Completed Sara woodld Adacel) 00:00:00 Pneumococcal Vaccine, 2016-01-11 Completed Milo [employer]emak[employer] Seybold Conjugate 13 00:00:00 Tdap- (Boostrix, 2016-01-11 [...] 2013-09-30 Completed Sara Seybol d (Zostavax) 00:00:00 Vital Signs Vital Name Observation Time Observation Value Comments Source HEIGHT 2023-03-19 09:05:00 167.6 cm WEIGHT 2023-03-19 09:05:00 94.802 kg HEIGHT 2023-03-19 09:05:00 167.6 cm WEIGHT 2023-03-19 09:05:00 94.802 kg Systolic blood 2022-12-25 15:02:00 104 mm[Hg] Sara Seybold - pressure External Diastolic blood 2022-12-25 15:02:00 62 mm[Hg] Milose y Seybold - pressure External Heart rate 2022-12-25 15:02:00 76 /min Sara S eybold - External Body temperature 2022-12-25 15:02:00 36.67 Clarita Hien ey Seybold - External Respiratory rate 2022-12-25 15:02:00 14 /min Hien ey Seybold - External Body height 2022-12-25 15:02:00 167.6 cm Sara S eybold - External Body weight 2022-12-25 15:02:00 [...] External BMI 2022-07-24 15:48:00 34.54 kg/m2 Sara S eybold - External Systolic blood 2022-05-20 13:45:00 126 mm[Hg] Sara Seybold - pressure External Diastolic blood 2022-05-20 13:45:00 72 mm[Hg] Eric y Seybold - pressure External Heart rate 2022-05-20 13:45:00 71 /min Sara S eybold - External Body temperature 2022-05-20 13:45:00 36.44 Clarita Hien ey Seybold - External Respiratory rate 2022-05-20 13:45:00 20 /min Hien ey Seybold - External Body height 2022-05-20 13:45:00 167.6 cm Sara S eybold - External Body weight 2022-05-20 13:45:00 97.07 kg Sara S eybold - External BMI 2022-05-20 13:45:00 34.54 kg/m2 Sara leonardobold - External Oxygen saturation in 2022-05-20 13:45:00 96 /min Sara Rivas - Arterial blood by External Pulse oximetry Systolic blood 2022-01-23 18:59:00 106 mm[Hg] Sara Seybold pressure Diastolic blood 2022-01-23 18:59:00 60 mm[Hg] Kelse y Seybold pressure Heart rate 2022-01-23 18:59:00 72 /min Sara S eybold Body temperature 2022-01-23 18:59:00 36.78 Clarita Hien ey Seybold Respiratory rate 2022-01-23 18:59:00 18 /min Hien ey Seybold Body height 2022-01-23 18:59:00 167.6 cm Sara Aranda eybold Body weight 2022-01-23 18:59:00 97.523 kg Sara Aranda eybold BMI 2022-01-23 18:59:00 34.70 kg/m2 Sara S eybold Systolic blood 2022-01-23 14:35:00 122 mm[Hg] Sara Seybold pressure Diastolic blood 2022-01-23 14:35:00 70 mm[Hg] Kelse y Seybold pressure Heart rate 2022-01-23 14:35:00 60 /min Sara Aranda eybold Body temperature 2022-01-23 14:35:00 36.67 Clarita Hien ey Seybold Respiratory rate 2022-01-23 14:35:00 16 /min Hien leonardo Seybold Body height 2022-01-23 14:35:00 167.6 cm Sara Aranda eybold Body weight 2022-01-23 14:35:00 97.523 kg aSra Aranda eybold BMI 2022-01-23 14:35:00 34.70 kg/m2 Sara Aranda eybold HEIGHT 2021-10-28 07:57:00 167.6 cm WEIGHT 2021-10-28 07:57:00 99.338 kg HEIGHT 2021-10-28 07:57:00 167.6 cm WEIGHT 2021-10-28 07:57:00 99.338 kg Systolic blood 2021-07-02 14:13:00 114 mm[Hg] Sara Seybold pressure Diastolic blood 2021-07-02 14:13:00 66 mm[Hg] Milose y Seybcesar pressure Heart rate 2021-07-02 14:13:00 68 /min Sara leonardobocurtis Body temperature 2021-07-02 14:13:00 36.67 Clarita Hien Rivas Respiratory rate 2021-07-02 14:13:00 16 /min Hien Rivas Body height 2021-07-02 14:13:00 167.6 cm Sara leonardobocurtis Body weight 2021-07-02 14:13:00 99.338 kg Sara leonardobocurtis BMI 2021-07-02 14:13:00 35.35 kg/m2 Sara noland Systolic blood 2020-09-03 12:45:00 119 mm[Hg] [facility] Diastolic blood 2020-09-03 12:45:00 74 mm[Hg] Unive rs[facility] Heart rate 2020-09-03 12:45:00 70 /min Universi ty [facility] Respiratory rate 2020-09-03 12:45:00 18 /min [facility] Oxygen saturation in 2020-09-03 12:45:00 98 /min [facility] blood by [facility] Pulse oximetry [place] Body temperature 2020-09-03 09:21:00 36.11 [facility] 2020-09-03 09:21:00 170.2 cm [facility] Body weight 2020-09-03 09:21:00 100.245 kg [facility] BMI 2020-09-03 09:21:00 34.61 kg/m2 [facility] Systolic blood 2023-03-19 18:06:00 101 mm[Hg] [facility] Diastolic blood 2023-03-19 18:06:00 61 mm[Hg] [facility] Heart rate 2023-03-19 18:06:00 58 /min [facility] Respiratory rate 2023-03-19 18:06:00 18 /min [facility] Oxygen saturation in 2023-03-19 18:06:00 99 /min [facility] Arterial blood by Medical Ce nter Pulse oximetry Body temperature 2023-03-19 09:05:00 36.28 Clarita [facility] Body height 2023-03-19 09:05:00 167.6 cm [facility] Body weight 2023-03-19 09:05:00 94.802 kg [facility] BMI 2023-03-19 09:05:00 33.73 kg/m2 [facility] Procedures Procedure Date / Time Performing Clinician Source Performed CATHETERIZATION, HEART, 2023-03-19 15:41:00 Christin Cole [facility], WITH PERCUTANEOUS Center CORONARY INTERVENTION INSERTION, STENT, 2023-03-19 15:41:00 Kelsey [facility] Medical CORONARY ARTERY Center TYPE AND SCREEN, 2023-03-19 09:52:00 Chyna Izaguirre [facility] AUTOMATED Center ECG 12-LEAD 2023-03-19 09:25:40 Christin Cole [facility] VASCULAR DIAGRAM -SCAN 2023-03-19 00:00:00 Provider, Default [facility] Scanning [place] CARDIAC CATH REPORT - 2023-03-19 00:00:00 Provider, Default [facility] SCAN Scanning Center QUANTAFLO 2022-12-25 15:12:14 Ayah Wilkes ld - External URINALYSIS NONAUTO W/O 2021-07-02 14:45:00 Ayah Wilkes SCOPE URINALYSIS 2020-09-03 09:49:[address] [facility] NOTICE OF PRIVACY 2020-09-03 09:39:35 Doctor Unassigned, [facility] Medical Branch CONSENT/REFUSAL FOR 2020-09-03 09:39:13 Doctor Unassigned, No [facility]NOSIS AND TREATMENT Name Medical Branch LIPASE 2020-09-03 09:25:[address] [facility] TROPONIN I 2020-09-03 09:25:[address] [facility] HEPATIC FUNCTION PANEL 2020-09-03 09:25:00 Lilly Barba [facility] ([id number]) (ALB,T.PRO,BILI Medical Branch T,BU/BC,ALT,AST,ALK PHOS) BASIC METABOLIC PANEL 2020-09-03 09:25:00 Lilly Barba [facility] (NA, K, CL, CO2, Medical Branch GLUCOSE, BUN, CREATININE, CA) CBC WITH DIFF 2020-09-03 09:25:00 Lilly Barba [facility] Branch Plan of Care Planned Activity Planned Date Details Comments Source Future Scheduled 2026-01-10 DTAP/TDAP/TD VACCINES [facility] 00:[facility]:00 (2 - Td or Tdap) [code [facility] al Center = DTAP/TDAP/TD VACCINES (2 - Td or Tdap)] Future Scheduled 2026-01-10 DTAP/TDAP/TD VACCINES [facility] 00:00:00 (2 - Td or Tdap) [code [facility] al Center = DTAP/TDAP/TD VACCINES (2 - Td or Tdap)] Future Scheduled 2024-03-[address] [facility] Test 00:00:00 Counseling and Medical Cente r Screening (12+) [code = Tobacco Cessation Counseling and Screening (12+)] Future Scheduled 2023-04-[address] [facility] Test 00:00:00 (Season Ended) [code = Medic al Center INFLUENZA VACCINE (Season Ended)] Future Scheduled 2023-04-24 Influenza Vaccine (#1) [facility] 00:00:00 [code = Influenza Medical Ce nter Vaccine (#1)] Future Scheduled 2022-10-[address] [...] RISK Medical C enter SCREENING] Future Scheduled 2022-08-[address] [facility] Test 00:00:00 (12+) [code = Medical Center DEPRESSION SCREENING (12+)] Future Scheduled 2022-08-24 FALLS RISK SCREENING [facility] Test 00:00:00 [code = FALLS RISK Medical C enter SCREENING] Future Scheduled 2021-08-27 COVID-19 VACCINE (2 - [facility] 00:[facility]00 Pfizer series) [code = Medic al Center COVID-19 VACCINE (2 - Pfizer series)] Future Scheduled 2021-08-[address] [facility] 00:00:00 WELLNESS (YEAR 2 or Medical Center FIRST YEAR if no IPPE) [code = MEDICARE ANNUAL WELLNESS (YEAR 2 or FIRST YEAR if no IPPE)] Future Scheduled 2021-08-[address] [...] Center VACCINES (2 of 3)] Future Scheduled 2013-11-25 SHINGLES VACCINES ([address] [facility] 00:00:00 3) [code = SHINGLES Medical Center VACCINES (2 of 3)] Future Scheduled 1968-01-17 HEPATITIS C SCREENING [facility] 00:00:00 [code = HEPATITIS C Medical Center SCREENING] Future Scheduled 1968-01-17 HEPATITIS C SCREENING [facility] 00:00:00 [code = HEPATITIS C Medical Center SCREENING] Future Scheduled 1950 CT Colonography (combo) [facility] Test 00:00:00 [code = CT Colonography [facility] (combo)] Future Scheduled 1950 Screening for malignant [facility] Test 00:00:00 neoplasm of colon Medical Ce nter (procedure) [code = 593467184] Future Scheduled 1950 Screening for malignant [facility] Test 00:00:00 neoplasm of colon Medical Ce nter (procedure) [code = 407998642] Future Scheduled 1950 Screening for malignant [facility] Test 00:00:00 neoplasm of colon Medical Ce nter (procedure) [code = 051866667] Future Scheduled 1950 Screening for malignant [facility] Test 00:00:00 neoplasm of colon Medical Ce nter (procedure) [code = 021666576] Future Scheduled 1950 Sigmoidoscopy [code = [facility] 00:[facility] Sigmoidoscopy] Medical Cente r Future Scheduled 1950 CT Colonography (combo) [facility] Test 00:00:00 [code = CT Colonography [facility] (combo)] Future Scheduled 1950 Screening for malignant [facility] Test 00:00:00 neoplasm of colon Medical Ce nter (procedure) [code = 550315816] Future Scheduled 1950 Screening for malignant [facility] Test 00:00:00 neoplasm of colon Medical Ce nter (procedure) [code = 415677156] Future Scheduled 1950 Screening for malignant [facility] Test 00:00:00 neoplasm of colon Medical Ce nter (procedure) [code = 173495924] Future Scheduled 1950 Screening for malignant [facility] Test 00:00:00 neoplasm of colon Medical Ce nter (procedure) [code = [id number]] Future Scheduled 1950 Sigmoidoscopy [code = [facility] 00:[facility]:00 S[facility]] [facility] Encounters Start End Encounter Admission Attending Care Care Encounter Source Date/Time Date/Time Type Type Clinicians Facility Department ID 2023-03-19 2023-03-19 Surgery [facility] [id number] 16:39:00 19:15:00 [facility] 2023-03-19 2023-03-19 Outpatient [facility] Surgery [id number] SLE 08:46:00 18:30:00 [facility] 2023-03-19 2023-03-19 [facility] [id number] 08:46:00 18:30:00 Encounter [facility] 2023-03-19 2023-03-19 Outpatient SCHEDULE, SARA RUIZ [id number] Sara 07:30:00 07:30:00 MASSUMI Seybol d 2023-03-19 2023-03-19 Outpatient AKIRASARA SINGER [id number] Sara 00:00:00 00:00:00 CHRISTIN Seybol d 2023-03-18 2023-03-18 Outpatient SARA RUIZ [id number] Sara 12:35:00 12:35:00 Seybol d 2023-03-18 2023-03-18 Outpatient LAB47 SARA RUIZ [id number] Sara 12:30:00 12:30:00 Seybol d 2023-03-14 2023-03-14 Outpatient KATRINSARA GOODMAN [id number] Sara 00:00:00 00:00:00 AYAH Seybol d 2023-03-07 2023-03-07 Outpatient LAB47 SARA RUIZ [id number] Sara 08:00:00 08:00:00 Seybol d 2023-03-02 2023-03-02 Outpatient SARA GARCIA [id number] Sara 00:00:00 00:00:00 ALEJANDRO Thornton ld 2023-03-02 2023-03-02 Outpatient SARA RUIZ [id number] Sara 00:00:00 00:00:00 Seybol d 2023-02-27 2023-02-27 Outpatient SARA GARCIA [id number] Sara 00:00:00 00:00:00 ALEJANDRO acevedo 2023-02-27 2023-02-27 Outpatient SARA GARCIA [id number] Sara 00:00:00 00:00:00 ALEJANDRO acevedo 2023-02-27 2023-02-27 Outpatient HUONG RUIZ [id number] Sara 00:00:00 00:00:00 MD GEOVANNY Seybol d 2023-02-25 2023-02-25 Outpatient SARA RUIZ [id number] Sara 10:30:00 10:30:00 Seybol d 2023-02-25 2023-02-25 Outpatient SARA RUIZ [id number] Sara 09:30:00 09:30:00 Seybol d 2023-02-25 2023-02-25 Outpatient SARA RUIZ [id number] Sara 09:00:00 09:00:00 Seybol d 2023-02-25 2023-02-25 Outpatient SARA RUIZ [id number] Sara 08:00:00 08:00:00 Seybol d 2023-02-25 2023-02-25 Outpatient SARA GARCIA [id number] Sara 00:00:00 00:00:00 ALEJANDRO Seybo ld 2023-02-09 2023-02-09 Outpatient KYMSARABELENSherie RUIZ [id number] Sara 00:00:00 00:00:00 MD GEOVANNY Seybol d 2023-02-08 2023-02-08 Outpatient SARA TATE [id number] Sraa 09:00:00 09:00:00 JOSUÉ Seybol d 2023-02-07 2023-02-07 Outpatient SARA LEYVA [id number] Sara 00:00:00 00:00:00 MELISSA Seybo ld 2023-01-23 2023-01-23 Outpatient SARA GARCIA [id number] Sara 13:20:00 13:20:00 ALEJANDRO Seybo ld 2023-01-23 2023-01-23 Outpatient 39JACKTER SARA RUIZ [id number] Sara 13:00:00 13:00:00 Seybol d 2023-01-15 2023-01-15 Outpatient SARA RODRIGUEZ [id number] Sara 17:20:00 17:20:00 HARISH Seybol d 2022-12-29 2022-12-29 Outpatient SARA WILKES [id number] Sara 00:00:00 00:00:00 AYAH Seybol d 2022-12-25 2022-12-25 Outpatient LAB59 SARA RUIZ [id number] Sara 11:30:00 11:30:00 Seybol d 2022-12-25 2022-12-25 Outpatient SARA WILKES [id number] Sara 10:30:00 10:30:00 AYAH Seybol d 2022-12-22 2022-12-22 Outpatient KATRIN, SARA RUIZ [id number] Sara 00:00:00 00:00:00 AYAH Seybol d 2022-12-21 2022-12-21 Outpatient KATRIN, SARA RUIZ [id number] Sara 00:00:00 00:00:00 AYAH Seybol d 2022-09-26 2022-09-26 Outpatient ZAMONIKULYSSESRIEb, SARA RUIZ [id number] Sara 00:00:00 00:00:00 BRYNN Seybol d 2022-09-25 2022-09-25 Outpatient KATRINSARA [id number] Sara 00:00:00 00:00:00 AYAH Seybol d 2022-09-23 2022-09-23 Outpatient ZAAMIRARIA, SARA RUIZ [id number] Sara 00:00:00 00:00:00 BRYNN Seybol d 2022-09-19 2022-09-19 Outpatient KATRIN, SARA RUIZ [id number] Sara 00:00:00 00:00:00 AYAH Seybol d 2022-08-08 2022-08-08 Outpatient KATRINSARA [id number] Sara 00:00:00 00:00:00 AYAH Seybol d 2022-07-25 2022-07-25 Outpatient AARONSARA PIZARRO [id number] Sara 13:40:00 13:40:00 ROMMEL Seybol d 2022-07-25 2022-07-25 Outpatient SARA RUIZ [id number] Sara 12:40:00 12:40:00 Seybol d 2022-07-25 2022-07-25 Outpatient AARONSARA PIZARRO [id number] Sara 00:00:00 00:00:00 ROMMEL Seybol d 2022-07-24 2022-07-24 Outpatient SARA SHEARER [id number] Sara 10:30:00 10:30:00 RELL Seybo ld 2022-07-10 2022-07-10 Outpatient SYEDA MARTINI [id number] Sara 06:30:00 06:30:00 Seybol d 2022-07-10 2022-07-10 Outpatient DAVIDSUNG PEREZ SARA RUIZ [id number] Sara 00:00:00 00:00:00 Seybol d 2022-07-01 2022-07-01 Outpatient VINI, SYEDA SARA RUIZ [id number] Sara 00:00:00 00:00:00 Seybol d 2022-06-11 2022-06-11 Outpatient ANGELSherie RUIZ [id number] Sara 00:00:00 00:00:00 MD GEOVANNY Seybol d 2022-06-10 2022-06-10 Outpatient SARA LARES [id number] Sara 10:00:00 10:00:00 SINA Seybol d 2022-06-05 2022-06-05 Outpatient VINI, SYEDABeverly RUIZ [id number] Sara 09:00:00 09:00:00 Seybol d 2022-06-05 2022-06-05 Outpatient LUÍS SARA RUIZ [id number] Sara 00:00:00 00:00:00 GUERITA Seybol d 2022-05-20 2022-05-20 Outpatient LAB53 SARA RUIZ [id number] Sara 09:35:00 09:35:00 Seybol d 2022-05-20 2022-05-20 Outpatient VINI, SYEDABeverly RUIZ [id number] Sara 09:00:00 09:00:00 Seybol d 2022-05-20 2022-05-20 Outpatient VINI, SYEDA SARA RUIZ [id number] Sara 00:00:00 00:00:00 Seybol d 2022-05-19 2022-05-19 Outpatient VINI, SYEDA RUIZ [id number] Sara 00:00:00 00:00:00 Seybol d 2022-05-19 2022-05-19 Outpatient ANGELSherie RUIZ [id number] Sara 00:00:00 00:00:00 MD GEOVANNY Seybol d 2022-02-19 2022-02-19 TelemedicPARAMJIT Herrera [id number] Sara 16:30:00 16:30:00 ne BELIA 350.1.13.13 Se ybold 1.2.7.2.686 [id number] 2022-02-18 2022-02-18 Outpatient SARA WILKES [id number] Sara 00:00:00 00:00:00 AYAH Seybol d 2022-02-13 2022-02-13 Outpatient SARA WILKES [id number] Sara 00:00:00 00:00:00 AYAH Seybol d 2022-01-25 2022-01-25 Outpatient SARA RUIZ [id number] Sara 09:35:00 09:35:00 Seybol d 2022-01-25 2022-01-25 Outpatient LAB45 SARA RUIZ [id number] Sara 09:20:00 09:20:00 Seybol d 2022-01-23 2022-01-23 Office NILSA Sanchez 1.2.840.114 [id number] Sara 14:30:00 15:00:00 Visit [facility] 350.1.13.13 Se ybold 1.2.7.2.686 [id number] 2022-01-23 2022-01-23 Office NILSA Cortez [id number] Sara 09:45:00 10:00:00 Visit [facility] 350.1.13.13 S eybold 1.2.7.2.686 [id number] 2022-01-23 2022-01-23 Outpatient SARA WILKES [id number] Sara 08:00:00 08:00:00 AYAH Seybol d 2021-11-25 2021-11-25 Outpatient SARA GARCIA [id number] Sara 10:40:00 10:40:00 ALEJANDRO acevedo 2021-11-25 2021-11-25 Outpatient 39, HOLTER SARA RUIZ [id number] Sara 10:30:00 10:30:00 Seybol d 2021-11-09 2021-11-09 Telemedici LUCY YUSUF 1.2.840.114 [id number] Sara 10:30:00 10:30:00 va HINES 350.1.13.13 Se ybold 1.2.7.2.686 [id number] 2021-11-09 2021-11-09 Outpatient SARA STACK [id number] Sara 00:00:00 00:00:00 DEMARCUS Seybol d 2021-11-06 2021-11-06 Outpatient SARA WILKES [id number] Sara 00:00:00 00:00:00 AYAH Seybol d 2021-10-30 2021-10-30 Outpatient SARA WILKES [id number] Sara 00:00:00 00:00:00 AYAH Seybol d 2021-10-28 2021-10-28 Outpatient JEANETTE GARCIA, [facility] Surgery [id number] SLE 07:44:00 18:25:00 ALEJANDRO 2021-10-28 2021-10-28 Outpatient SARA COLE [id number] Sara 00:00:00 00:00:00 CHRISTIN Seybol d 2021-10-24 2021-10-24 Outpatient ZONIA, [facility] SARA RUIZ [id number] Sara 09:20:00 09:20:00 Seybol d 2021-10-24 2021-10-24 Outpatient SSY58-WUJ SARA RUIZ [id number] Sara 09:20:00 09:20:00 Seybol d 2021-10-18 2021-10-18 Outpatient SARA RUIZ [id number] Sara 08:00:00 08:00:00 Seybol d 2021-10-18 2021-10-18 Outpatient LAB47 SARA RUIZ [id number] Sara 07:35:00 07:35:00 Seybol d 2021-10-17 2021-10-17 Outpatient SARA RUIZ [id number] Sara 00:00:00 00:00:00 Seybol d 2021-10-16 2021-10-16 Outpatient SARA GARCIA [id number] Sara 00:00:00 00:00:00 ALEJANDRO Thornton ld 2021-10-15 2021-10-15 Outpatient JAMAZIGGY SARA RUIZ [id number] Sara 00:00:00 00:00:00 MD GEOVANNY Seybol d 2021-10-11 2021-10-11 Outpatient SARA RUIZ [id number] Sara 14:00:00 14:00:00 Seybol d 2021-10-11 2021-10-11 Outpatient SARA RUIZ [id number] Sara 10:00:00 10:00:00 Seybol d 2021-10-11 2021-10-11 Outpatient KYMSARAZIGGY SARA RUIZ [id number] Sara 00:00:00 00:00:00 MD GEOVANNY Seybol d 2021-10-09 2021-10-09 Outpatient LAB61 SARA RUIZ [id number] Sara 07:50:00 07:50:00 Seybol d 2021-09-30 2021-09-30 Outpatient SARA GARCIA [id number] Sara 11:00:00 11:00:00 ALEJANDRO Thornton ld 2021-09-30 2021-09-30 Outpatient 39, HOLTER SARA RUIZ [id number] Sara 11:00:00 11:00:00 Seybol d 2021-09-30 2021-09-30 Outpatient RADIOLOGYSARA [id number] Sara 00:00:00 00:00:00 DEPT Seybol d 2021-09-20 2021-09-20 Outpatient VERÓNICASARA [id number] Sara 00:00:00 00:00:00 ATASU Seybol d 2021-08-21 2021-08-21 Outpatient SARA WILKES [id number] Sara 00:00:00 00:00:00 AYAH Seybol d 2021-08-03 2021-08-03 Outpatient SARA WILKES [id number] Sara 00:00:00 00:00:00 AYAH Seybol d 2021-07-30 2021-07-30 Outpatient SARA WILKES [id number] Sara 00:00:00 00:00:00 AYAH Seybol d 2021-07-02 2021-07-02 Outpatient COVID-PFIZE SARA RUIZ [id number] Sara 11:30:00 11:30:00 Piero QUARLES 2021-07-02 2021-07-02 Outpatient LAB59 SARA RUIZ [id number] Sara 09:20:00 09:20:00 Seybol d 2021-07-02 2021-07-02 Outpatient XXK53-GYF SARA SARA [id number] Sara 09:15:00 09:15:00 Seybol d 2021-07-02 2021-07-02 Office PARAMJIT Wilkes 1.2.840.114 [id number] Sara 07:33:48 07:48:48 Visit Ayah 350.1.13.13 Se ybold 1.2.7.2.686 [id number] 2021-05-30 2021-05-30 Telemedici PARAMJIT Wilkes 1.2.840.114 [id number] Sara 14:13:45 14:23:16 ne Ayah 350.1.13.13 Se ybold 1.2.7.2.686 [id number] 2021-05-13 2021-05-13 Outpatient MYKELPIEROONL SARA RUIZ [id number] Sara 00:00:00 00:00:00 MD Rashard SMALL d 2020-09-03 2020-09-03 Emergency Jameson CAROCIO 1.2.840.114 [id number] [facility] 03:23:00 06:47:00 [facility] [id number] [place] [address] [place] 2020-09-03 2020-09-03 Emergency X JAMESON CAROCIO ERT [id number] [facility] 03:23:00 03:23:00 LILLY lopez [facility] 2019-10-22 2019-10-23 Emergency E SONYA [facility] [id number] [facility] 19:46:00 00:35:00 LISBETH Results Test Description Test Time Test Comments Results Result Comments Source COREYLO 2022-12-25 15:14:01 Test Item Value Reference Range Interpretation Comme nts Coreylo left side (test 1.34 See_Comment [ Automated message] The system which code = 84077-0W) generated t his result transmitted reference range : 1.40 - 0.90 NA. The reference range was not used to interpret this result as normal/abnormal . uYsraaFlo right side (test 1.36 See_Comment P resentation Factors: code = 50644-0Z) Hyperlipide miaExercise Modality: At Restrestest x2 right [...] as normal/abnormal . Sara Rivas - ExternalPOCT-GLUCOSE [id number] 14:10:44 Test Item Value Reference Range Interpretation Comments POC-GLUCOSE METER 84 mg/dL 70-110 : TESTED A T [place] [address] ([facility]) (test code = [facility], 1538) [address]: Fitness And Wellness Coordinator/Techni keshia ID = [id number] for FABARBARA MISHRA [id number] 13:37:51 Test Item Value Reference Range Interpretation Comments ACTIVATED CLOTTING TIME 249 sec : 74 -137 seconds, (BEAKER) (test code = Baseli ne: TESTED AT 441) [facility] [address] [facility], [address]: Fitness And Wellness Coordinator/Techni keshia ID = [id number] for Do geo, Kumar [id number] 12:56:14 Test Item Value Reference Range Interpretation Comments ACTIVATED CLOTTING TIME 279 sec : 74 -137 seconds, (BEAKER) (test code = Baseli ne: TESTED AT 441) [facility] [address] [facility], 7[address]: Fitness And Wellness Coordinator/Techni keshia ID = [id number] for Do geo, Kumar URINALYSIS NONAUTO W/O [id number] 14:45:00 Test Item Value Reference Range Interpretation Comments UD KETONES (test code neg 5-160 = 538663) UD GLUCOSE (test code neg 100-2000 = 755377) UD PROTEIN (test code neg Trace - 2000 mg/dL = 294301) UD LEUKOCYTES (test neg Trace - Large @ 2 code = 529581) min. UD NITRITE (test code neg Neg. - Pos. @ 60 = 831897) sec. UD UROBILINOGEN (test 0.2 mg/dL 0.2-8 code = 979812) UD PH (test code = See_Comment [Automat ed message] 739790) The system [employer] generated this result transmit natalie reference range : 5.0 - 8.5 @ 60 sec. . The reference range was not used to interpret this result as normal/abnormal . UD BLOOD (test code = neg Neg. - Large @ 60 072617) sec. UD SPECIFIC GRAVITY See_Comment [Automa natalie message] (test code = 770369) The sys tem which generated this result transmit natalie reference range : 1.000 - 1.030 @ 45 sec.. The refer ence range was not u sed to interpret th is result as normal/abnormal . UD BILIRUBIN (test neg Neg. - Large @ 45 code = 526072) sec. Sara [id number] 10:20:00 Test Item Value Reference Range Interpretation Comments APPEARANCE (test code = Clear Clear 7182111915) COLOR (test code = Yellow Yellow 6533921330) PH (test code = 4.8-8.0 6728015133) SP GRAVITY (test code = 1.003-1.030 5483939486) GLU U QUAL (test code = Normal Normal 1834173859) BLOOD (test code = Negative Negative INTERFERE NCE FROM 8970137446) ASCORBIC ACID M AY CAUSE FALSE NEG ATIVE RESULT KETONES (test code = 5 mg/dL Negative A 6767833890) PROTEIN (test code = Negative Negative 2887-8) UROBILIN (test code = Normal Normal 0783135105) BILIRUBIN (test code = Negative Negative 7182028540) NITRITE (test code = Negative Negative 5508920051) LEUK HUGO (test code = Negative Negative 4879594702) RBC/HPF (test code = See_Comment [Autom ated message] 5901932701) The system [employer] generated this result transmitted ref erence range: 0 - 3 HP F. The reference range was not used to int erpret this result as normal/abnormal . WBC/HPF (test code = See_Comment [Autom ated message] 4075058512) The system [employer] generated this result transmitted ref erence range: 0 - 5 HP F. The reference range was not used to int erpret this result as normal/abnormal . BACTERIA (test code = Few Negative A 7584192529) MUCOUS (test code = Slight Negative LPF A 4388756287) Lab Interpretation (test Abnormal code = 06330-5) [id number] 09:57:00 Test Item Value Reference Range Interpretation Comments TROPONIN I (test <0.012 See_Comment [Automated code = 1077553647) message] The system which generated this result [...] ? Lab Interpretation Normal (test code = 86081-9) [facility] (NA, K, CL, CO2, GLUCOSE, BUN, CREATININE, CA)2020-09-03 09:45:00 Test Item Value Reference Range Interpretation Comments NA (test code = 141 mmol/L 135-145 5493469309) K (test code = 4.5 mmol/L 3.5-5 5729396142) CL (test code = 112 mmol/L 98-108 H 5987282151) CO2 TOTAL (test code = 18 mmol/L 23-31 L 5600746667) AGAP (test code = 2-16 6918663874) BUN (test code = 29 mg/dL 7-23 H 5351893730) GLUCOSE (test code = 167 mg/dL 70-110 H 4800850545) CREATININE (test code = 1.10 mg/dL 0.6-1.25 5432721631) CALCIUM (test code = 8.8 mg/dL 8.6-10.6 0939200722) eGFR Calculation mL/min/1.73m2 (Non-) (test code = 3471905485) eGFR Calculation mL/min/1.73m2 () (test code = 3633207863) BE (test code = BE) Association of [...] tests). Lab Interpretation Abnormal (test code = 77999-7) [facility] (ALB, T.PRO, BILI T, BU/BC, ALT, AST, ALK PHOS)2020-09-03 09:45:00 Test Item Value Reference Range Interpretation Comments TOTAL BILI (test code = 3576047851) 1.0 mg/dL 0.1-1.1 BILI UNCON (test code = 8624976185) 0.8 mg/dL 0.1-1.1 BILI CONJ (test code = 2848949833) 0.0 mg/dL 0-0.3 T PROTEIN (test code = 8680749939) 7.3 g/dL 6.3-8.2 ALBUMIN (test code = 2724269168) 4.2 g/dL 3.5-5 ALK PHOS (test code = 9069511435) 82 U/L 34-122 ALTv (test code = 1742-6) 29 U/L 5-50 AST(SGOT) (test code = 3965199484) 45 U/L 13-40 H Lab Interpretation (test code = Abnormal 46060-5) [facility] [id number] 09:45:00 Test Item Value Reference Range Interpretation Comments LIPASE (test code = 4394290930) 14 U/L 0-220 Lab Interpretation (test code = Normal 24625-5) [facility] with [id number] 09:32:00 Test Item Value Reference Range Interpretation Comments WBC (test code = See_Comment [Automated 2156-2) message] The sy stem which generated this result transmitted reference range : 4.20 - 10.70 10*3/?L. The reference range was not used to interpret this result as normal/abnormal . RBC (test code = See_Comment [Automated 717-8) message] The sy stem which generated this [...] RDW-SD (test code = 50.6 fL 38.5-51.6 30432-6) RDW-CV (test code = 14.4 % 12.1-15.4 788-0) PLT (test code = See_Comment [Automated 777-3) message] The sy stem which generated this result transmitted reference range : 150 - 328 10*3/ ?L. The reference r tran was not used to interpret this result as normal/abnormal . MPV (test code = 9.6 fL 9.8-13 L 41311-4) NRBC/100 WBC (test See_Comment [Automat ed code = 7824132973) message] The system which generated this result transmitted reference range : 0.0 - 10.0 /100 WBCs. The refer ence range was not u sed to interpret th is result as normal/abnormal . NRBC x10^3 (test code <0.01 See_Comment [Auto mated = 9521180805) message] The s ystem which generated this result transmitted reference range : 10*3/?L. The reference range was not used to interpret this result as normal/abnormal . GRAN MAT (NEUT) % 84.4 % (test code = 770-8) IMM GRAN % (test code 0.50 % = 6589035398) LYMPH % (test code = 9.9 % 736-9) MONO % (test code = 4.4 % 5905-5) EOS % (test code = 0.6 % 713-8) BASO % (test code = 0.2 % 706-2) GRAN MAT x10^3(ANC) 7.36 10*3/uL 1.99-6.95 H (test code = 7145835790) IMM GRAN x10^3 (test 0.04 10*3/uL 0-0.06 code = 6093474989) LYMPH x10^3 (test code 0.86 10*3/uL 1.09-3.23 L = 731-0) MONO x10^3 (test code 0.38 10*3/uL 0.36-1.02 = 742-7) EOS x10^3 (test code = 0.05 10*3/uL 0.06-0.53 L 711-2) BASO x10^3 (test code <0.03 0.01-0.09 = 704-7) Lab Interpretation Abnormal (test code = 34705-6) [facility]"
--- NOTE | 2023-04-04 12:06 | EDPHYS ---
Physician Documentation [facility] Name: Cristóbal Palm Age: 73 yrs Sex: Male : 1950 Arrival Date: 04/04/2023 Time: 09:43 Bed 14 Private MD: ED Physician Stephan Mitchell HPI: 04/04 12:00 This 73 yrs old Male presents to ER via Ambulatory with complaints of General Weakness, kb Cold Symptoms. 12:00 The patient or guardian reports cough, that is intermittent, described as mild. Onset: kb The symptoms/episode began/occurred yesterday. Severity of symptoms: At their worst the symptoms were moderate, in the emergency department the symptoms are unchanged. Modifying factors: The symptoms are alleviated by nothing, the symptoms are aggravated by nothing. Associated signs and symptoms: Pertinent positives: rhinorrhea, Pertinent negatives: chest pain, diarrhea, ear ache, fever, nausea, sore throat, vomiting. The patient has not experienced similar symptoms in the past. The patient has not recently seen a physician. "My says I have covid." Pt reports runny nose, sneezing and "coughing like crazy" since yesterday. Historical: - Allergies: 10:13 No Known Allergies; me1 - Home Meds: 10:13 atorvastatin oral [Active]; lisinopril Oral [Active]; Metformin Oral [Active]; me1 - PMHx: 10:13 High Cholesterol; Hypertension; Prostate Cancer; Diabetes mellitus; me1 - PSHx: 10:13 Stented artery; shoulder surgery; me1 - Immunization history:: Adult Immunizations up to date. - Social history:: Smoking status: Patient denies any tobacco usage or history of. ROS: 11:09 Constitutional: Negative for fever, chills, and weight loss. kb 11:09 ENT: Positive for rhinorrhea. 11:09 Respiratory: Positive for cough. 11:09 All other systems are negative. Exam: 11:09 Constitutional: This is a well developed, well nourished patient who is awake, alert, kb and in no acute distress. Head/Face: Normocephalic, atraumatic. ENT: Moist Mucous membranes Cardiovascular: Regular rate and rhythm with a normal S1 and S2. No gallops, murmurs, or rubs. No pulse deficits. Respiratory: Respirations even and unlabored. No increased work of breathing. Talking in full sentences Abdomen/GI: Soft, non-tender. No distention Skin: Warm, dry with normal turgor. Normal color. MS/ Extremity: Pulses equal, no cyanosis. Neurovascular intact. Full, normal range of motion. Neuro: Awake and alert, GCS 15, oriented to person, place, time, and situation. Moves all extremities. Normal gait. Vital Signs: 10:10 BP 97 / 67; Pulse 70; Resp 18; Temp 99.1(O); Pulse Ox 98% on R/A; Weight 92.99 kg; me1 Height 5 ft. 6 in. ; Pain 0/10; 10:28 BP 98 / 61; Pulse 75; Resp 18; Pulse Ox 95% on R/A; me1 11:25 BP 83 / 59; Pulse 68; Resp 16; Pulse Ox 95% on R/A; me1 12:12 BP 80 / 63; Pulse 61; Resp 18; Pulse Ox 98% on R/A; Pain 0/10; me1 10:10 Body Mass Index 33.09 (92.99 kg, 167.64 cm) me1 10:10 Pain Scale: Adult me1 12:12 Pain Scale: Adult me1 MDM: 09:49 Patient medically screened. kb 12:01 Differential Diagnosis: Influenza Upper Respiratory Infection Viral Syndrome Pneumonia kb Other covid. Data reviewed: vital signs, nurses notes. Test considered but Not performed: X-ray: chest x-ray considered, but lungs clear bilaterally, resp even and unlabored. Pt in no distress. Counseling: I had a detailed discussion with the patient and/or guardian regarding: the historical points, exam findings, and any diagnostic results supporting the discharge/admit diagnosis, lab results, the need for outpatient follow up, a family practitioner, to return to the emergency department if symptoms worsen or persist or if there are any questions or concerns that arise at home. 12:09 ED course: Discussed IV fluids for hypotension. Pt does not want anything else done. kb States his blood pressure is always like that. Denies dizziness, lightheadedness, near-syncope. 04/04 09:52 Order name: Flu; Complete Time: 10:33 kb 04/04 09:52 Order name: COVID-19 SARS RT PCR; Complete Time: 12:02 kb Administered Medications: No medications were administered Disposition: 16:51 Co-signature as Attending Physician, Stephan Mitchell MD I agree with the assessment and kdr plan of care. Disposition Summary: 04/04/23 12:06 Discharge Ordered Location: Home kb Condition: Stable kb Diagnosis - SARS-associated coronavirus as the cause of diseases classified elsewhere kb Followup: kb - With: Emergency Department - When: As needed - Reason: Worsening of condition Followup: kb - With: Private Physician - When: 2 - 3 days - Reason: Recheck today's complaints, Continuance of care, Re-evaluation by your physician Discharge Instructions: - Discharge Summary Sheet kb - COVID-19 kb - Viral Illness, Adult kb Forms: - Medication Reconciliation Form kb - Thank You Letter kb - Antibiotic Education kb - Prescription Opioid Use kb - Patient Portal Instructions kb - Leadership Thank You Letter kb Prescriptions: - Tessalon Perles 100 mg Oral Capsule - take 1 capsule by ORAL route every 8 hours As needed; 15 capsule; Refills: 0, kb Product Selection Permitted Signatures: Dispatcher [employer] EDMegan Liriano, ENAMEL FINISHER-C ENAMEL FINISHER-Stephan Lofton MD MD [facility] Saumya Pedraza, RN RN me1
--- NOTE | 2023-04-04 12:06 | ER ---
Nurse's Notes [facility] Name: Cristóbal Palm Age: 73 yrs Sex: Male : 1950 Arrival Date: 04/04/2023 Time: 09:43 Bed 14 Private MD: Diagnosis: SARS-associated coronavirus as the cause of diseases classified elsewhere Presentation: 04/04 10:10 Chief complaint: Patient states: cough, runny nose, sore throat that started yesterday. me1 c/o weakness/fatigue. Coronavirus screen: Vaccine status: Patient reports receiving the 2nd dose of the covid vaccine. congestion, cough unrelated to allergies, runny nose, sore throat. Ebola Screen: No symptoms or risks identified at this time. Initial Sepsis Screen: Does the patient meet any 2 criteria? No. Patient's initial sepsis screen is negative. Does the patient have a suspected source of infection? No. Patient's initial sepsis screen is negative. Risk Assessment: Do you want to hurt yourself or someone else? Patient reports no desire to harm self or others. Onset of symptoms was April 03, 2023. 10:10 Method Of Arrival: Ambulatory mn1 10:10 Acuity: LINDA 3 me1 Triage Assessment: 10:13 General: Appears uncomfortable, well groomed, well developed, well nourished, Behavior me1 is calm, cooperative, appropriate for age, Reports feeling ill for fatigue for sore throat, cough, runny nose that started yesterday. Denies fever. Pain: Denies pain. Neuro: Level of Consciousness is awake, alert, obeys commands, Oriented to person, place, time, situation, Appropriate for age. Cardiovascular: Capillary refill < 3 seconds Patient's skin is warm and dry. Respiratory: Reports cough that is Airway is patent Respiratory effort is even, unlabored, Respiratory pattern is regular, symmetrical. Historical: - Allergies: 10:13 No Known Allergies; me1 - Home Meds: 10:13 atorvastatin oral [Active]; lisinopril Oral [Active]; Metformin Oral [Active]; me1 - PMHx: 10:13 High Cholesterol; Hypertension; Prostate Cancer; Diabetes mellitus; me1 - PSHx: 10:13 Stented artery; shoulder surgery; me1 - Immunization history:: Adult Immunizations up to date. - Social history:: Smoking status: Patient denies any tobacco usage or history of. Screenin:16 [facility] ED Fall Risk Assessment (Adult) Score/Fall Risk Level 0 - 2 = Low Risk. Abuse me1 screen: Denies threats or abuse. Nutritional screening: No deficits noted. Tuberculosis screening: No symptoms or risk factors identified. Assessment: 10:16 General: See triage assessment. . me1 Vital Signs: 10:10 BP 97 / 67; Pulse 70; Resp 18; Temp 99.1(O); Pulse Ox 98% on R/A; Weight 92.99 kg; me1 Height 5 ft. 6 in. ; Pain 0/10; 10:28 BP 98 / 61; Pulse 75; Resp 18; Pulse Ox 95% on R/A; me1 11:25 BP 83 / 59; Pulse 68; Resp 16; Pulse Ox 95% on R/A; me1 12:12 BP 80 / 63; Pulse 61; Resp 18; Pulse Ox 98% on R/A; Pain 0/10; me1 10:10 Body Mass Index 33.09 (92.99 kg, 167.64 cm) me1 10:10 Pain Scale: Adult me1 12:12 Pain Scale: Adult me1 ED Course: 09:45 Patient arrived in ED. ts1 09:47 Megan Trujillo FNP-C [facility]. kb 09:48 Stephan Mitchell MD is Attending Physician. kb 09:52 Saumya Pedraza, KARLA is Primary Nurse. me1 10:03 COVID-19 SARS RT PCR Sent. me1 10:03 Flu Sent. me1 10:13 Triage completed. me1 10:13 Arm band placed on Patient placed in waiting room. me1 10:16 No provider procedures requiring assistance completed. Patient did not have IV access me1 during this emergency room visit. 10:16 Patient has correct armband on for positive identification. Bed in low position. Call me1 light in reach. Side rails up X 1. Provided Education on: POC. Verbalized understanding. . Administered Medications: No medications were administered Medication: 10:16 VIS not applicable for this client. me1 Outcome: 12:06 Discharge ordered by . elina 12:07 Discharged to home ambulatory. me1 12:07 Condition: stable 12:07 Discharge instructions given to patient, Instructed on discharge instructions, follow up and referral plans. medication usage, Demonstrated understanding of instructions, follow-up care, medications, Prescriptions given X 1. 12:13 Patient left the ED. me1 Signatures: Megan Trujillo, JEFFERSON-Carlos SHAPE HAND-Cayla Ramesh PAS PAS ts1 Saumya Pedraza, RN RN me1 Corrections: (The following items were deleted from the chart) 11:26 10:15 BP 98 / 61; Pulse 68bpm; Resp 16bpm; Pulse Ox 97% RA; me1 me1
[2023-04-04 12:17] VITALS: TEMP 99.1
[2023-04-04 12:21] VITALS: BP 80/63; O2SAT 98
== END 2023-04-04 12:13 | disposition home or self-care (01) ==
LOC: ER 09:43
DX: U07.1 COVID-19 (principal); E11.9 Type 2 diabetes mellitus without complications; I10 Essential (primary) hypertension
CPT/HCPCS: 87635; 87804; 99283